=== PATIENT | male | born 1935 | race Two or more races ===

== ENCOUNTER → 2017-04-24 | Outpatient (REF) | payer MEDICARE, OTHER ==
[~2017-04-24] MED LIST: ASPI81TA85 PO; AZIT500T2 PO; CEFU500T2 PO; DELT1TAB PO; FLUC10TA PO; FURO80TA2 PO; LISI-542 PO; METF850T4 PO; MINI5CAP PO; ZOCO10TA PO
== END ==
LOC: M LAB REF 16:32
PROVIDERS: ATTEND Nurse Practitioner Family
DX: L03.115 Cellulitis of right lower limb (principal)

== ENCOUNTER → 2017-06-30 | Outpatient (CLI) | payer MEDICARE, OTHER ==
--- NOTE | 2017-06-30 15:53 | REP ---
DUPLEX DOPPLER ULTRASOUND RIGHT LOWER EXTREMITY ARTERIAL SYSTEM: Real-time ultrasound evaluation and duplex Doppler interrogation of right lower extremity arterial system is performed. Mild plaquing and narrowing is seen in the right common femoral, superficial femoral and popliteal arteries with relatively normal flow velocities, peak systolic velocity right common femoral artery 75 cm/s, superficial femoral artery 73 cm/s, and popliteal artery 29 cm/s, all with triphasic flow. Moderate calcified plaque is seen in the distal anterior and posterior tibial arteries with moderate diffuse plaquing throughout those vessels. No flow is seen in the distal posterior tibial artery. Proximally velocities 41 cm/s with triphasic flow. Peak systolic velocity of the proximal anterior tibial artery is 28 cm/s with triphasic flow and distal 21 cm/s with monophasic flow. SALLY could not be performed due to the heavily calcified vessels in the lower leg. Signed by Brandon Cardenas MD 06/30/2017 05:23 P
== END ==
LOC: M RAD 13:29
PROVIDERS: ATTEND Surgery
DX: I70.233 Atherosclerosis of native arteries of right leg with ulceration of ankle (principal)

== ENCOUNTER → 2017-07-18 | Outpatient (REF) | payer MEDICARE, OTHER ==
[2017-07-18 15:07] LABS: FOLATE 9.5 NG/ML
[2017-07-18 15:13] LABS: PERCENT SATURATION 16.8 % (19.7-50.0)
== END ==
LOC: M LAB REF 13:21
PROVIDERS: ATTEND Family Medicine
DX: D64.9 Anemia, unspecified (principal)

== ENCOUNTER → 2017-09-09 | Outpatient (CLI) | payer MEDICARE, OTHER ==
[2017-09-09 13:29] LABS: ALBUMIN 3.5 GM/DL (3.2-5.2); ALBUMIN/GLOBULIN RATIO 1.03 (1.00-1.93); BILIRUBIN,TOTAL 0.5 MG/DL (0.2-1.0); CALCIUM LEVEL 8.8 MG/DL (8.8-10.2); CREATININE FOR GFR 1.37 MG/DL (0.70-1.30); POTASSIUM SERUM 4.8 MEQ/L (3.5-5.1); TOTAL PROTEIN 6.9 GM/DL (6.4-8.2)
== END ==
LOC: M LAB 11:48
PROVIDERS: ATTEND Surgery Vascular Surgery
DX: I70.233 Atherosclerosis of native arteries of right leg with ulceration of ankle (principal)

== ENCOUNTER 2017-09-14 08:29 | Outpatient (CLI) | payer MEDICARE, OTHER ==
[~2017-09-14] VITALS: Ht 172.7 cm; Wt 102.3 kg
[2017-09-14] MEDS ORDERED: fentaNYL 100 MCG/2 ML INJECTION (J3010) As Ordered ONE (09:22)
[2017-09-14] MEDS ORDERED: PROTAMINE SULF INJ 50 MG/5 ML VIAL (J2720) As Ordered ONE (09:22)
[2017-09-14] MEDS ORDERED: MIDAZOLAM INJ 2 MG/2 ML VIAL (J2250) As Ordered ONE (09:23)
[2017-09-14] MEDS ORDERED: HEPARIN 1,000 UNITS/ML 10ML VIAL (FOR RADIOLOGY& DIALYSIS ONLY) As Ordered ONE (09:23)
[2017-09-14] MEDS ORDERED: ISOVUE-300 61% 50ML VIAL (Q9967) As Ordered ONE (09:23)
[2017-09-14 17:00] VITALS: BP 145/67
[2017-09-14 17:30] VITALS: BP 119/73
[2017-09-14 18:00] VITALS: BP 110/57
[2017-09-14 19:00] VITALS: BP 108/52
[2017-09-14 20:00] VITALS: BP 140/66
[2017-09-15 02:00] VITALS: BP 127/67
[2017-09-15 06:00] VITALS: BP 126/59
[2017-09-15 06:10] LABS: BASO % 0.3 % (0.0-1.0); EOS # 0.2 10^3/uL (0.0-0.50); EOS % 1.6 % (0.0-3.0); IMMATURE GRANULOCYTE % 0.5 % (0-0); LYMPH # 1.6 10^3/uL (1.5-4.5); LYMPH % 16.6 % (24.0-44.0); MEAN CORPUSCULAR HEMOGLOBIN 29.1 pg (27.0-33.0); MEAN CORPUSCULAR HGB CONC 32.1 g/dl (32.0-36.5); MEAN CORPUSCULAR VOLUME 90.8 fl (80.0-96.0); MONO # 1.4 10^3/uL (0.0-0.8); MONO % 14.5 % (0.0-5.0); NEUTROPHILS # 6.2 10^3/uL (1.8-7.7); NEUTROPHILS % 66.5 % (36.0-66.0); PLATELET COUNT, AUTOMATED 154 10^3/uL (150-450); RED CELL DISTRIBUTION WIDTH 13.4 % (11.5-14.5); WHITE BLOOD COUNT 9.3 10^3/uL (4.0-10.0)
[2017-09-15 06:39] LABS: ANION GAP 7 MEQ/L (8-16); BLOOD UREA NITROGEN 25 MG/DL (7-18); CALCIUM LEVEL 8.1 MG/DL (8.8-10.2); CARBON DIOXIDE LEVEL 27 MEQ/L (21-32); CHLORIDE LEVEL 113 MEQ/L (98-107); CREATININE FOR GFR 1.02 MG/DL (0.70-1.30); GLOMERULAR FILTRATION RATE > 60.0 (>35); GLUCOSE, FASTING 112 MG/DL (83-110); POTASSIUM SERUM 4.5 MEQ/L (3.5-5.1); SODIUM LEVEL 147 MEQ/L (136-145)
--- NOTE | 2017-09-21 06:37 | REPIR ---
DATE OF PROCEDURE: 09/14/2017 PREPROCEDURE DIAGNOSES: Chronic renal insufficiency, diabetes mellitus, hypertension, right lower extremity non-healing ulcer, right foot pain. POSTPROCEDURE DIAGNOSES: Chronic renal insufficiency, diabetes mellitus, hypertension, right lower extremity non-healing ulcer, right foot pain. PROCEDURE: Aortogram, iliofemoral angiogram, selective right common femoral artery catheter placement with right lower extremity angiogram, selective right superficial femoral artery catheter placement with right lower extremity angiogram, selective right popliteal artery catheter placement with right lower extremity angiogram, selective right anterior tibial artery catheter placement with right lower extremity angiogram, right anterior tibial artery arthrectomy with 1.85 mm Jetstream arthrectomy catheter, right popliteal artery arthrectomy with 1.85 mm Jetstream arthrectomy catheter, right anterior tibial artery angioplasty with 4 x 200 mm balloon and 4 x 100 mm balloon, right popliteal artery angioplasty with 4 x 200 and 4 x 100 mm balloon, Mynx closure device to close the left femoral arteriotomy. SURGEON: Dr. Cisco Luis. INDUSTRIAL CONVEYOR BELT REPAIRER: Cate Váqsuez and David Tobar. ANESTHESIA: Local with sedation with 1.5 mg of Versed, 50 mcg of Fentanyl and 10 mL of 2% lidocaine. ESTIMATED BLOOD LOSS: SEDATION TIME: From 11 a.m. to 12:53 a.m. for a total of 113 minutes. Sedation and cardiopulmonary monitoring were performed by the nurse in the room under my direct supervision. I was present for and directed the entire case. HEPARIN: 7000 units followed by 2000 unit bolus. FLUORO TIME: 24.7 minutes. CONTRAST: 21 mL. INDICATION: Patient is an 82-year-old male with a nonhealing right foot ulcer who has previously undergone anterior tibial artery angioplasty and now has delayed healing of his right foot wound and pain and will undergo a repeat right lower extremity angiogram with possible angioplasty, stent and/o arthrectomy. Risks, benefits and alternative treatment options were discussed with the patient. PROCEDURE: The patient was taken to the angiography suite and placed supine on the angiography room table and then prepped and draped in a standard surgical fashion. The left common femoral artery was then cannulated with a micropuncture needle after anesthetizing the overlying skin with 2% lidocaine. The micropuncture wire was advanced through the micropuncture needle which was upsized to a micropuncture sheath. A Bentson wire was advanced through the micropuncture sheath which was upsized to a #5-English sheath. A catheter was placed in the aorta and aortogram was performed. Catheter was pulled down to the level of the bifurcation of the iliac arteries and an iliofemoral angiogram was performed. Catheter was directed over the bifurcation of the iliac arteries and placed in the right common femoral artery and a right lower extremity angiogram was performed. Catheter was advanced as far distal into the right superficial femoral artery and a right lower extremity angiogram was performed. This showed stenosis at the popliteal/anterior tibial artery junction as well as in the mid portion and distal portion of the anterior tibial artery with stenoses on the order of 70-80%. The catheter was advanced into the popliteal artery and an angiogram performed and then this was used to cross lesions in the popliteal and anterior tibial arteries and a catheter was placed in the anterior tibial artery distally and an angiogram performed confirming intraluminal positioning. Arthrectomy of the entire length of the anterior tibial artery and popliteal artery were performed with a Jetstream 1.85 mm catheter. Completion angiogram showed some residual stenosis in the popliteal artery and anterior tibial artery as well as an area of the anterior tibial artery distal near the dorsalis pedis that was unable to be arthrectomized due to length of catheter. The distal and entire length of the anterior tibial artery was then angioplastied with a 4 x 200 balloon and the popliteal artery was angioplastied with a 4 x 200 balloon. Completion angiogram showed good angiographic result with no residual stenosis. The catheters and wires were removed and a Mynx closure device was used to close the arteriotomy in the left common femoral artery with an additional 10 minutes of adjunctive pressure applied for hemostasis. Dressings were then applied. Patient tolerated the procedure well. All instrument, sponge and needle counts were correct at the end of the case. There were no complications. Dr. Luis was present for and directed the entire case. Patient was transferred to the holding area and subsequently discharged in stable condition. RADIOLOGIC SUPERVISION INTERPRETATION: Arthrectomy was performed of the popliteal and anterior tibial arteries as well as angioplasty with 4 x 100 and 4 x 200 balloons. Mynx closure device was used to close the arteriotomy in the left common femoral artery.
[2017-09-26] MEDS ORDERED: SPIR1CAP INH (14:10)
[2017-09-26] MEDS ORDERED: FURO40TA2 PO (14:10)
[2017-09-26] MEDS ORDERED: ARNU1INH3 INH (14:10)
[2017-09-26] MEDS ORDERED: LISI-542 PO (14:10)
[2017-09-26] MEDS ORDERED: ACET50TAOT PO (14:10)
[2017-09-26] MEDS ORDERED: PANT40TA2 PO (14:10)
== END 2017-09-15 11:10 | disposition home or self-care (01) ==
LOC: M IRPRO 08:29 → M MSPAV 17:24 → M IRPRO 09-15 11:10
PROVIDERS: ATTEND Surgery Vascular Surgery
DX: I70.25 Atherosclerosis of native arteries of other extremities with ulceration (principal); L97.519 Non-pressure chronic ulcer of other part of right foot with unspecified severity; M79.671 Pain in right foot; N18.9 Chronic kidney disease, unspecified; I12.9 Hypertensive chronic kidney disease with stage 1 through stage 4 chronic kidney disease, or unspecified chronic kidney disease; E11.22 Type 2 diabetes mellitus with diabetic chronic kidney disease
CPT/HCPCS: 36415; 37225; 37229; 75710; 75774; 80048; 85025; 99152; 99153; C1724; C1725; C1760; C1769; C1887; C1894; J2250; J3010; Q9967

== ENCOUNTER 2017-09-26 12:02 | Inpatient (IN) | payer MEDICARE, OTHER ==
[2017-09-26 13:20] LABS: BASO % 0.2 % (0.0-1.0); EOS # 0.1 10^3/uL (0.0-0.50); EOS % 0.8 % (0.0-3.0); HEMATOCRIT 30.5 % (42.0-52.0); HEMOGLOBIN 9.6 g/dl (14.0-18.0); IMMATURE GRANULOCYTE # 0.1 10^3/uL (0-0); IMMATURE GRANULOCYTE % 1.1 % (0-0); LYMPH # 1.6 10^3/uL (1.5-4.5); LYMPH % 13.1 % (24.0-44.0); MEAN CORPUSCULAR HEMOGLOBIN 28.6 pg (27.0-33.0); MEAN CORPUSCULAR HGB CONC 31.5 g/dl (32.0-36.5); MEAN CORPUSCULAR VOLUME 90.8 fl (80.0-96.0); MONO # 1.3 10^3/uL (0.0-0.8); MONO % 10.9 % (0.0-5.0); NEUTROPHILS # 8.9 10^3/uL (1.8-7.7); NEUTROPHILS % 73.9 % (36.0-66.0); PLATELET COUNT, AUTOMATED 252 10^3/uL (150-450); RED BLOOD COUNT 3.36 10^6/uL (4.30-6.10); RED CELL DISTRIBUTION WIDTH 14.2 % (11.5-14.5); VENOUS BASE EXCESS 1.9 (-2.0-2.0); VENOUS HCO3 27.7 MEQ/L (23.0-27.0); VENOUS O2 SATURATION 59.4 % (60.0-80.0); VENOUS PARTIAL PRESSURE O2 34.1 mmHg (30.0-50.0); VENOUS STANDARD HCO3 25.4 MEQ/L; VENOUS TOTAL CO2 29.2 MEQ/L (24.0-28.0); WHITE BLOOD COUNT 12.1 10^3/uL (4.0-10.0)
[2017-09-26] MEDS: NS 1,000 ML IV (13:30)
[2017-09-26 13:33] LABS: INR 1.13; PROTHROMBIN TIME 14.7 SECONDS (12.4-14.5)
[2017-09-26] MEDS: IPRATROPIUM 0.5MG/ALBUTEROL 2.5MG INH SOL UD 3ML (DUONEB)(J7620) NEB ×2 (13:42→14:16)
[2017-09-26 13:45] LABS: ALBUMIN 2.9 GM/DL (3.2-5.2); ALBUMIN/GLOBULIN RATIO 0.94 (1.00-1.93); ALKALINE PHOSPHATASE 86 U/L (45-117); ALT/SGPT 18 U/L (12-78); AST/SGOT 24 U/L (7-37); BILIRUBIN,DIRECT 0.1 MG/DL (0.0-0.2); BILIRUBIN,TOTAL 0.3 MG/DL (0.2-1.0)
[2017-09-26 13:46] LABS: ANION GAP 8 MEQ/L (8-16); BLOOD UREA NITROGEN 43 MG/DL (7-18); CARBON DIOXIDE LEVEL 29 MEQ/L (21-32); CHLORIDE LEVEL 106 MEQ/L (98-107); CK-MB VALUE MASS 3.8 NG/ML (0.0-3.6); CPK CREATINE PHOSPHOKINASE 92 U/L (39-308); GLOMERULAR FILTRATION RATE 51.7 (>35); GLUCOSE, FASTING 108 MG/DL (83-110); MB/CK RELATIVE INDEX 4.13 (< OR =4); POTASSIUM SERUM 4.3 MEQ/L (3.5-5.1); SODIUM LEVEL 143 MEQ/L (136-145); TROPONIN I 0.15 NG/ML (< 0.10)
[2017-09-26 13:47] LABS: LACTIC ACID SEPSIS PROTOCOL 1.6 MMOL/L (0.4-2.0)
[2017-09-26] MEDS: AZITHROMYCIN INJ 500 MG, VIAL MATE ADAPTER 1 EACH in D5W 250 ML IV (14:00)
[2017-09-26] MEDS: CEFTRIAXONE SOD 1 GM in APPROPRIATE DILUENT 1 EA IV (15:13)
[2017-09-26] MEDS ORDERED: ISOVUE-370 76% 100ML VIAL (Q9967) As Ordered (15:33)
[2017-09-26 15:38] LABS: C REACTIVE PROTEIN QUANTITATIV 4.67 MG/DL (0.00-0.30); NT-PRO BNP 4690 PG/ML (<450)
[2017-09-26 17:09] LABS: CPK CREATINE PHOSPHOKINASE 93 U/L (39-308); TROPONIN I 0.17 NG/ML (< 0.10)
[2017-09-26] MEDS ORDERED: ONDANSETRON 4MG/2ML VIAL (J2405) IV (20:00)
[2017-09-26] MEDS ORDERED: ACETAMINOPHEN TAB 650MG DOSE (2X325MG) PO (20:00)
[2017-09-26] MEDS ORDERED: DEXTROSE 50% 50 ML SYRINGE IV (20:00)
[2017-09-26] MEDS ORDERED: GLUCOSE 4 GM CHEW TABLET PO (20:00)
[2017-09-26] MEDS ORDERED: GLUCAGON FOR INJ 1 MG VIAL (J1610) SC (20:00)
[2017-09-26] MEDS: FUROSEMIDE 40 MG/4 ML VIAL (J1940) IV (20:52)
[2017-09-26] MEDS: HumaLOG INSULIN (NovoLOG) PER UNIT SC (21:15)
[2017-09-26 21:20] LABS: BEDSIDE GLUCOSE 129 MG/DL (83-110)
[2017-09-26] MEDS: SENOKOT S TAB PO (21:20)
[2017-09-26 22:51] LABS: CPK CREATINE PHOSPHOKINASE 111 U/L (39-308); TROPONIN I 0.22 NG/ML (< 0.10)
[2017-09-26] MEDS: HEPARIN SOD (PORCINE) 5000 UNITS/ML VIAL SC (23:38)
[2017-09-26] MEDS: SIMVASTATIN 10 MG TAB PO (23:38)
[2017-09-27 01:35] LABS: MAGNESIUM LEVEL 2.1 MG/DL (1.8-2.4)
[2017-09-27] MEDS: IPRATROPIUM 0.5MG/ALBUTEROL 2.5MG INH SOL UD 3ML (DUONEB)(J7620) NEB ×4 (04:13→20:11)
[2017-09-27 05:13] LABS: HEMATOCRIT 31.3 % (42.0-52.0); HEMOGLOBIN 9.8 g/dl (14.0-18.0); MEAN CORPUSCULAR HEMOGLOBIN 27.9 pg (27.0-33.0); MEAN CORPUSCULAR HGB CONC 31.3 g/dl (32.0-36.5); MEAN CORPUSCULAR VOLUME 89.2 fl (80.0-96.0); PLATELET COUNT, AUTOMATED 248 10^3/uL (150-450); RED BLOOD COUNT 3.51 10^6/uL (4.30-6.10); RED CELL DISTRIBUTION WIDTH 14.4 % (11.5-14.5); WHITE BLOOD COUNT 16.4 10^3/uL (4.0-10.0)
[2017-09-27 05:27] LABS: ANION GAP 7 MEQ/L (8-16); BLOOD UREA NITROGEN 36 MG/DL (7-18); C REACTIVE PROTEIN QUANTITATIV 5.97 MG/DL (0.00-0.30); CALCIUM LEVEL 8.3 MG/DL (8.8-10.2); CARBON DIOXIDE LEVEL 27 MEQ/L (21-32); CHLORIDE LEVEL 107 MEQ/L (98-107); CPK CREATINE PHOSPHOKINASE 101 U/L (39-308); CREATININE FOR GFR 1.27 MG/DL (0.70-1.30); GLOMERULAR FILTRATION RATE 57.8 (>35); GLUCOSE, FASTING 130 MG/DL (83-110); MAGNESIUM LEVEL 2.2 MG/DL (1.8-2.4); POTASSIUM SERUM 4.1 MEQ/L (3.5-5.1); SODIUM LEVEL 141 MEQ/L (136-145); TROPONIN I 0.21 NG/ML (< 0.10)
[2017-09-27 05:28] LABS: CK-MB VALUE MASS 4.1 NG/ML (0.0-3.6); MB/CK RELATIVE INDEX 4.05 (< OR =4)
[2017-09-27] MEDS: HEPARIN SOD (PORCINE) 5000 UNITS/ML VIAL SC ×3 (05:54→21:05)
[2017-09-27] MEDS: HumaLOG INSULIN (NovoLOG) PER UNIT SC ×4 (07:42→21:00)
[2017-09-27] MEDS: SENOKOT S TAB PO ×2 (08:44→21:05)
[2017-09-27] MEDS: ASPIRIN 81 MG ENTERIC TAB PO (08:44)
[2017-09-27] MEDS: PANTOPRAZOLE 40MG TAB (PROTONIX) PO (08:44)
[2017-09-27] MEDS: FUROSEMIDE 40 MG/4 ML VIAL (J1940) IV ×2 (08:44→16:59)
[2017-09-27] MEDS ORDERED: ARNUITY ELLIPTA INH (09:00)
[2017-09-27 11:27] LABS: BEDSIDE GLUCOSE 150 MG/DL (83-110)
[2017-09-27 11:29] LABS: REASON FOR REVIEW COMPREHENSIVE REVIEW; SLIDE REVIEW Report; SOURCE PERIPHERAL SMEAR
[2017-09-27 11:30] LABS: RETIC HEMOGLOBIN EQUIVALENT 26.4 pg (24-36); RETICULOCYTE # 118.7 10^9/L (17-77); RETICULOCYTE % 3.5 % (0.5-1.5)
[2017-09-27 11:58] LABS: TROPONIN I 0.15 NG/ML (< 0.10)
[2017-09-27 11:58] LABS: FERRITIN 77 NG/ML (26-388); IRON (FE) 16 UG/DL (65-175); PERCENT SATURATION 4.7 % (19.7-50.0); TOTAL IRON BINDING CAPACITY 341 UG/DL (250-450)
[2017-09-27] MEDS: methylPREDNISolone INJ 125 MG/2 ML VIAL (J2930) IV ×2 (12:01→18:09)
[2017-09-27] MEDS: TIOTROPIUM INHALER/CAPSULE (SPIRIVA) INH (13:15)
[2017-09-27] MEDS: CEFTRIAXONE SOD 2 GM in APPROPRIATE DILUENT 1 EA IV (14:48)
[2017-09-27 16:51] LABS: BEDSIDE GLUCOSE 317 MG/DL (83-110)
[2017-09-27] MEDS: AZITHROMYCIN INJ 500 MG, VIAL MATE ADAPTER 1 EACH in D5W 250 ML IV (16:58)
[2017-09-27 20:46] LABS: BEDSIDE GLUCOSE 198 MG/DL (83-110)
[2017-09-27] MEDS: SIMVASTATIN 10 MG TAB PO (21:04)
[2017-09-28] MEDS: IPRATROPIUM 0.5MG/ALBUTEROL 2.5MG INH SOL UD 3ML (DUONEB)(J7620) NEB ×4 (02:34→19:20)
[2017-09-28] MEDS: methylPREDNISolone INJ 125 MG/2 ML VIAL (J2930) IV ×3 (03:59→19:39)
[2017-09-28] MEDS: HEPARIN SOD (PORCINE) 5000 UNITS/ML VIAL SC ×3 (05:19→21:39)
[2017-09-28 05:59] LABS: HEMATOCRIT 29.9 % (42.0-52.0); HEMOGLOBIN 9.4 g/dl (14.0-18.0); MEAN CORPUSCULAR HEMOGLOBIN 28.1 pg (27.0-33.0); MEAN CORPUSCULAR HGB CONC 31.4 g/dl (32.0-36.5); MEAN CORPUSCULAR VOLUME 89.3 fl (80.0-96.0); PLATELET COUNT, AUTOMATED 224 10^3/uL (150-450); RED BLOOD COUNT 3.35 10^6/uL (4.30-6.10); RED CELL DISTRIBUTION WIDTH 14.3 % (11.5-14.5); WHITE BLOOD COUNT 13.9 10^3/uL (4.0-10.0)
[2017-09-28 06:14] LABS: ANION GAP 9 MEQ/L (8-16); BLOOD UREA NITROGEN 33 MG/DL (7-18); C REACTIVE PROTEIN QUANTITATIV 9.93 MG/DL (0.00-0.30); CALCIUM LEVEL 8.1 MG/DL (8.8-10.2); CARBON DIOXIDE LEVEL 26 MEQ/L (21-32); CHLORIDE LEVEL 106 MEQ/L (98-107); CREATININE FOR GFR 1.34 MG/DL (0.70-1.30); GLOMERULAR FILTRATION RATE 54.3 (>35); GLUCOSE, FASTING 170 MG/DL (83-110); MAGNESIUM LEVEL 2.4 MG/DL (1.8-2.4); POTASSIUM SERUM 4.2 MEQ/L (3.5-5.1); SODIUM LEVEL 141 MEQ/L (136-145)
[2017-09-28] MEDS: TIOTROPIUM INHALER/CAPSULE (SPIRIVA) INH (08:02)
[2017-09-28] MEDS ORDERED: ARNUITY ELLIPTA 200 MCG INH (09:00)
[2017-09-28] MEDS: HumaLOG INSULIN (NovoLOG) PER UNIT SC ×4 (09:22→20:14)
[2017-09-28] MEDS: PANTOPRAZOLE 40MG TAB (PROTONIX) PO (09:23)
[2017-09-28] MEDS: ASPIRIN 81 MG ENTERIC TAB PO (09:23)
[2017-09-28] MEDS: SENOKOT S TAB PO ×2 (09:23→20:14)
[2017-09-28] MEDS: FUROSEMIDE 40 MG/4 ML VIAL (J1940) IV ×2 (09:23→17:08)
[2017-09-28] MEDS: FERROUS SULFATE 325MG TAB PO ×2 (11:24→20:13)
[2017-09-28 12:43] LABS: BEDSIDE GLUCOSE 200 MG/DL (83-110)
[2017-09-28] MEDS: CEFTRIAXONE SOD 2 GM in APPROPRIATE DILUENT 1 EA IV (14:54)
[2017-09-28 17:03] LABS: BEDSIDE GLUCOSE 186 MG/DL (83-110)
[2017-09-28] MEDS: AZITHROMYCIN INJ 500 MG, VIAL MATE ADAPTER 1 EACH in D5W 250 ML IV (17:08)
[2017-09-28] MEDS: SIMVASTATIN 10 MG TAB PO (20:13)
[2017-09-28 20:18] LABS: BEDSIDE GLUCOSE 190 MG/DL (83-110)
[2017-09-29] MEDS: methylPREDNISolone INJ 125 MG/2 ML VIAL (J2930) IV ×3 (02:07→19:32)
[2017-09-29] MEDS: IPRATROPIUM 0.5MG/ALBUTEROL 2.5MG INH SOL UD 3ML (DUONEB)(J7620) NEB ×4 (02:42→19:58)
[2017-09-29] MEDS ORDERED: SLF 3 ML SYR IV (02:45)
[2017-09-29 04:57] LABS: HEMATOCRIT 28.6 % (42.0-52.0); HEMOGLOBIN 9.1 g/dl (14.0-18.0); MEAN CORPUSCULAR HEMOGLOBIN 28.1 pg (27.0-33.0); MEAN CORPUSCULAR HGB CONC 31.8 g/dl (32.0-36.5); MEAN CORPUSCULAR VOLUME 88.3 fl (80.0-96.0); PLATELET COUNT, AUTOMATED 241 10^3/uL (150-450); RED BLOOD COUNT 3.24 10^6/uL (4.30-6.10); RED CELL DISTRIBUTION WIDTH 14.4 % (11.5-14.5); WHITE BLOOD COUNT 14.9 10^3/uL (4.0-10.0)
[2017-09-29 05:19] LABS: ANION GAP 9 MEQ/L (8-16); BLOOD UREA NITROGEN 40 MG/DL (7-18); C REACTIVE PROTEIN QUANTITATIV 5.75 MG/DL (0.00-0.30); CALCIUM LEVEL 7.9 MG/DL (8.8-10.2); CARBON DIOXIDE LEVEL 28 MEQ/L (21-32); CHLORIDE LEVEL 105 MEQ/L (98-107); CREATININE FOR GFR 1.36 MG/DL (0.70-1.30); GLOMERULAR FILTRATION RATE 53.4 (>35); GLUCOSE, FASTING 196 MG/DL (83-110); MAGNESIUM LEVEL 2.6 MG/DL (1.8-2.4); POTASSIUM SERUM 3.9 MEQ/L (3.5-5.1); SODIUM LEVEL 142 MEQ/L (136-145)
[2017-09-29] MEDS: SLF 3 ML SYR IV ×3 (05:29→21:01)
[2017-09-29] MEDS: HEPARIN SOD (PORCINE) 5000 UNITS/ML VIAL SC ×3 (05:29→21:00)
[2017-09-29] MEDS: TIOTROPIUM INHALER/CAPSULE (SPIRIVA) INH (08:03)
[2017-09-29] MEDS: ARNUITY ELLIPTA 200 MCG INH (08:03)
[2017-09-29] MEDS: HumaLOG INSULIN (NovoLOG) PER UNIT SC ×4 (08:37→21:00)
[2017-09-29] MEDS: FERROUS SULFATE 325MG TAB PO ×2 (08:38→21:00)
[2017-09-29] MEDS: SENOKOT S TAB PO ×2 (08:38→21:00)
[2017-09-29] MEDS: PANTOPRAZOLE 40MG TAB (PROTONIX) PO (08:38)
[2017-09-29] MEDS: ASPIRIN 81 MG ENTERIC TAB PO (08:38)
[2017-09-29] MEDS: FUROSEMIDE 40 MG/4 ML VIAL (J1940) IV ×2 (08:38→17:20)
[2017-09-29 12:09] LABS: BEDSIDE GLUCOSE 112 MG/DL (83-110)
[2017-09-29] MEDS: AZITHROMYCIN 250 MG TAB PO (15:15)
[2017-09-29] MEDS: CEFTRIAXONE SOD 2 GM in APPROPRIATE DILUENT 1 EA IV (15:16)
[2017-09-29 16:56] LABS: BEDSIDE GLUCOSE 213 MG/DL (83-110)
[2017-09-29] MEDS: SIMVASTATIN 10 MG TAB PO (21:00)
[2017-09-29 21:04] LABS: BEDSIDE GLUCOSE 208 MG/DL (83-110)
[2017-09-30] MEDS: IPRATROPIUM 0.5MG/ALBUTEROL 2.5MG INH SOL UD 3ML (DUONEB)(J7620) NEB ×4 (01:31→20:54)
[2017-09-30] MEDS: methylPREDNISolone INJ 125 MG/2 ML VIAL (J2930) IV ×3 (03:39→18:58)
[2017-09-30 05:11] LABS: HEMOGLOBIN 9.1 g/dl (14.0-18.0); MEAN CORPUSCULAR HGB CONC 31.4 g/dl (32.0-36.5); MEAN CORPUSCULAR VOLUME 89.2 fl (80.0-96.0); PLATELET COUNT, AUTOMATED 245 10^3/uL (150-450); RED BLOOD COUNT 3.25 10^6/uL (4.30-6.10); RED CELL DISTRIBUTION WIDTH 14.3 % (11.5-14.5); WHITE BLOOD COUNT 13.4 10^3/uL (4.0-10.0)
[2017-09-30] MEDS: HEPARIN SOD (PORCINE) 5000 UNITS/ML VIAL SC ×3 (05:21→21:08)
[2017-09-30] MEDS: SLF 3 ML SYR IV ×3 (05:21→21:08)
[2017-09-30 05:27] LABS: ANION GAP 7 MEQ/L (8-16); BLOOD UREA NITROGEN 46 MG/DL (7-18); CALCIUM LEVEL 8.2 MG/DL (8.8-10.2); CARBON DIOXIDE LEVEL 30 MEQ/L (21-32); CHLORIDE LEVEL 106 MEQ/L (98-107); CREATININE FOR GFR 1.43 MG/DL (0.70-1.30); GLOMERULAR FILTRATION RATE 50.4 (>35); GLUCOSE, FASTING 190 MG/DL (83-110); MAGNESIUM LEVEL 2.7 MG/DL (1.8-2.4); POTASSIUM SERUM 3.9 MEQ/L (3.5-5.1); SODIUM LEVEL 143 MEQ/L (136-145)
[2017-09-30] MEDS: ARNUITY ELLIPTA 200 MCG INH (07:30)
[2017-09-30] MEDS: TIOTROPIUM INHALER/CAPSULE (SPIRIVA) INH (07:30)
[2017-09-30] MEDS: HumaLOG INSULIN (NovoLOG) PER UNIT SC ×4 (08:13→20:35)
[2017-09-30] MEDS: FUROSEMIDE 40 MG/4 ML VIAL (J1940) IV (08:13)
[2017-09-30] MEDS: SENOKOT S TAB PO ×2 (08:13→21:08)
[2017-09-30] MEDS: FERROUS SULFATE 325MG TAB PO ×2 (08:14→21:08)
[2017-09-30] MEDS: AZITHROMYCIN 250 MG TAB PO (08:14)
[2017-09-30] MEDS: PANTOPRAZOLE 40MG TAB (PROTONIX) PO (08:14)
[2017-09-30] MEDS: ASPIRIN 81 MG ENTERIC TAB PO (08:14)
[2017-09-30 11:56] LABS: BEDSIDE GLUCOSE 299 MG/DL (83-110)
[2017-09-30] MEDS: CEFTRIAXONE SOD 2 GM in APPROPRIATE DILUENT 1 EA IV (14:57)
[2017-09-30 16:49] LABS: BEDSIDE GLUCOSE 190 MG/DL (83-110)
[2017-09-30] MEDS: FUROSEMIDE 20 MG TAB PO (18:09)
[2017-09-30 20:33] LABS: BEDSIDE GLUCOSE 240 MG/DL (83-110)
[2017-09-30] MEDS: SIMVASTATIN 10 MG TAB PO (21:08)
[2017-10-01] MEDS: IPRATROPIUM 0.5MG/ALBUTEROL 2.5MG INH SOL UD 3ML (DUONEB)(J7620) NEB ×4 (02:00→19:53)
[2017-10-01] MEDS: methylPREDNISolone INJ 125 MG/2 ML VIAL (J2930) IV ×3 (04:21→18:18)
[2017-10-01] MEDS: HEPARIN SOD (PORCINE) 5000 UNITS/ML VIAL SC ×3 (05:48→20:54)
[2017-10-01] MEDS: SLF 3 ML SYR IV ×3 (05:49→20:57)
[2017-10-01 06:31] LABS: HEMATOCRIT 29.8 % (42.0-52.0); HEMOGLOBIN 9.2 g/dl (14.0-18.0); MEAN CORPUSCULAR HGB CONC 30.9 g/dl (32.0-36.5); MEAN CORPUSCULAR VOLUME 90.9 fl (80.0-96.0); PLATELET COUNT, AUTOMATED 232 10^3/uL (150-450); RED BLOOD COUNT 3.28 10^6/uL (4.30-6.10); RED CELL DISTRIBUTION WIDTH 14.1 % (11.5-14.5)
[2017-10-01 06:49] LABS: ANION GAP 6 MEQ/L (8-16); BLOOD UREA NITROGEN 47 MG/DL (7-18); C REACTIVE PROTEIN QUANTITATIV 1.81 MG/DL (0.00-0.30); CARBON DIOXIDE LEVEL 32 MEQ/L (21-32); CHLORIDE LEVEL 107 MEQ/L (98-107); CREATININE FOR GFR 1.35 MG/DL (0.70-1.30); GLOMERULAR FILTRATION RATE 53.9 (>35); GLUCOSE, FASTING 159 MG/DL (83-110); MAGNESIUM LEVEL 2.9 MG/DL (1.8-2.4); SODIUM LEVEL 145 MEQ/L (136-145)
[2017-10-01 06:59] LABS: POTASSIUM SERUM 4.9 MEQ/L (3.5-5.1)
[2017-10-01] MEDS: ARNUITY ELLIPTA 200 MCG INH (07:52)
[2017-10-01] MEDS: TIOTROPIUM INHALER/CAPSULE (SPIRIVA) INH (07:52)
[2017-10-01] MEDS: ASPIRIN 81 MG ENTERIC TAB PO (08:29)
[2017-10-01] MEDS: FERROUS SULFATE 325MG TAB PO ×2 (08:29→20:53)
[2017-10-01] MEDS: AZITHROMYCIN 250 MG TAB PO (08:29)
[2017-10-01] MEDS: HumaLOG INSULIN (NovoLOG) PER UNIT SC ×4 (08:29→20:57)
[2017-10-01] MEDS: FUROSEMIDE 20 MG TAB PO ×2 (08:29→17:13)
[2017-10-01] MEDS: PANTOPRAZOLE 40MG TAB (PROTONIX) PO (08:30)
[2017-10-01] MEDS: SENOKOT S TAB PO ×2 (08:30→20:53)
[2017-10-01] MEDS: NYSTATIN 100,000 UNITS/GM TOPICAL PWD 15 GM TOP ×2 (11:02→20:56)
[2017-10-01 11:45] LABS: BEDSIDE GLUCOSE 214 MG/DL (83-110)
[2017-10-01] MEDS: CEFTRIAXONE SOD 2 GM in APPROPRIATE DILUENT 1 EA IV (14:31)
[2017-10-01 17:21] LABS: BEDSIDE GLUCOSE 182 MG/DL (83-110)
[2017-10-01 20:51] LABS: BEDSIDE GLUCOSE 232 MG/DL (83-110)
[2017-10-01] MEDS: SIMVASTATIN 10 MG TAB PO (20:53)
[2017-10-02] MEDS: IPRATROPIUM 0.5MG/ALBUTEROL 2.5MG INH SOL UD 3ML (DUONEB)(J7620) NEB ×4 (02:00→21:59)
[2017-10-02] MEDS: methylPREDNISolone INJ 125 MG/2 ML VIAL (J2930) IV (02:49)
[2017-10-02] MEDS: SLF 3 ML SYR IV ×3 (02:49→22:26)
[2017-10-02] MEDS: LevoFLOXacin 500 MG TABLET PO (06:49)
[2017-10-02] MEDS: HEPARIN SOD (PORCINE) 5000 UNITS/ML VIAL SC ×3 (06:49→22:26)
[2017-10-02 07:27] LABS: HEMATOCRIT 29.7 % (42.0-52.0); HEMOGLOBIN 9.4 g/dl (14.0-18.0); MEAN CORPUSCULAR HEMOGLOBIN 28.1 pg (27.0-33.0); MEAN CORPUSCULAR HGB CONC 31.6 g/dl (32.0-36.5); MEAN CORPUSCULAR VOLUME 88.9 fl (80.0-96.0); PLATELET COUNT, AUTOMATED 221 10^3/uL (150-450); RED BLOOD COUNT 3.34 10^6/uL (4.30-6.10); WHITE BLOOD COUNT 11.1 10^3/uL (4.0-10.0)
[2017-10-02 07:45] LABS: ANION GAP 3 MEQ/L (8-16); BLOOD UREA NITROGEN 48 MG/DL (7-18); C REACTIVE PROTEIN QUANTITATIV 1.18 MG/DL (0.00-0.30); CALCIUM LEVEL 8.3 MG/DL (8.8-10.2); CARBON DIOXIDE LEVEL 34 MEQ/L (21-32); CHLORIDE LEVEL 102 MEQ/L (98-107); CREATININE FOR GFR 1.42 MG/DL (0.70-1.30); GLOMERULAR FILTRATION RATE 50.8 (>35); GLUCOSE, FASTING 181 MG/DL (83-110); MAGNESIUM LEVEL 2.6 MG/DL (1.8-2.4); POTASSIUM SERUM 4.7 MEQ/L (3.5-5.1); SODIUM LEVEL 139 MEQ/L (136-145)
[2017-10-02] MEDS: TIOTROPIUM INHALER/CAPSULE (SPIRIVA) INH (08:11)
[2017-10-02] MEDS: ARNUITY ELLIPTA 200 MCG INH (08:11)
[2017-10-02] MEDS: ASPIRIN 81 MG ENTERIC TAB PO (08:22)
[2017-10-02] MEDS: FERROUS SULFATE 325MG TAB PO ×2 (08:22→22:25)
[2017-10-02] MEDS: PANTOPRAZOLE 40MG TAB (PROTONIX) PO (08:22)
[2017-10-02] MEDS: SENOKOT S TAB PO ×2 (08:22→22:25)
[2017-10-02] MEDS: FUROSEMIDE 20 MG TAB PO ×2 (08:22→16:52)
[2017-10-02] MEDS: HumaLOG INSULIN (NovoLOG) PER UNIT SC ×4 (08:23→21:00)
[2017-10-02] MEDS: predniSONE 20 MG TAB PO (08:23)
[2017-10-02] MEDS: NYSTATIN 100,000 UNITS/GM TOPICAL PWD 15 GM TOP ×2 (08:34→22:26)
[2017-10-02 11:48] LABS: BEDSIDE GLUCOSE 252 MG/DL (83-110)
[2017-10-02 16:43] LABS: BEDSIDE GLUCOSE 240 MG/DL (83-110)
[2017-10-02 21:11] LABS: BEDSIDE GLUCOSE 245 MG/DL (83-110)
[2017-10-02] MEDS: SIMVASTATIN 10 MG TAB PO (22:25)
[2017-10-03] MEDS: IPRATROPIUM 0.5MG/ALBUTEROL 2.5MG INH SOL UD 3ML (DUONEB)(J7620) NEB ×4 (02:00→20:40)
[2017-10-03] MEDS: HEPARIN SOD (PORCINE) 5000 UNITS/ML VIAL SC ×3 (06:06→21:11)
[2017-10-03] MEDS: SLF 3 ML SYR IV ×3 (06:07→21:11)
[2017-10-03 07:16] LABS: HEMATOCRIT 31.9 % (42.0-52.0); HEMOGLOBIN 9.9 g/dl (14.0-18.0); MEAN CORPUSCULAR HEMOGLOBIN 27.3 pg (27.0-33.0); MEAN CORPUSCULAR VOLUME 87.9 fl (80.0-96.0); PLATELET COUNT, AUTOMATED 239 10^3/uL (150-450); RED BLOOD COUNT 3.63 10^6/uL (4.30-6.10); RED CELL DISTRIBUTION WIDTH 13.9 % (11.5-14.5); WHITE BLOOD COUNT 13.2 10^3/uL (4.0-10.0)
[2017-10-03 07:34] LABS: ANION GAP 6 MEQ/L (8-16); BLOOD UREA NITROGEN 42 MG/DL (7-18); CALCIUM LEVEL 8.1 MG/DL (8.8-10.2); CARBON DIOXIDE LEVEL 34 MEQ/L (21-32); CHLORIDE LEVEL 102 MEQ/L (98-107); CREATININE FOR GFR 1.22 MG/DL (0.70-1.30); GLOMERULAR FILTRATION RATE > 60.0 (>35); GLUCOSE, FASTING 132 MG/DL (83-110); MAGNESIUM LEVEL 2.6 MG/DL (1.8-2.4); POTASSIUM SERUM 4.1 MEQ/L (3.5-5.1); SODIUM LEVEL 142 MEQ/L (136-145)
[2017-10-03] MEDS: HumaLOG INSULIN (NovoLOG) PER UNIT SC ×4 (07:49→21:00)
[2017-10-03] MEDS: predniSONE 20 MG TAB PO (07:49)
[2017-10-03] MEDS: SENOKOT S TAB PO ×2 (07:49→21:11)
[2017-10-03] MEDS: FUROSEMIDE 20 MG TAB PO ×2 (07:50→17:19)
[2017-10-03] MEDS: FERROUS SULFATE 325MG TAB PO ×2 (07:50→21:11)
[2017-10-03] MEDS: NYSTATIN 100,000 UNITS/GM TOPICAL PWD 15 GM TOP ×2 (07:50→21:12)
[2017-10-03] MEDS: PANTOPRAZOLE 40MG TAB (PROTONIX) PO (07:50)
[2017-10-03] MEDS: ASPIRIN 81 MG ENTERIC TAB PO (07:50)
[2017-10-03] MEDS: TIOTROPIUM INHALER/CAPSULE (SPIRIVA) INH (08:00)
[2017-10-03 11:40] LABS: BEDSIDE GLUCOSE 150 MG/DL (83-110)
[2017-10-03] MEDS: ARNUITY ELLIPTA 200 MCG INH (11:45)
[2017-10-03 17:17] LABS: BEDSIDE GLUCOSE 250 MG/DL (83-110)
[2017-10-03 21:00] LABS: BEDSIDE GLUCOSE 153 MG/DL (83-110)
[2017-10-03] MEDS: SIMVASTATIN 10 MG TAB PO (21:11)
[2017-10-04] MEDS: IPRATROPIUM 0.5MG/ALBUTEROL 2.5MG INH SOL UD 3ML (DUONEB)(J7620) NEB ×4 (02:00→20:00)
[2017-10-04] MEDS: LevoFLOXacin 500 MG TABLET PO (06:23)
[2017-10-04] MEDS: SLF 3 ML SYR IV ×2 (06:24→14:10)
[2017-10-04] MEDS: HEPARIN SOD (PORCINE) 5000 UNITS/ML VIAL SC ×3 (06:24→20:59)
[2017-10-04] MEDS: TIOTROPIUM INHALER/CAPSULE (SPIRIVA) INH (07:16)
[2017-10-04] MEDS: ARNUITY ELLIPTA 200 MCG INH (07:17)
[2017-10-04 07:43] LABS: BEDSIDE GLUCOSE 111 MG/DL (83-110)
[2017-10-04] MEDS: FUROSEMIDE 20 MG TAB PO ×2 (08:10→17:15)
[2017-10-04] MEDS: HumaLOG INSULIN (NovoLOG) PER UNIT SC ×4 (08:10→20:56)
[2017-10-04] MEDS: SENOKOT S TAB PO ×2 (08:10→20:56)
[2017-10-04] MEDS: ASPIRIN 81 MG ENTERIC TAB PO (08:10)
[2017-10-04] MEDS: predniSONE 20 MG TAB PO (08:10)
[2017-10-04] MEDS: FERROUS SULFATE 325MG TAB PO ×2 (08:10→20:56)
[2017-10-04] MEDS: PANTOPRAZOLE 40MG TAB (PROTONIX) PO (08:10)
[2017-10-04] MEDS: NYSTATIN 100,000 UNITS/GM TOPICAL PWD 15 GM TOP ×2 (08:11→20:57)
[2017-10-04 12:16] LABS: BEDSIDE GLUCOSE 182 MG/DL (83-110)
[2017-10-04 16:53] LABS: BEDSIDE GLUCOSE 216 MG/DL (83-110)
[2017-10-04 20:19] LABS: BEDSIDE GLUCOSE 227 MG/DL (83-110)
[2017-10-04] MEDS: SIMVASTATIN 10 MG TAB PO (20:56)
[2017-10-05] MEDS: IPRATROPIUM 0.5MG/ALBUTEROL 2.5MG INH SOL UD 3ML (DUONEB)(J7620) NEB ×3 (00:44→13:31)
[2017-10-05] MEDS: HEPARIN SOD (PORCINE) 5000 UNITS/ML VIAL SC (05:55)
[2017-10-05 06:02] LABS: BEDSIDE GLUCOSE 104 MG/DL (83-110)
[2017-10-05] MEDS: FERROUS SULFATE 325MG TAB PO (08:07)
[2017-10-05] MEDS: ASPIRIN 81 MG ENTERIC TAB PO (08:07)
[2017-10-05] MEDS: SENOKOT S TAB PO (08:07)
[2017-10-05] MEDS: predniSONE 20 MG TAB PO (08:07)
[2017-10-05] MEDS: FUROSEMIDE 20 MG TAB PO (08:07)
[2017-10-05] MEDS: HumaLOG INSULIN (NovoLOG) PER UNIT SC ×2 (08:07→12:23)
[2017-10-05] MEDS: PANTOPRAZOLE 40MG TAB (PROTONIX) PO (08:07)
[2017-10-05] MEDS: NYSTATIN 100,000 UNITS/GM TOPICAL PWD 15 GM TOP (08:08)
[2017-10-05] MEDS: TIOTROPIUM INHALER/CAPSULE (SPIRIVA) INH (08:29)
[2017-10-05] MEDS: ARNUITY ELLIPTA 200 MCG INH (08:29)
[2017-10-05 12:14] LABS: BEDSIDE GLUCOSE 155 MG/DL (83-110)
== END 2017-10-05 14:00 | disposition home health service (06) | DRG 291 ==
LOC: M MS4PR 09-30 15:07 → M ED 12:02 → M PCU 22:47
DX: I13.0 Hypertensive heart and chronic kidney disease with heart failure and stage 1 through stage 4 chronic kidney disease, or unspecified chronic kidney disease (principal); I50.33 Acute on chronic diastolic (congestive) heart failure; J96.11 Chronic respiratory failure with hypoxia; J44.1 Chronic obstructive pulmonary disease with (acute) exacerbation; I24.8 Other forms of acute ischemic heart disease; E11.621 Type 2 diabetes mellitus with foot ulcer; L97.519 Non-pressure chronic ulcer of other part of right foot with unspecified severity; D50.9 Iron deficiency anemia, unspecified; E78.5 Hyperlipidemia, unspecified; N18.9 Chronic kidney disease, unspecified; I27.23 Pulmonary hypertension due to lung diseases and hypoxia; Z99.81 Dependence on supplemental oxygen; Z96.652 Presence of left artificial knee joint; Z79.82 Long term (current) use of aspirin; Z79.84 Long term (current) use of oral hypoglycemic drugs; Z79.899 Other long term (current) drug therapy

== ENCOUNTER → 2017-11-10 | Outpatient (CLI) | payer MEDICARE, OTHER | LOC: M WUC 15:30 | DX: I50.9 Heart failure, unspecified (principal); I51.7 Cardiomegaly; J98.4 Other disorders of lung | CPT/HCPCS: 71046 ==

== ENCOUNTER → 2018-05-18 | Outpatient (CLI) | payer MEDICARE, OTHER | LOC: M WUC 09:48 | DX: I51.7 Cardiomegaly (principal); J98.4 Other disorders of lung; I50.33 Acute on chronic diastolic (congestive) heart failure | CPT/HCPCS: 71046 ==

== ENCOUNTER → 2018-08-01 | Outpatient (REF) | payer MEDICARE, OTHER | LOC: M LAB REF 08-02 12:06 | DX: S91.001A Unspecified open wound, right ankle, initial encounter (principal); W18.30XA Fall on same level, unspecified, initial encounter; Y92.009 Unspecified place in unspecified non-institutional (private) residence as the place of occurrence of the external cause | CPT/HCPCS: 87186 ==

== ENCOUNTER → 2019-07-01 | Outpatient (CLI) | payer MEDICARE, OTHER ==
[~2019-07-01] MED LIST changes: +ACET500T15 PO; +ARNU1INH3 INH; +FURO20TA2 PO; +FURO40TA2 PO; +LEVA1TAB2 PO; +PANT40TA3 PO; +PRED10TA2 PO; +SPIR1CAP INH
--- NOTE | 2019-07-01 11:57 | REP ---
Renal sonography: History: Chronic kidney disease stage III. Chronic CHF. Findings: Renal cortical echogenicity pattern is increased bilaterally consistent with chronic medical renal disease. There is no evidence of hydronephrosis on either side. There is a cyst at the upper pole left kidney measuring 3.1 x 2.4 x 2.7 cm. No renal mass lesion is observed on either side. Left renal dimensions are 10.7 x 5.9 x 5.5 cm. The right kidney measures 11.7 x 5.8 x 6.7 cm. Impression: Upper pole cyst left kidney. Increased renal cortical echogenicity consistent with chronic medical renal disease. No hydronephrosis seen. Electronically Signed by Sreekanth Suresh MD 07/01/2019 11:48 A
--- NOTE | 2019-07-01 13:15 | REP ---
Limited pelvic bladder sonography: History: Chronic kidney disease stage 3, chronic CHF. Findings: Transabdominal scanning demonstrates mild diffuse bladder wall thickening. No filling defect or mass is seen in the urinary bladder. Pre-void bladder volume is calculated to 283 mL. Postvoid volume is calculated at 241 mL, 85% postvoid residual. Impression: Incomplete bladder emptying with large postvoid residual. Thickened bladder correa. Electronically Signed by Sreekanth Suresh MD 07/01/2019 02:22 P
== END ==
LOC: M RAD 07:59
PROVIDERS: ATTEND Internal Medicine Nephrology
DX: N18.3 Chronic kidney disease, stage 3 (moderate) (principal); I50.32 Chronic diastolic (congestive) heart failure; I12.9 Hypertensive chronic kidney disease with stage 1 through stage 4 chronic kidney disease, or unspecified chronic kidney disease

== ENCOUNTER 2019-08-19 13:25 | Inpatient (IN) | payer MEDICARE, OTHER ==
[~2019-08-19] VITALS: Ht 172.7 cm; Wt 93.8 kg
[~2019-08-19 13:25] MED LIST changes: -AZIT500T2 PO; +AZIT500T5 PO
[2019-08-19] MEDS ORDERED: ALBUTEROL SULFATE 2.5 MG/0.5 ML INH NEB SOLN INH ONE (14:00)
[2019-08-19] MEDS ORDERED: IPRATROPIUM 0.5MG/ALBUTEROL 2.5MG INH SOL UD 3ML (DUONEB)(J7620) NEB ONE (14:00)
[2019-08-19] MEDS ORDERED: TORS20TA2 PO (14:16)
[2019-08-19 14:17] LABS: ABG BASE EXCESS 4.5 (-2.0-2.0); ABG HCO3 28.2 MEQ/L (22.0-26.0); ABG PARTIAL PRESSURE CO2 38.5 mmHg (35.0-45.0); ABG PARTIAL PRESSURE O2 71.9 mmHg (75.0-100.0); ABG STANDARD HCO3 28.5 MEQ/L (22.0-26.0); ABG TOTAL CO2 29.3 MEQ/L (23.0-31.0); ABG pH (ARTERIAL) 7.482 UNITS (7.350-7.450)
[2019-08-19 14:17] LABS: BASO % 0.2 % (0.0-1.0); HEMATOCRIT 39.4 % (42.0-52.0); HEMOGLOBIN 12.5 g/dl (13.5-17.5); LYMPH % 7.8 % (24.0-44.0); MEAN CORPUSCULAR HEMOGLOBIN 30.5 pg (27.0-33.0); MEAN CORPUSCULAR HGB CONC 31.7 g/dl (32.0-36.5); MEAN CORPUSCULAR VOLUME 96.1 fl (80.0-96.0); MONO # 0.9 10^3/uL (0.0-0.8); MONO % 6.8 % (0.0-5.0); NEUTROPHILS # 10.7 10^3/uL (1.5-8.5); PLATELET COUNT, AUTOMATED 167 10^3/uL (150-450); WHITE BLOOD COUNT 12.8 10^3/uL (4.0-10.0)
[2019-08-19 14:42] LABS: INFLUENZA A AMPLIFICATION NEGATIVE (NEGATIVE); INFLUENZA B AMPLIFICATION NEGATIVE (NEGATIVE)
--- NOTE | 2019-08-19 14:45 | REP ---
PORTABLE CHEST X-RAY: Sitting AP view. HISTORY: Dyspnea. Cough. COMPARISON CHEST X-RAY: May 18, 2018. FINDINGS: Monitoring electrodes are seen. Right hemidiaphragm is somewhat elevated unchanged. Moderate cardiac enlargement is observed. The thoracic aorta is tortuous. Vascular and interstitial markings are diffusely prominent and there is some mild perihilar fibrosis. No acute infiltrate is seen. IMPRESSION: Cardiomegaly. Vascular congestion. No bee pulmonary edema or pleural effusion. Right hemidiaphragm slightly elevated. Relatively low level of inspiration. Electronically Signed by Sreekanth Suresh MD 08/19/2019 05:02 P
[2019-08-19 14:51] LABS: ALBUMIN 3.2 GM/DL (3.2-5.2); ALT/SGPT 24 U/L (12-78); BILIRUBIN,DIRECT 0.1 MG/DL (0.0-0.2); BILIRUBIN,TOTAL 0.4 MG/DL (0.2-1.0); BLOOD UREA NITROGEN 38 MG/DL (7-18); CALCIUM LEVEL 9.3 MG/DL (8.8-10.2); CARBON DIOXIDE LEVEL 31 MEQ/L (21-32); CHLORIDE LEVEL 94 MEQ/L (98-107); CK-MB VALUE MASS 2.1 NG/ML (<3.6); CPK CREATINE PHOSPHOKINASE 160 U/L (39-308); CREATININE FOR GFR 1.52 MG/DL (0.70-1.30); GLOMERULAR FILTRATION RATE 46.7 (>35); GLUCOSE, FASTING 230 MG/DL (70-100); MB/CK RELATIVE INDEX 1.31 (< OR =4); NT-PRO BNP 1193 PG/ML (<450); POTASSIUM SERUM 4.3 MEQ/L (3.5-5.1); SODIUM LEVEL 133 MEQ/L (136-145); THYROID STIMULATING HORMONE 0.405 uIU/ML (0.358-3.740); THYROXINE (T4) 8.5 UG/DL (4.5-12.0); TOTAL PROTEIN 6.9 GM/DL (6.4-8.2); TROPONIN I < 0.02 NG/ML (< 0.10)
[2019-08-19] MEDS ORDERED: methylPREDNISolone INJ 125 MG/2 ML VIAL (J2930) IV ONE (15:15)
[2019-08-19] MEDS ORDERED: ISOVUE-370 76% 100ML VIAL (Q9967) As Ordered ONE (15:19)
[2019-08-19] MEDS ORDERED: CLOB0.0548 TOP (15:31)
[2019-08-19] MEDS ORDERED: FLOM0.4C39 PO (15:31)
[2019-08-19] MEDS ORDERED: FINA5TAB2 PO (15:31)
[2019-08-19] MEDS ORDERED: SPIR-10 PO (15:31)
[2019-08-19] MEDS ORDERED: PRED20TA PO (15:31)
[2019-08-19] MEDS ORDERED: VITMTA PO (15:31)
[2019-08-19] MEDS ORDERED: GLUCAGON FOR INJ 1 MG VIAL (J1610) SC PRN (15:45)
[2019-08-19] MEDS ORDERED: DEXTROSE 50% 50 ML SYRINGE IV PRN (15:45)
[2019-08-19] MEDS ORDERED: GLUCOSE 4 GM CHEW TABLET PO PRN (15:45)
[2019-08-19] MEDS ORDERED: ACETAMINOPHEN 500 MG TAB PO PRN (15:45)
[2019-08-19] MEDS: LEVALBUTEROL 1.25 MG/0.5 ML CONCENTRATE NEB NEB SCH ×2 (16:31→21:58)
--- NOTE | 2019-08-19 17:19 | REP ---
CT pulmonary angiogram: With IV contrast. History: Shortness of breath. Elevated lactate. Rule out pulmonary embolus or pneumonia. Comparison is made with today's chest x-ray. Comparison chest CT study September 26, 2017. Contrast dose: 75 ML of Isovue [address] technique: Helical scanning is acquired and overlapping 1.5 mm and contiguous 3 mm axial images are reformatted. In addition, maximum intensity projection and multiplanar re-formation images are generated in sagittal and coronal imaging projections. CT pulmonary angiographic findings: There is good opacification in the pulmonary arterial tree. Central pulmonary arteries are quite dilated consistent with pulmonary arterial hypertension. This is unchanged. The thoracic aorta shows no evidence of aneurysm or dissection. There is some vascular calcification. No pleural or pericardial effusion is seen. Coronary artery vascular calcification is observed. Four-chamber cardiomegaly is observed. Interstitial fibrosis and emphysematous changes are seen in the lung thorpe. No bee alveolar edema is appreciated. No pulmonary mass or significant pulmonary nodule is appreciated. No bony destructive lesion is seen. Impression: No CT evidence of pulmonary embolus. Four-chamber cardiomegaly. Dilated central pulmonary arteries with peripheral pruning consistent with pulmonary arterial hypertension. Pulmonary fibrosis and chronic changes bilaterally. No evidence of pleural effusion or bee pulmonary edema. Electronically Signed by Sreekanth Suresh MD 08/20/2019 08:20 A
[2019-08-19] MEDS: HumaLOG INSULIN (NovoLOG) PER UNIT SC SCH ×2 (17:44→21:15)
--- NOTE | 2019-08-19 18:45 | ECGEPIP ---
[facility] - ED Test Date: 2019-08-19 Pat Name: BLADIMIR ARAUJO Department: Room: - Gender: Male Money Counter: PMO : [id number] Requested By: Mery Parsons Order Number: [id number] Reading MD: Crhistel Muñoz Measurements Intervals [place] Rate: 80 P: 51 MO: 237 QRS: 24 QRSD: 91 T: 24 QT: 358 QTc: 414 Interpretive Statements SINUS RHYTHM WITH FIRST DEGREE AV BLOCK WITH OCCASIONAL SUPRAVENTRICULAR PREMATURE COMPLEXES LOW QRS VOLTAGE IN PRECORDIAL LEADS POSSIBLE ANTERIOR MYOCARDIAL INFARCTION, OF INDETERMINATE AGE baseline artifact may affect interpretation SIMILAR 09/26/17 Electronically Signed on 08-19-2019 18:45:06 EST by Christel Muñoz
--- NOTE | 2019-08-19 18:46 | HPE ---
DATE OF ADMISSION: 08/19/2019 The patient's structural steel engineer is Dr. Cisco Gilman and assistant sales center manager is Dr. Rojas. CHIEF COMPLAINT: Shortness of breath and cough. HISTORY OF PRESENT ILLNESS: This is an 84-year-old male with history of diastolic congestive heart failure, ejection fraction (EF) of 60% to 65% with preserved ejection fraction, severe tricuspid regurgitation, follows with Dr. Gilman as outpatient, had seen him this past summer with no changes in medications. The patient was given a heart monitor but had no significant change from prior according to the family at the bedside. The patient also follows with Dr. Rojas and was seen last summer. He was changed to Arnuity Ellipta. He complained of cough about a week ago and given a prednisone taper with no improvement. The patient initially noticed cough, white sputum without fever or chills, nausea, vomiting, abdominal pain, epigastric pain. Denies any chest pain, pressure, tightness, lightheadedness, or dizziness. He has noticed increased lower extremity edema, dyspnea on exertion, unable to work more than 20 feet, usually walks more than 50-100 feet normally. He has had a couple of days last week where he had loose bowel movements, twice in one day. No weight gain as he does not measure his weight at home but was previously 206 pounds. The patient has had no changes in appetite. Denies any sick contact. He usually sleeps with one pillow and lies down on his side. Denies any hemoptysis, diarrhea, bright red blood per rectum, melena or black tarry stools. The patient had been wheezing despite prednisone taper prompting him to come to the emergency room (ER) due to worsening distress. In the ER, he was found to be hypoxic at 86% on room air. He is normally chronically dependent on oxygen three liters at home, currently stable at 96% to 98% on his chronic three liters. The patient has slight white count of 12,000. Arterial blood gas was stable at 7.4, CO2 of 38, O2 of 71. The patient did have a chest x-ray showing increase in pulmonary vasculature but no bee edema, right hemidiaphragm slightly elevated. CT of the chest has no infiltrate, consolidation, pulmonary edema, pleural effusion. The patient has pulmonary arterial hypertension, four-chamber cardiomegaly with no CT evidence of pulmonary embolism. Hospitalist was called to admit for chronic obstructive pulmonary disease (COPD) exacerbation as the patient had wheezing, increased cough production with white sputum at home, and increasing hypoxia with probable early congestive heart failure, diastolic dysfunction. PAST MEDICAL HISTORY: 1. Dyslipidemia. 2. Hypertension. 3. Diabetes. 4. Chronic obstructive pulmonary disease (COPD). 5. Diastolic heart failure, ejection fraction (EF) of 60% to 65%, severe tricuspid regurgitation, mild aortic regurgitation, mild mitral regurgitation, trace pericardial effusion, severe pulmonary hypertension, possible cor pulmonale. 6. Obesity, body mass index (BMI) of 30.5. 7. Benign prostatic hypertrophy (BPH). 8. Stage III chronic kidney disease, baseline creatine of 1.3 to 1.4. PAST SURGICAL HISTORY: 1. Left hip surgery. 2. Left knee replacement. 3. Right ankle fracture with open reduction and internal fixation. 4. Angiogram by Dr. Luis. FAMILY HISTORY: Mother with heart disease. Father with coronary artery disease (CAD), myocardial infarction (OR). SOCIAL HISTORY: Lives at home. Denies smoking. Alcoholic beverages only during special occasions. No drug use. REVIEW OF SYSTEMS: Per history of present illness (HPI), 12-point system otherwise negative. HOSPITAL MEDICATIONS: - metformin 850 twice a day - prednisone 20 twice a day - fluticasone furoate one puff inhaled daily, Arnuity Ellipta - acetaminophen 1 gram by mouth every eight hours as needed for pain - aspirin 81 daily - clobetasol topically twice a day - finasteride 5 mg daily HOME MEDICATIONS: - multivitamin one tablet daily - Zocor 10 mg at bedtime - spironolactone 12.5 mg at bedtime - Flomax 0.4 daily - torsemide 40 mg daily PHYSICAL EXAMINATION: Temperature 98.7, pulse 95, respiratory rate 18, blood pressure 147/86, 96% on three liters nasal cannula. He was 86% on room air. GENERAL: The patient is awake, alert and oriented to person, place and time. Anicteric sclerae. No jaundice. Positive jugular venous distention. No thyromegaly or cervical lymphadenopathy. Moist mucous membranes. LUNGS: Diminished, bilateral wheezing and coarse rhonchi. Fine crackles at the basis. HEART: S1, S2, sinus rhythm. Systolic ejection murmur heard at the left lower sternal border with sustained heave on the right sternal border. ABDOMEN: Obese, soft, nontender, nondistended. EXTREMITIES: Positive 1+ pitting edema bilaterally, dorsalis pedis and posterior tibialis have been noted. LABORATORY DATA: White count 12.8, hemoglobin 12.5, hematocrit 39, platelet count 167. Sodium 133, potassium 4.3, chloride 94, bicarbonate 31, BUN 38, creatinine 1.52, glucose of 230, lactic acid of 2.1, BNP of 1193, troponin less than 0.02, total CK 150, MB fraction 2.1, albumin 3.2, total bilirubin 0.4, direct bilirubin 0.1, AST 25, ALT 24, alkaline phosphatase of 106. Blood: Two sets of blood cultures are pending. IMAGING STUDIES: CT chest showed no evidence of pulmonary embolism, four-chamber cardiomegaly, dilated central pulmonary artery with peripheral pruning consistent with pulmonary arterial hypertension, pulmonary fibrosis, and chronic changes bilateral. No evidence of pleural effusion or bee pulmonary edema. ASSESSMENT AND PLAN: This is an 84-year-old male with history of diastolic heart failure, chronic obstructive pulmonary disease (COPD), severe tricuspid regurgitation, cor pulmonale, severe pulmonary hypertension, obesity, hypertension, diabetes, dyslipidemia, presented to the emergency room with one-week history of cough productive of white sputum, increasing lower extremity edema, dyspnea on exertion of 20 feet, was found to have active wheezing bilaterally, admitted for two midnights as an inpatient for the following issues: 1. COPD exacerbation, currently on IV Solu-Medrol 60 mg IV every eight hours, Xopenex 1.25 mg every four hours, and supplemental oxygen to keep saturations at 88% to 92%. 2. Decompensated congestive heart failure, diastolic exacerbation, usually uses torsemide and spironolactone. The patient has increasing lower extremity edema, possible cor pulmonale due to severe pulmonary hypertension from severe tricuspid regurgitation and COPD. The patient will be changed to torsemide by mouth twice a day and given Zaroxolyn 10 mg prior to torsemide this evening. Strict intake and output, daily weights, two-liter fluid restriction and two-ray sodium diet. 3. Severe pulmonary hypertension, complicating his care, secondary to severe tricuspid regurgitation from known history of end-stage COPD. 4. Chronic hypoxic respiratory failure, on three liters oxygen nasal cannula. 5. Hypertension, currently controlled, chronically on torsemide and spironolactone. 6. Type 2 diabetes. Due to active congestive heart failure, hold oral hypoglycemics, place on sliding scale, monitor the patient on Solu-Medrol as this will increase his glucose, place on Levemir insulin with holding parameters and NovoLog insulin sliding scale with coverage with fingersticks before meals and at bedtime. Check A1c in the morning. 7. Lactic acidosis due to severe hypoxia from COPD exacerbation and early congestive heart failure. 8. Deep vein thrombosis (DVT) prophylaxis with Lovenox renal dosing. MTDD
[2019-08-19] MEDS ORDERED: TORSEMIDE 20 MG TAB PO SCH (19:00)
[2019-08-19] MEDS ORDERED: metOLazone 5 MG TAB PO ONE (19:00)
[2019-08-19] MEDS ORDERED: ENOXAPARIN 30 MG/0.3 ML SYR (J1650) SC ONE (19:00)
[2019-08-19 20:00] VITALS: BP 126/59
[2019-08-19] MEDS ORDERED: LEVEMIR (INSULIN DETEMIR) 1 UNITS/0.01ML SC SCH (21:00)
[2019-08-19] MEDS ORDERED: SPIRONOLACTONE 12.5MG PER 1/2 TABLET PO SCH (21:00)
[2019-08-19] MEDS: methylPREDNISolone INJ 40 MG/1 ML VIAL (J2920) IV SCH (21:14)
[2019-08-19] MEDS: SIMVASTATIN 10 MG TAB PO SCH (21:14)
[2019-08-19] MEDS: CLOBETASOL PROPIONATE EMOLLIENT 0.05% CR 60 GM TOP SCH (21:19)
[2019-08-20] VITALS: BP_SYST 120; BP_DIAS 74; BP_DIAS 87
[2019-08-20] MEDS: LEVALBUTEROL 1.25 MG/0.5 ML CONCENTRATE NEB NEB SCH ×2 (00:20→04:07)
[2019-08-20] MEDS: IPRATROPIUM 0.5MG/ALBUTEROL 2.5MG INH SOL UD 3ML (DUONEB)(J7620) NEB SCH ×4 (02:00→20:32)
[2019-08-20 04:00] VITALS: BP 135/76
[2019-08-20] MEDS: methylPREDNISolone INJ 40 MG/1 ML VIAL (J2920) IV SCH ×3 (04:37→20:43)
[2019-08-20 05:25] LABS: HEMATOCRIT 36.3 % (42.0-52.0); HEMOGLOBIN 11.6 g/dl (13.5-17.5); MEAN CORPUSCULAR HEMOGLOBIN 30.3 pg (27.0-33.0); MEAN CORPUSCULAR VOLUME 94.8 fl (80.0-96.0); PLATELET COUNT, AUTOMATED 171 10^3/uL (150-450); RED BLOOD COUNT 3.83 10^6/uL (4.30-6.10); WHITE BLOOD COUNT 13.1 10^3/uL (4.0-10.0)
[2019-08-20 05:48] LABS: CALCIUM LEVEL 9.2 MG/DL (8.8-10.2); CREATININE FOR GFR 1.88 MG/DL (0.70-1.30); GLOMERULAR FILTRATION RATE 36.6 (>35); POTASSIUM SERUM 3.8 MEQ/L (3.5-5.1)
[2019-08-20] MEDS ORDERED: LEVALBUTEROL 1.25 MG/0.5 ML CONCENTRATE NEB INH PRN (06:30)
[2019-08-20] MEDS: HumaLOG INSULIN (NovoLOG) PER UNIT SC SCH ×4 (07:30→20:43)
[2019-08-20 08:00] VITALS: BP 100/56
[2019-08-20] MEDS: BUDESONIDE 0.5 MG/2 ML INHALATION SUSPENSION INH SCH ×2 (08:28→20:32)
[2019-08-20] MEDS ORDERED: NS 500 ML IV ONE (09:00)
[2019-08-20] MEDS ORDERED: TORSEMIDE 20 MG TAB PO SCH (09:00)
[2019-08-20] MEDS: CLOBETASOL PROPIONATE EMOLLIENT 0.05% CR 60 GM TOP SCH ×2 (09:06→20:44)
[2019-08-20] MEDS: ASPIRIN 81 MG ENTERIC TAB PO SCH (09:06)
[2019-08-20] MEDS: ENOXAPARIN 30 MG/0.3 ML SYR (J1650) SC SCH (09:06)
[2019-08-20] MEDS: TAMSULOSIN 0.4 MG CAP PO SCH (09:07)
[2019-08-20] MEDS: MULTIVITAMINS/MINERALS THERAP 1 TAB PO SCH (09:07)
[2019-08-20] MEDS: LEVEMIR (INSULIN DETEMIR) 1 UNITS/0.01ML SC SCH ×2 (09:07→20:43)
[2019-08-20] MEDS: FINASTERIDE 5 MG TAB PO SCH (09:07)
[2019-08-20 12:00] VITALS: BP 161/68
--- NOTE | 2019-08-20 14:01 | IPNPDOC ---
Text Note Date of Service The patient was seen on 08/20/19. NOTE SUBJECTIVE: Patient feels a little better today. SOB improving though still continues to have wheezing. PHYSICAL EXAMINATION: VITALS: As below. GENERAL: The patient is awake, alert and oriented to person, place and time, HEENT: Anicteric sclerae. No jaundice. Moist mucous membranes. NECK: No jugular venous distention. No thyromegaly or cervical lymphadenopathy. LUNGS: Diminished, bilateral wheezing and coarse rhonchi. Bilateral velcro crackles at the bases HEART: S1, S2, sinus rhythm. Systolic ejection murmur heard at the left lower sternal border with sustained heave on the right sternal border. ABDOMEN: Obese, soft, nontender, nondistended. EXTREMITIES: No edema bilaterally, dorsalis pedis and posterior tibialis have been noted Labs and Radiology : reviewed Assessment and Plan: 84 year old male with PMH of Dyslipidemia, Hypertension, Diabetes, Chronic obstructive pulmonary disease (COPD) with Chronic respiratory failure with hypoxia on 3 L, Pulmonary fibrosis, Diastolic heart failure, ejection fraction (EF) of 60% to 65%, severe tricuspid regurgitation, mild aortic regurgitation, mild mitral regurgitation, severe pulmonary hypertension, corpulmonale, Obesity, body mass index (BMI) of 30.5, Benign prostatic hypertrophy (BPH), Stage III chronic kidney disease, baseline creatine of 1.3 to 1.4 presented to the [facility] ED with 1 week history of SOB and wheezing did not respond to outpatient steroid treatment. CT angio of chest negative ofr PE, pleural e fussion, pneumonia or pulmonary edema He was admitted for COPD exacerbation. URI due to Respiratory syncytial virus symptomatic treatment END stage COPD with pulmonary fibrosis exacerbation hypoxia with his home oxygen. due to URI Nebs, IV steroids Lactic acidosis resolved due to hypoxia and excessive work of breathing. Severe pulmonary hypertension with corpulmonale will resume diuretics as needed. ALLISON on CKD stage 3 this is probably due to contrast nephropathy vs overdiuresis will hold diuretics today, give gentle hydration. Diastolic CHF not in exacerbation will hold diuretics today will resume as needed. Diabetes uncontrolled due to steroids will increase levemir and continue lispro sliding scale FS AC and HS hypoglycemic protocol. BPH continue home meds Hypertension controlled, contiue home meds except diuretics. Dyslipidemia continue home meds. DVT prophylaxis ordered. VS,Fishbone, I+O VS, Fishbone, I+O Laboratory Tests 08/19/19 13:48 08/20/19 05:08 Vital Signs Date Time Temp Pulse Resp B/P (MAP) Pulse Ox O2 Delivery O2 Flow Rate FiO2 08/20/19 05:30 4.0 94 08/20/19 04:00 97.6 65 20 135/76 (95) 96 Nasal Cannula I&O- Last 24 Hours up to 6 AM 08/20/19 06:00 Intake Total 360 ml Output Total 1175 ml Balance -815 ml DANY WEST MD Aug 20, 2019 06:40
[2019-08-20 16:00] VITALS: BP 138/63
[2019-08-20 20:00] VITALS: BP 131/71
[2019-08-20] MEDS: SIMVASTATIN 10 MG TAB PO SCH (20:43)
[2019-08-21] VITALS: BP 142/68
[2019-08-21] MEDS: IPRATROPIUM 0.5MG/ALBUTEROL 2.5MG INH SOL UD 3ML (DUONEB)(J7620) NEB SCH ×2 (02:00→06:18)
[2019-08-21 04:00] VITALS: BP 139/87
[2019-08-21 05:20] LABS: HEMATOCRIT 35.4 % (42.0-52.0); HEMOGLOBIN 11.5 g/dl (13.5-17.5); MEAN CORPUSCULAR HEMOGLOBIN 30.3 pg (27.0-33.0); MEAN CORPUSCULAR HGB CONC 32.5 g/dl (32.0-36.5); MEAN CORPUSCULAR VOLUME 93.2 fl (80.0-96.0); PLATELET COUNT, AUTOMATED 174 10^3/uL (150-450)
[2019-08-21 05:36] LABS: CALCIUM LEVEL 8.4 MG/DL (8.8-10.2); CREATININE FOR GFR 1.58 MG/DL (0.70-1.30); GLOMERULAR FILTRATION RATE 44.7 (>35); POTASSIUM SERUM 3.7 MEQ/L (3.5-5.1)
[2019-08-21] MEDS: methylPREDNISolone INJ 40 MG/1 ML VIAL (J2920) IV SCH ×3 (05:52→22:02)
[2019-08-21] MEDS: BUDESONIDE 0.5 MG/2 ML INHALATION SUSPENSION INH SCH ×2 (06:18→20:27)
[2019-08-21 07:30] VITALS: BP 124/71
[2019-08-21] MEDS: HumaLOG INSULIN (NovoLOG) PER UNIT SC SCH ×4 (07:57→22:03)
[2019-08-21] MEDS: ENOXAPARIN 30 MG/0.3 ML SYR (J1650) SC SCH (08:40)
[2019-08-21] MEDS: LEVEMIR (INSULIN DETEMIR) 1 UNITS/0.01ML SC SCH ×2 (08:41→22:02)
[2019-08-21] MEDS: FINASTERIDE 5 MG TAB PO SCH (08:41)
[2019-08-21] MEDS: TAMSULOSIN 0.4 MG CAP PO SCH (08:41)
[2019-08-21] MEDS: MULTIVITAMINS/MINERALS THERAP 1 TAB PO SCH (08:41)
[2019-08-21] MEDS: ASPIRIN 81 MG ENTERIC TAB PO SCH (08:41)
[2019-08-21] MEDS: CLOBETASOL PROPIONATE EMOLLIENT 0.05% CR 60 GM TOP SCH ×2 (08:42→22:03)
[2019-08-21] MEDS: ALBUTEROL SULFATE 2.5 MG/0.5 ML INH NEB SOLN NEB SCH ×3 (08:45→20:27)
--- NOTE | 2019-08-21 10:53 | IPNPDOC ---
Text Note Date of Service The patient was seen on 08/21/19. NOTE SUBJECTIVE: Patient feels a little better today. As per nurses last evening he had sun downing with some acute delirium. This am he is at baseline mental status. Had good cough and large amounts of phlegm production. SOB improving. But says he still hears the wheezing and rattling in his chest. No fever or chills. Down to 3 liters of oxygen which is his baseline. PHYSICAL EXAMINATION: VITALS: As below. GENERAL: The patient is awake, alert and oriented to person, place and time, Sitting up in chair in no acute distress. HEENT: Anicteric sclerae. No jaundice. Moist mucous membranes. NECK: No jugular venous distention. No thyromegaly or cervical lymphadenopathy. LUNGS: Diminished, bilateral wheezing and coarse rhonchi. Bilateral coarse crackles at the bases right > left. HEART: S1, S2, sinus rhythm. Systolic ejection murmur heard at the left lower sternal border with sustained heave on the right sternal border. ABDOMEN: Obese, soft, nontender, nondistended. EXTREMITIES: No edema bilaterally, dorsalis pedis and posterior tibialis have been noted Labs and Radiology : reviewed Assessment and Plan: 84 year old male with PMH of Dyslipidemia, Hypertension, Diabetes, Chronic obstructive pulmonary disease (COPD) with Chronic respiratory failure with hypoxia on 3 L, Pulmonary fibrosis, Diastolic heart failure, ejection fraction (EF) of 60% to 65%, severe tricuspid regurgitation, mild aortic regurgitation, mild mitral regurgitation, severe pulmonary hypertension, corpulmonale, Obesity, body mass index (BMI) of 30.5, Benign prostatic hypertrophy (BPH), Stage III chronic kidney disease, baseline creatine of 1.3 to 1.4 presented to [facility] ED with 1 week history of SOB and wheezing did not respond to outpatient steroid treatment. CT angio of chest negative ofr PE, pleural efussion, pneumonia or pulmonary edema He was admitted for COPD exacerbation. URI with hypoxia worse than baseline. due to Respiratory syncytial virus infection. symptomatic treatment continue nebs, chest PT, acapella END stage COPD with pulmonary fibrosis exacerbation hypoxia with his home oxygen. due to URI Nebs, IV steroids, budesonide, Lactic acidosis resolved due to hypoxia and excessive work of breathing. Severe pulmonary hypertension with corpulmonale will resume diuretics as needed. ALLISON on CKD stage 3 this is probably due to contrast nephropathy vs overdiuresis improving. continue to hold torsemide today. Diastolic CHF not in exacerbation will hold diuretics today will resume as needed. Diabetes uncontrolled due to steroids will increase levemir and continue lispro sliding scale FS AC and HS hypoglycemic protocol. BPH continue home meds Hypertension controlled, continue home meds except diuretics. Dyslipidemia continue home meds. DVT prophylaxis ordered. VS,Fishbone, I+O VS, Fishbone, I+O Laboratory Tests 08/21/19 05:04 Vital Signs Date Time Temp Pulse Resp B/P (MAP) Pulse Ox O2 Delivery O2 Flow Rate FiO2 08/21/19 04:00 98.8 80 22 139/87 (104) 85 Nasal Cannula 4.0 08/20/19 05:30 94 I&O- Last 24 Hours up to 6 AM 08/21/19 05:59 Intake Total 1660 ml Output Total 1225 ml Balance 435 ml DANY WEST MD Aug 21, 2019 10:53
[2019-08-21 12:00] VITALS: BP 142/65
[2019-08-21 15:00] VITALS: BP 145/69
[2019-08-21 22:00] VITALS: BP 148/70
[2019-08-21] MEDS: SIMVASTATIN 10 MG TAB PO SCH (22:02)
[2019-08-22] MEDS: ALBUTEROL SULFATE 2.5 MG/0.5 ML INH NEB SOLN NEB SCH ×4 (01:42→20:20)
[2019-08-22] MEDS: methylPREDNISolone INJ 40 MG/1 ML VIAL (J2920) IV SCH ×3 (04:22→21:08)
[2019-08-22 06:00] VITALS: BP 151/72
[2019-08-22 06:47] LABS: HEMATOCRIT 36.3 % (42.0-52.0); HEMOGLOBIN 11.3 g/dl (13.5-17.5); MEAN CORPUSCULAR HGB CONC 31.1 g/dl (32.0-36.5); MEAN CORPUSCULAR VOLUME 96.3 fl (80.0-96.0); PLATELET COUNT, AUTOMATED 177 10^3/uL (150-450); RED BLOOD COUNT 3.77 10^6/uL (4.30-6.10)
[2019-08-22 07:05] LABS: CALCIUM LEVEL 8.6 MG/DL (8.8-10.2); CREATININE FOR GFR 1.45 MG/DL (0.70-1.30); GLOMERULAR FILTRATION RATE 49.4 (>35); POTASSIUM SERUM 4.2 MEQ/L (3.5-5.1)
[2019-08-22] MEDS: LEVEMIR (INSULIN DETEMIR) 1 UNITS/0.01ML SC SCH ×2 (07:49→21:07)
[2019-08-22] MEDS: HumaLOG INSULIN (NovoLOG) PER UNIT SC SCH ×4 (07:49→21:08)
[2019-08-22] MEDS: BUDESONIDE 0.5 MG/2 ML INHALATION SUSPENSION INH SCH ×2 (08:25→20:20)
[2019-08-22 09:59] VITALS: BP 146/72
[2019-08-22] MEDS: FINASTERIDE 5 MG TAB PO SCH (10:29)
[2019-08-22] MEDS: MULTIVITAMINS/MINERALS THERAP 1 TAB PO SCH (10:31)
[2019-08-22] MEDS: TAMSULOSIN 0.4 MG CAP PO SCH (10:32)
[2019-08-22] MEDS: TORSEMIDE 20 MG TAB PO SCH (10:35)
[2019-08-22] MEDS: ASPIRIN 81 MG ENTERIC TAB PO SCH (10:42)
[2019-08-22] MEDS: CLOBETASOL PROPIONATE EMOLLIENT 0.05% CR 60 GM TOP SCH ×2 (11:45→21:10)
[2019-08-22] MEDS: ENOXAPARIN 30 MG/0.3 ML SYR (J1650) SC SCH (11:52)
--- NOTE | 2019-08-22 13:32 | IPNPDOC ---
Text Note Date of Service The patient was seen on 08/22/19. NOTE SUBJECTIVE: Patient feels a little better today. Had good cough and large a marcos of phlegm production. SOB improving. But says he still hears the wheezing and rattling in his chest. No fever or chills. Down to 3 liters of oxygen which is his baseline. PHYSICAL EXAMINATION: VITALS: As below. GENERAL: The patient is awake, alert and oriented to person, place and time, Si tting up in chair in no acute distress. HEENT: Anicteric sclerae. No jaundice. Moist mucous membranes. NECK: No jugular venous distention. No thyromegaly or cervical lymphadenopathy. LUNGS: Diminished, bilateral wheezing and coarse rhonchi. Bilateral coarse crackles at the bases right > left. HEART: S1, S2, sinus rhythm. Systolic ejection murmur heard at the left lower sternal border with sustained heave on the right sternal border. ABDOMEN: Obese, soft, nontender, nondistended. EXTREMITIES: No edema bilaterally, dorsalis pedis and posterior tibialis have been noted Labs and Radiology : reviewed Assessment and Plan: 84 year old male with PMH of Dyslipidemia, Hypertension, Diabetes, Chronic obstructive pulmonary disease (COPD) with Chronic respiratory failure with hypoxia on 3 L, Pulmonary fibrosis, Diastolic heart failure, ejection fraction (EF) of 60% to 65%, severe tricuspid regurgitation, mild aortic regurgitation, mild mitral regurgitation, severe pulmonary hypertension, corpulmonale, Obesity, body mass index (BMI) of 30.5, Benign prostatic hypertrophy (BPH), Stage III chronic kidney disease, baseline creatine of 1.3 to 1.4 presented to [facility] ED with 1 week history of SOB and wheezing did not respond to outpatient steroid treatment. CT angio of chest negative ofr PE, pleural efussion, pneumonia or pulmonary edema He was admitted for COPD exacerbation. URI with hypoxia worse than baseline. due to Respiratory syncytial virus infection. symptomatic treatment continue nebs, chest PT, acapella END stage COPD with pulmonary fibrosis exacerbation hypoxia with his home oxygen. due to URI Nebs, IV steroids, budesonide, Lactic acidosis resolved due to hypoxia and excessive work of breathing. Severe pulmonary hypertension with corpulmonale will resume diuretics as needed. ALLISON on CKD stage 3 this is probably due to contrast nephropathy vs overdiuresis improving. continue to hold torsemide today. Diastolic CHF not in exacerbation will hold diuretics today will resume as needed. Diabetes uncontrolled due to steroids will increase levemir and continue lispro sliding scale FS AC and HS hypoglycemic protocol. BPH continue home meds Hypertension controlled, continue home meds except diuretics. Dyslipidemia continue home meds. DVT prophylaxis ordered. Dispo: home in 24 to 48 hours after PT clearance VS,Fishbone, I+O VS, Fishbone, I+O Laboratory Tests 08/22/19 06:06 Vital Signs Date Time Temp Pulse Resp B/P (MAP) Pulse Ox O2 Delivery O2 Flow Rate FiO2 08/22/19 09:59 146/72 (96) 08/22/19 09:15 97.7 77 20 90 Nasal Cannula 3.0 08/20/19 05:30 94 I&O- Last 24 Hours up to 6 AM 08/22/19 06:00 Intake Total 1650 ml Output Total 1475 ml Balance 175 ml DANY WEST MD Aug 22, 2019 13:32
[2019-08-22] MEDS ORDERED: MIRALAX *UNIT DOSE* 17GM PACKET PO ONE (13:45)
[2019-08-22] MEDS ORDERED: MIRALAX *UNIT DOSE* 17GM PACKET PO PRN (13:45)
[2019-08-22] MEDS ORDERED: BISACODYL 5 MG TAB PO ONE (14:00)
[2019-08-22 14:17] VITALS: BP 137/73
[2019-08-22] MEDS: SENOKOT S TAB PO SCH ×2 (14:20→21:09)
[2019-08-22] MEDS: SIMVASTATIN 10 MG TAB PO SCH (21:09)
[2019-08-22 22:00] VITALS: BP 151/73
[2019-08-23] MEDS: ALBUTEROL SULFATE 2.5 MG/0.5 ML INH NEB SOLN NEB SCH ×2 (02:00→07:22)
[2019-08-23] MEDS: methylPREDNISolone INJ 40 MG/1 ML VIAL (J2920) IV SCH (04:40)
[2019-08-23 06:00] VITALS: BP 152/81
[2019-08-23 06:04] LABS: HEMATOCRIT 37.6 % (42.0-52.0); HEMOGLOBIN 12.1 g/dl (13.5-17.5); MEAN CORPUSCULAR HEMOGLOBIN 30.4 pg (27.0-33.0); MEAN CORPUSCULAR HGB CONC 32.2 g/dl (32.0-36.5); MEAN CORPUSCULAR VOLUME 94.5 fl (80.0-96.0); PLATELET COUNT, AUTOMATED 183 10^3/uL (150-450); RED BLOOD COUNT 3.98 10^6/uL (4.30-6.10); WHITE BLOOD COUNT 12.6 10^3/uL (4.0-10.0)
[2019-08-23 06:33] LABS: CALCIUM LEVEL 8.9 MG/DL (8.8-10.2); CREATININE FOR GFR 1.52 MG/DL (0.70-1.30); GLOMERULAR FILTRATION RATE 46.7 (>35); POTASSIUM SERUM 4.1 MEQ/L (3.5-5.1)
[2019-08-23] MEDS: BUDESONIDE 0.5 MG/2 ML INHALATION SUSPENSION INH SCH (07:22)
[2019-08-23] MEDS: LEVEMIR (INSULIN DETEMIR) 1 UNITS/0.01ML SC SCH (08:20)
[2019-08-23] MEDS: TORSEMIDE 20 MG TAB PO SCH (08:21)
[2019-08-23] MEDS: MULTIVITAMINS/MINERALS THERAP 1 TAB PO SCH (08:21)
[2019-08-23] MEDS: HumaLOG INSULIN (NovoLOG) PER UNIT SC SCH ×2 (08:21→12:13)
[2019-08-23] MEDS: TAMSULOSIN 0.4 MG CAP PO SCH (08:21)
[2019-08-23] MEDS: FINASTERIDE 5 MG TAB PO SCH (08:21)
[2019-08-23] MEDS: ASPIRIN 81 MG ENTERIC TAB PO SCH (08:21)
[2019-08-23] MEDS: SENOKOT S TAB PO SCH (08:21)
[2019-08-23] MEDS: ENOXAPARIN 30 MG/0.3 ML SYR (J1650) SC SCH (08:22)
[2019-08-23] MEDS: CLOBETASOL PROPIONATE EMOLLIENT 0.05% CR 60 GM TOP SCH (08:23)
[2019-08-23] MEDS ORDERED: predniSONE 20 MG TAB PO SCH (09:00)
[2019-08-23] MEDS ORDERED: ALB2.5NEB NEB ×2 (09:05→09:07)
[2019-08-23] MEDS ORDERED: PRED10TA2 PO ×2 (09:05→09:07)
--- NOTE | 2019-09-05 15:28 | DS.PDOC ---
Discharge Summary General Date of Admission Aug 19, 2019 at 15:22 Date of Discharge 08/23/19 Discharge Summary PROCEDURES PERFORMED DURING STAY: [None]. DISCHARGE DIAGNOSES: URI due to Respiratory Syncytial virus infection Hypoxia worse than baseline END stage COPD Pulmonary fibrosis Chronic respiratory failure with hypoxia Severe pulmonary hypertension with Corpulmonale Lacticacidosis ALLISON on CKD 3 SECONDARY DIAGNOSIS: Dyslipidemia, Hypertension, Diabetes, Chronic obstructive pulmonary disease (COPD) with Chronic respiratory failure with hypoxia on 3 L, Pulmonary fibrosis, Diastolic heart failure, ejection fraction (EF) of 60% to 65%, severe tricuspid regurgitation, mild aortic regurgitation, mild mitral regurgitation, severe pulmonary hypertension, corpulmonale, Obesity, body mass index (BMI) of 30.5, Benign prostatic hypertrophy (BPH), Stage III chronic kidney disease, baseline creatine of 1.3 to 1.4 COMPLICATIONS/CHIEF COMPLAINT: Hypoxia. HISTORY OF PRESENT ILLNESS: See history and physical HOSPITAL COURSE: 84 year old male with PMH of Dyslipidemia, Hypertension, Diabetes, Chronic obstructive pulmonary disease (COPD) with Chronic respiratory failure with hypoxia on 3 L, Pulmonary fibrosis, Diastolic heart failure, ejection fraction (EF) of 60% to 65%, severe tricuspid regurgitation, mild aortic regurgitation, mild mitral regurgitation, severe pulmonary hypertension, corpulmonale, Obesity, body mass index (BMI) of 30.5, Benign prostatic hypertrophy (BPH), Stage III chronic kidney disease, baseline creatine of 1.3 to 1.4 presented to the ED with 1 week history of SOB and wheezing did not respond to outpatient steroid treatment. CT angio of chest negative for PE, pleural effusion, pneumonia or pulmonary edema He was admitted for COPD exacerbation. URI with hypoxia due to Respiratory syncytial virus infection. symptomatic treatment continue nebs, chest PT, acapella END stage COPD with pulmonary fibrosis exacerbation hypoxia with his home oxygen. due to URI Nebs, prednisone taper, budesonide, Lactic acidosis resolved due to hypoxia and excessive work of breathing. Severe pulmonary hypertension with corpulmonale ALLISON on CKD stage 3 this is probably due to contrast nephropathy vs overdiuresis improving. resume home diuretics. Diastolic CHF not in exacerbation resume home duretics. Diabetes uncontrolled due to steroids continue home meds. BPH continue home meds Hypertension controlled, continue home meds Dyslipidemia continue home meds. DISCHARGE MEDICATIONS: Please see below. ALLERGIES: Please see below. PHYSICAL EXAMINATION ON DISCHARGE: VITAL SIGNS: Please see below. GENERAL: The patient is awake, alert and oriented to person, place and time, Sitting up in chair in no acute distress. HEENT: Anicteric sclerae. No jaundice. Moist mucous membranes. NECK: No jugular venous distention. No thyromegaly or cervical lymphadenopathy. LUNGS: Diminished, bilateral wheezing and coarse rhonchi. Bilateral coarse crackles at the bases right > left. HEART: S1, S2, sinus rhythm. Systolic ejection murmur heard at the left lower s ternal border with sustained heave on the right sternal border. ABDOMEN: Obese, soft, nontender, nondistended. EXTREMITIES: No edema bilaterally, dorsalis pedis and posterior tibialis have been noted LABORATORY DATA: Please see below. ACTIVITY: [As tolerated]. DIET: As tolerated DISPOSITION: 01 Home, Self-Care. DISCHARGE INSTRUCTIONS: Follow up PMD in 1 week DISCHARGE CONDITION: [Stable]. TIME SPENT ON DISCHARGE: 35 minutes. Vital Signs/I&Os Vital Signs Date Time Temp Pulse Resp B/P (MAP) Pulse Ox O2 Delivery O2 Flow Rate FiO2 08/23/19 08:29 3.0 08/23/19 06:00 98.9 67 22 152/81 (104) 95 Nasal Cannula 08/20/19 05:30 94 I&O- Last 24 Hours up to 6 AM 08/24/19 06:00 Intake Total 1010 ml Output Total 475 ml Balance 535 ml Laboratory Data CBC/BMP Item Value Date Time White Blood Count 12.6 10^3/uL H 08/23/19 0540 Red Blood Count 3.98 10^6/uL L 08/23/19 0540 Hemoglobin 12.1 g/dl L 08/23/19 0540 Hematocrit 37.6 % L 08/23/19 0540 Mean Corpuscular Volume 94.5 fl 08/23/19 0540 Mean Corpuscular Hemoglobin 30.4 pg 08/23/19 0540 Mean Corpuscular Hemoglobin Concent 32.2 g/dl 08/23/19 0540 Red Cell Distribution Width 13.0 % 08/23/19 0540 Platelet Count 183 10^3/uL 08/23/19 0540 Nucleated Red Blood Cells % (auto) 0.0 % 08/23/19 0540 Sodium Level 141 MEQ/L 08/23/19 0540 Potassium Level 4.1 MEQ/L 08/23/19 0540 Carbon Dioxide Level 35 MEQ/L H 08/23/19 0540 Anion Gap 5 MEQ/L L 08/23/19 0540 Chloride Level 101 MEQ/L 08/23/19 0540 Blood Urea Nitrogen 60 MG/DL H 08/23/19 0540 Creatinine 1.52 MG/DL H 08/23/19 0540 Fasting Glucose 188 MG/DL H 08/23/19 0540 Glomerular Filtration Rate 46.7 08/23/19 0540 Calcium Level 8.9 MG/DL 08/23/19 0540 Microbiology Microbiology 08/19/19 Blood Culture - Final, Complete NO GROWTH AFTER 5 DAYS 08/19/19 Blood Culture - Final, Complete NO GROWTH AFTER 5 DAYS 08/19/19 Respiratory Virus Panel (PCR) (MICHELA) - Final, Complete Respiratory Syncytial Virus Discharge Medications Scheduled Albuterol Sulfate (Albuterol Sulfate) 2.5 Mg/0.5 Ml Vial.neb, 2.5 MG NEB TID Aspirin (Aspir 81) 81 Mg Tab, 81 MG PO DAILY, (Reported) TAKES AT NOON Clobetasol Propionate/Emoll (Clobetasol Emollient 0.05% Crm) 0.05% 15GM Cream..g., 1 DOSE TOP BID, (Reported) APPLY TO GROIN Finasteride (Finasteride) 5 Mg Tablet, 5 MG PO DAILY, (Reported) Fluticasone Furoate (Arnuity Ellipta) 200 Mcg/Act Inh, 1 PUFF INH DAILY, (Reported) Metformin HCl (Metformin HCl) 850 Mg Tab, 850 MG PO BID, (Reported) Multivitamins (Thera M Plus Tablet) 1 Each Tablet, 1 TAB PO DAILY, (Reported) Prednisone (Prednisone) 10 Mg Tablet, 10 MG PO TAPER 6 tabs daily x 3days,then 5tabs daily x 3days, then 4tabs x 3 days, then 3tabs x 3days, 2tabs x 3days, then 1tab x 3days. Simvastatin (Zocor) 10 Mg Tab, 10 MG PO QHS, (Reported) Spironolactone (Spironolactone) 25 Mg Tablet, 12.5 MG PO QHS, (Reported) Tamsulosin HCl (Flomax) 0.4 Mg Capsule, 0.4 MG PO DAILY, (Reported) Torsemide (Torsemide) 20 Mg Tablet, 40 MG PO DAILY, (Reported) Scheduled PRN Acetaminophen (Acetaminophen) 500 Mg Tab, 1,000 MG PO Q8H PRN for PAIN, (Reported) Allergies Coded Allergies: No Known Allergies (Verified , 08/10/04) DANY WEST MD Aug 24, 2019 16:27
== END 2019-08-23 12:54 | disposition home health service (06) | DRG 153 ==
LOC: M ED 13:25 → M ED INP 15:22 → M ICU 20:51 → M MSPAV 08-21 14:56
PROVIDERS: ADMIT General Practice; ATTEND Internal Medicine Nephrology
DX: J06.9 Acute upper respiratory infection, unspecified (principal); I50.32 Chronic diastolic (congestive) heart failure; I13.0 Hypertensive heart and chronic kidney disease with heart failure and stage 1 through stage 4 chronic kidney disease, or unspecified chronic kidney disease; J96.11 Chronic respiratory failure with hypoxia; E87.2 Acidosis; N17.9 Acute kidney failure, unspecified; J44.1 Chronic obstructive pulmonary disease with (acute) exacerbation; J84.10 Pulmonary fibrosis, unspecified; B97.4 Respiratory syncytial virus as the cause of diseases classified elsewhere; I08.3 Combined rheumatic disorders of mitral, aortic and tricuspid valves; I27.29 Other secondary pulmonary hypertension; E66.9 Obesity, unspecified; E11.65 Type 2 diabetes mellitus with hyperglycemia; N40.0 Benign prostatic hyperplasia without lower urinary tract symptoms; N18.3 Chronic kidney disease, stage 3 (moderate); E11.22 Type 2 diabetes mellitus with diabetic chronic kidney disease; Z99.81 Dependence on supplemental oxygen; Z68.30 Body mass index [BMI] 30.0-30.9, adult; Z96.652 Presence of left artificial knee joint; Z87.81 Personal history of (healed) traumatic fracture; Z79.82 Long term (current) use of aspirin; Z79.52 Long term (current) use of systemic steroids; Z79.899 Other long term (current) drug therapy; Z79.84 Long term (current) use of oral hypoglycemic drugs

== ENCOUNTER → 2019-09-16 | Outpatient (REF) | payer MEDICARE, OTHER ==
[~2019-09-16] MED LIST changes: +ALB2.5NEB NEB; +CLOB0.0548 TOP; +FINA5TAB2 PO; +FLOM0.4C39 PO; +PRED20TA PO; +SPIR-10 PO; +TORS20TA2 PO; +VITMTA PO
== END ==
LOC: M LAB REF 17:41
PROVIDERS: ATTEND Physician Assistant
DX: R30.0 Dysuria (principal)

== ENCOUNTER 2019-09-21 14:12 | Inpatient (IN) | payer MEDICARE, OTHER ==
[~2019-09-21] VITALS: Ht 172.7 cm; Wt 90.7 kg
[2019-09-21 15:26] LABS: ABG BASE EXCESS 7.3 (-2.0-2.0); ABG HCO3 31.6 MEQ/L (22.0-26.0); ABG O2 SATURATION 93.3 % (95.0-99.0); ABG PARTIAL PRESSURE CO2 43.5 mmHg (35.0-45.0); ABG PARTIAL PRESSURE O2 66.2 mmHg (75.0-100.0); ABG TOTAL CO2 32.9 MEQ/L (23.0-31.0); ABG pH (ARTERIAL) 7.479 UNITS (7.350-7.450)
[2019-09-21] MEDS ORDERED: CEPH500T PO (15:26)
[2019-09-21 16:06] LABS: BASO % 0.4 % (0.0-1.0); EOS % 0.3 % (0.0-3.0); HEMATOCRIT 34.8 % (42.0-52.0); LYMPH # 0.8 10^3/uL (1.5-5.0); LYMPH % 7.4 % (24.0-44.0); MEAN CORPUSCULAR HEMOGLOBIN 30.1 pg (27.0-33.0); MEAN CORPUSCULAR HGB CONC 31.6 g/dl (32.0-36.5); MEAN CORPUSCULAR VOLUME 95.3 fl (80.0-96.0); MONO # 0.8 10^3/uL (0.0-0.8); MONO % 7.9 % (0.0-5.0); NEUTROPHILS # 8.5 10^3/uL (1.5-8.5); NEUTROPHILS % 80.4 % (36.0-66.0); PLATELET COUNT, AUTOMATED 164 10^3/uL (150-450); RED BLOOD COUNT 3.65 10^6/uL (4.30-6.10); WHITE BLOOD COUNT 10.6 10^3/uL (4.0-10.0)
[2019-09-21 16:40] LABS: ALBUMIN 2.5 GM/DL (3.2-5.2); ALT/SGPT 21 U/L (12-78); BILIRUBIN,DIRECT 0.2 MG/DL (0.0-0.2); BILIRUBIN,TOTAL 0.5 MG/DL (0.2-1.0); BLOOD UREA NITROGEN 26 MG/DL (7-18); CALCIUM LEVEL 8.6 MG/DL (8.8-10.2); CARBON DIOXIDE LEVEL 33 MEQ/L (21-32); CHLORIDE LEVEL 95 MEQ/L (98-107); CK-MB VALUE MASS 2.5 NG/ML (<3.6); CPK CREATINE PHOSPHOKINASE 97 U/L (39-308); CREATININE FOR GFR 1.54 MG/DL (0.70-1.30); GLUCOSE, FASTING 159 MG/DL (70-100); MB/CK RELATIVE INDEX 2.58 (< OR =4); POTASSIUM SERUM 4.2 MEQ/L (3.5-5.1); SODIUM LEVEL 139 MEQ/L (136-145); TROPONIN I < 0.02 NG/ML (< 0.10)
--- NOTE | 2019-09-21 17:18 | REPVR ---
PROCEDURE INFORMATION: Exam: CT Chest Without Contrast Exam date and time: 09/21/2019 4:47 PM Age: 84 years old Clinical indication: Abnormal findings; Abnormal radiologic exam of lung or chest; Additional info: New rll opacity on cxr TECHNIQUE: Imaging protocol: Computed tomography of the chest without contrast. 3D rendering: MIP and/or 3D reconstructed images were created by the technologist. Radiation optimization: All CT scans at this facility use at least one of these dose optimization techniques: automated exposure control; mA and/or kV adjustment per patient size (includes targeted exams where dose is matched to clinical indication); or iterative reconstruction. COMPARISON: CT ANGIO CHEST 08/19/2019 3:22 PM FINDINGS: Lungs: Bilateral primarily peripheral interstitial lung changes demonstrated with multiple foci of subpleural bleb and microcyst formation most pronounced at the lung bases, findings consistent with chronic interstitial lung disease. Findings are grossly stable in comparison to prior examination of 08/19/2019. No interval development of a right lower lobe parenchymal opacity demonstrated. Pleural space: Unremarkable. No pneumothorax. No pleural effusion. Heart: There is severe atherosclerotic calcification of the coronary arteries. Pulmonary arteries: There is enlargement of the central pulmonary arteries, findings which can be associated with pulmonary arterial hypertension which should be correlated clinically. Aorta: There is fusiform dilatation of the ascending thoracic aorta which measures 4.3 cm. maximally. There is no saccular component. Findings stable in comparison to 08/19/2019. Lymph nodes: Unremarkable. No enlarged lymph nodes. Bones/joints: Arthropathic changes both glenohumeral joints with subchondral cyst formation. Degenerative changes both sternoclavicular joints. The spine demonstrates moderate degenerative changes. Left posterior intervertebral osteophyte at T10-11 encroaches on the left side of the spinal canal with likely cord impingement and narrowing of the proximal ipsilateral neural foramen. Soft tissues: Unremarkable. IMPRESSION: 1. Parenchymal findings consistent with chronic interstitial lung disease. Findings are grossly stable in comparison to prior examination of 08/19/2019. 2. No interval development of a right lower lobe parenchymal opacity demonstrated. Finding may be related to an enlarged inter lobar pulmonary artery on the right. 3. Left posterior intervertebral osteophyte at T10-11 encroaches on the left side of the spinal canal with likely cord impingement and narrowing of the proximal ipsilateral neural foramen. 4. There is fusiform dilatation of the ascending thoracic aorta which measures 4.3 cm. maximally. There is no saccular component. Findings stable in comparison to 08/19/2019. 5. There is enlargement of the central pulmonary arteries, findings which can be associated with pulmonary arterial hypertension which should be correlated clinically. Electronically signed by: Nba Arzola On 09/21/2019 17:17:52 PM
[2019-09-21 17:20] LABS: NT-PRO BNP 1247 PG/ML (<450)
[2019-09-21] MEDS ORDERED: FUROSEMIDE 40 MG/4 ML VIAL (J1940) IV ONE (17:30)
--- NOTE | 2019-09-21 19:05 | ECGEPIP ---
[facility] - ED Test Date: 2019-09-21 Pat Name: BLADIMIR ARAUJO Department: Room: - Gender: Male Manager Transplant: TC : [id number] Requested By: Reno Warren Order Number: [id number] Reading MD: Wesley Villarreal Measurements Intervals [place] Rate: 90 P: 28 MT: 258 QRS: -6 QRSD: 88 T: 11 QT: 344 QTc: 422 Interpretive Statements SINUS RHYTHM WITH FIRST DEGREE AV BLOCK WITH OCCASIONAL SUPRAVENTRICULAR PREMATURE COMPLEXES LOW QRS VOLTAGE IN PRECORDIAL LEADS Delayed anterior R wave progression Inferior Q waves of uncertain significance Nonspecific ST-T wave abnormalities Similar to tracing done 08-19-19 Electronically Signed on 09-21-2019 19:05:27 EST by Wesley Villarreal
[2019-09-21] MEDS ORDERED: KETO2CR TOP (19:56)
[2019-09-21] MEDS ORDERED: ALBU83IN NEB (19:56)
[2019-09-21] MEDS ORDERED: GLUCAGON FOR INJ 1 MG VIAL (J1610) SC PRN (20:15)
[2019-09-21] MEDS ORDERED: DEXTROSE 50% 50 ML SYRINGE IV PRN (20:15)
[2019-09-21] MEDS ORDERED: GLUCOSE 4 GM CHEW TABLET PO PRN (20:15)
[2019-09-21] MEDS ORDERED: IPRATROPIUM 0.5MG/ALBUTEROL 2.5MG INH SOL UD 3ML (DUONEB)(J7620) NEB PRN (20:15)
[2019-09-21] MEDS: HumaLOG INSULIN (NovoLOG) PER UNIT SC SCH (21:00)
[2019-09-21 21:15] VITALS: BP 119/67
--- NOTE | 2019-09-21 21:24 | HPEPDOC ---
[facility] Medical History & Physical Date of Admission Sep 21, 2019 Date of Service: Sep 21, 2019 Primary Care Physician: DAGOBERTO SHEA M.D. Attending Physician: ATILIO ANNE DO History and Physical CHIEF COMPLAINT: Generalized Weakness/Shortness of breath HISTORY OF PRESENT ILLNESS: Patient is an 84 year old male with a past medical history significant for diastolic congestive heart failure and COPD who presented to the [facility] ER with complaint of generalized weakness and shortness of breath. The patient was accompanied by his son who was present during the exam. The patient states that about one week ago he started to feel more weak. He also noticed a slight increase in his shortness of breath. He stated that his weakness had progressed. The patients son stated that today when the patient was walking he appears weak and started to go down. The son was able to help the patient down to the ground. The patient denies any chest pain or palpitations. He states that he has been compliant with his medications. He denies any changes to his medications. He was prescribed Keflex for an uncomplicated UTI a week ago which he has finished. He states that he gets swelling in his legs every so often however denies any increased swelling. Regarding his shortness of breath he states that he only has a slight shortness of breath and he is close to his baseline. He admits to a cough with clear sputum. He denies congestion, fevers, or chills. He states that he is never able to sleep flat and always sleeps propped up with 1-2 pillows. The patients family became concerned with his increasing level of weakness and brought the patient to the ER for further evaluation Once at the ER the patient was found to be vitally stable. He required 4L NC however has a baseline of 3L. His labs demonstrated a slight lactic acidosis. He has an elevated BNP of 1247 and an elevated creatinine which was essentially at his baseline. The patient received a chest x-ray which possibly demonstrated a right lobe infiltrate however on CT imaging this appears to be vascular congestion and not a new infiltrate. Hospital service was consulted and the patient was admitted for further evaluation and management PAST MEDICAL HISTORY: 1. Chronic diastolic congestive heart failure with Ejection fraction of 60-65% 2. Severe Tricuspid Regurgitation, Mild Aortic regurgitations, Mild mitral regu rgitation 3. Pulmonary Hypertension 4. Obesity with BMI of 31.4 5. Hypertension 6. Chronic Obstructive Pulmonary Disease 7. Dyslipidemia 8. Diabetes Mellitus Type 2 9. Benign Prostatic Hyperplasia 10. Chronic Kidney Disease Stage III PAST SURGICAL HISTORY: 1. Left Hip surgery 2. Left Knee Replacement 3. Right Ankle Fracture with open reduction and internal fixation 4. Angiogram SOCIAL HISTORY: Patient lives at home. He is a former smoker but quit over 30 years ago. He drinks alcohol on occasion and denies any IV or illicit drug use FAMILY HISTORY: Patient has a mother with heart disease. His father had CAD and a myocardial Infarction ALLERGIES: Please see below. REVIEW OF SYSTEMS: CONSTITUTIONAL: Denies fevers, chills, nightsweats, unintentional weightloss or weight gain. HEENT: Denies dysphagia or pain on swallowing. Admits to cough. Denies lymphadenopathy CARDIOVASCULAR: Denies chest pain. Denies palpitations. Admits to difficulty laying flat. Denies increased leg swelling RESPIRATORY: Admits to shortness of breath. Admits to cough with white sputum production GASTROINTESTINAL: Denies abdominal pain, nausea, vomiting, diarrhea, or constipation GENITOURINARY: Admits to recent UTI. Denies any dysuria or increased frequency. Admits to urinary hesitancy and BPH SKIN: Admits to dry skin on legs. Denies any rashes or lesions MUSCULOSKELETAL: Admits to generalized weakness NEUROLOGICAL: Denies any changes in speech. Denies changes in gait but admits to feeling weak on his feet PSYCHIATRIC: Denies depression or anxiety ENDOCRINE: Denies heat intolerance or cold intolerance. Admits to history of diabetes mellitus type 2 HEMATOLOGIC/LYMPHATIC: Denies easy bruising or bleeding HOME MEDICATIONS: Please see below. PHYSICAL EXAMINATION: VITAL SIGNS: Temperature 97.6, pulse 76, respiratory rate 18, blood pressure 108/56, pulse oximetry 92% on 3L GENERAL APPEARANCE: Patient is awake, alert, and oriented. He does not appear to be in any acute distress. He is sitting comfortably on edge of bed accompanied by his son HEENT: Atraumatic normocephalic. Eyes are nonicteric. Trachea is midline. Dentition is fair. No palpable cervical, axillary, or supraclavicular lymphadenopathy CARDIOVASCULAR: Normal S1, S2. Normal Rate. Regular rhythm with ectopic beats. No clicks or rubs. No audible murmurs. No JVD LUNGS: Fine crackles in the bases bilaterally. No wheezes. No rhonchi. Good respiratory effort with symmetric chest expansion. ABDOMEN: Soft, nondistended. Nontender. No rebound tenderness or guarding. Normoactive bowel sounds MUSCULOSKELETAL: 5/5 muscle strength testing in bilateral upper and lower extremities EXTREMITIES: Trace edema. Dry skin on bilateral lower extremities. Full and equal pulses in bilateral upper and lower extremities NEUROLOGICAL: No focal neurological deficits PSYCHIATRIC: Mood and affect appear appropriate for situation LABORATORY DATA: See below. IMAGING: PROCEDURE INFORMATION: Exam: CT Chest Without Contrast Exam date and time: 09/21/2019 4:47 PM Age: 84 years old Clinical indication: Abnormal findings; Abnormal radiologic exam of lung or chest; Additional info: New rll opacity on cxr TECHNIQUE: Imaging protocol: Computed tomography of the chest without contrast. 3D rendering: MIP and/or 3D reconstructed images were created by the technologist. Radiation optimization: All CT scans at this facility use at least one of these dose optimization techniques: automated exposure control; mA and/or kV adjustment per patient size (includes targeted exams where dose is matched to clinical indication); or iterative reconstruction. COMPARISON: CT ANGIO CHEST 08/19/2019 3:22 PM FINDINGS: Lungs: Bilateral primarily peripheral interstitial lung changes demonstrated with multiple foci of subpleural bleb and microcyst formation most pronounced at the lung bases, findings consistent with chronic interstitial lung disease. Findings are grossly stable in comparison to prior examination of 08/19/2019. No interval development of a right lower lobe parenchymal opacity demonstrated. Pleural space: Unremarkable. No pneumothorax. No pleural effusion. Heart: There is severe atherosclerotic calcification of the coronary arteries. Pulmonary arteries: There is enlargement of the central pulmonary arteries, findings which can be associated with pulmonary arterial hypertension which should be correlated clinically. Aorta: There is fusiform dilatation of the ascending thoracic aorta which measures 4.3 cm. maximally. There is no saccular component. Findings stable in comparison to 08/19/2019. Lymph nodes: Unremarkable. No enlarged lymph nodes. Bones/joints: Arthropathic changes both glenohumeral joints with subchondral cyst formation. Degenerative changes both sternoclavicular joints. The spine demonstrates moderate degenerative changes. Left posterior intervertebral osteophyte at T10-11 encroaches on the left side of the spinal canal with likely cord impingement and narrowing of the proximal ipsilateral neural foramen. Soft tissues: Unremarkable. IMPRESSION: 1. Parenchymal findings consistent with chronic interstitial lung disease. Findings are grossly stable in comparison to prior examination of 08/19/2019. 2. No interval development of a right lower lobe parenchymal opacity demonstrated. Finding may be related to an enlarged inter lobar pulmonary artery on the right. 3. Left posterior intervertebral osteophyte at T10-11 encroaches on the left side of the spinal canal with likely cord impingement and narrowing of the proximal ipsilateral neural foramen. 4. There is fusiform dilatation of the ascending thoracic aorta which measures 4.3 cm. maximally. There is no saccular component. Findings stable in comparison to 08/19/2019. 5. There is enlargement of the central pulmonary arteries, findings which can be associated with pulmonary arterial hypertension which should be correlated clinically. Electronically signed by: Nba Arzola On 09/21/2019 17:17:52 PM MICROBIOLOGY: Please see below. ASSESSMENT: Patient is an 84 year old male who presented to the [facility] ER with a complaint of generalized weakness and shortness of breath progressing for 1 weeks duration who was found to have a CHF exacerbation . PLAN: 1. Acute on chronic diastolic congestive heart failure exacerbation -Patient appears volume overloaded on X-ray and CT imaging. Elevation in BNP. -Patient takes 40mg torsemide and 25 of spironolactone at home. Will hold -Patient received 40mg IV lasix in ED. Will continue IV lasix 40mg BID -1800cc fluid restriction and 2g sodium diet -Last echocardiogram was in 2016 demonstrating an EF of 60-65% 2. Generalized Weakness -Likely secondary to his acute on chronic CHF exacerbation. Will correct CHF exacerbation -PT/OT has been ordered 3. History of COPD -Patient has a history of COPD. He normally uses 3L of O2 at home. He is close to his baseline. His shortness of breath is likely related to his CHF. He denies any fevers, chills, or sputum production -Duonebs -Will continue home inhalers 4. Mild Lactic Acidosis -Likely secondary to current CHF exacerbation and overlying chronic COPD 5. Diabetes Mellitus Type 2 -Holding Metformin -Sliding scale coverage 6. History of CAD -Continue Aspirin 81 mg and Simvastatin 10mg 7. Chronic Kidney Disease Stage III -Patient has CKD stage III. Cr is currently at his baseline. Will continue to monitor 8. DVT prophylaxis -Heparin SQ I, Atilio Anne, have independently examined this patient and performed my own physical exam, as well as reviewed the documentation and edited where necessary. I have discussed in detail with the resident / student the findings and plan of treatment as documented by the resident / student and edited their note. I agree with their findings and treatment plan and have edited their documentation. I will continue to follow the patient during this hospital stay. Vital Signs Vital Signs Date Time Temp Pulse Resp B/P (MAP) Pulse Ox O2 Delivery O2 Flow Rate FiO2 09/21/19 18:30 97.6 76 18 108/56 (73) 92 Nasal Cannula 3.0 Laboratory Data Labs 24H Laboratory Tests 2 09/21/19 15:15: Blood Gas Bicarbonate Standard 31.0H, Arterial Blood pH 7.479H, Arterial Blood Partial Pressure CO2 43.5, Arterial Blood Partial Pressure O2 66.2L, Arterial Blood Total CO2 32.9H, Arterial Blood HCO3 31.6H, Arterial Blood Base Excess 7.3H, Arterial Blood Oxygen Saturation 93.3L 09/21/19 15:52: Lactic Acid Level 2.2*H 09/21/19 15:53: Immature Granulocyte % (Auto) 3.6H, Neutrophils (%) (Auto) 80.4H, Lymphocytes (%) (Auto) 7.4L, Monocytes (%) (Auto) 7.9H, Eosinophils (%) (Auto) 0.3, Basophils (%) (Auto) 0.4, Neutrophils # (Auto) 8.5, Lymphocytes # (Auto) 0.8L, Monocytes # (Auto) 0.8, Eosinophils # (Auto) 0.0, Basophils # (Auto) 0.0, Nucl eated Red Blood Cells % (auto) 0.0, Urine Color YELLOW, Urine Appearance CLEAR, Urine pH 6.0, Urine Specific [place] 1.006, Urine Protein NEGATIVE, Urine Glucose (UA) NEGATIVE, Urine Ketones NEGATIVE, Urine Blood NEGATIVE, Urine Nitrite NEGATIVE, Urine Bilirubin NEGATIVE, Urine Urobilinogen 0.2, Urine Leukocyte Esterase NEGATIVE, Urine WBC (Auto) 1, Urine RBC (Auto) 2, Urine Hyaline Casts (Auto) 0, Urine Bacteria (Auto) NEGATIVE, Urine Squamous Epithelial Cells 0, Urine Sperm (Auto) , Anion Gap 11, Glomerular Filtration Rate 46.0, Calcium Level 8.6L, Total Bilirubin 0.5, Direct Bilirubin 0.2, Aspartate Amino Transf (AST/SGOT) 23, Alanine Aminotransferase (ALT/SGPT) 21, Alkaline Phosphatase 80, Total Creatine Kinase 97, Creatine Kinase MB 2.5, Creatine Kinase MB Relative Index 2.58, Troponin I < 0.02, DK-Skq-[id number]-Type Natriuretic Peptide 1247H, Total Protein 6.0L, Albumin 2.5L, Albumin/Globulin Ratio 0.71L 09/21/19 20:11: CBC/BMP Laboratory Tests 09/21/19 15:53 Microbiology Microbiology 09/21/19 Blood Culture, Received Pending 09/21/19 Respiratory Virus Panel (PCR) ([facility]) - Final, Complete 09/21/19 Blood Culture, Received Pending Home Medications Scheduled Aspirin (Aspir 81) 81 Mg Tab, 81 MG PO DAILY TAKES AT NOON Fluticasone Furoate (Arnuity Ellipta) 200 Mcg/Act Inh, 1 PUFF INH DAILY Ketoconazole (Ketoconazole) 15 Gm Cream..g., 1 APLCT TOP BID APPLY TO GROIN AREA Metformin HCl (Metformin HCl) 850 Mg Tab, 850 MG PO BID Multivitamins (Thera M Plus Tablet) 1 Each Tablet, 1 TAB PO DAILY Simvastatin (Zocor) 10 Mg Tab, 10 MG PO QHS Spironolactone (Spironolactone) 25 Mg Tablet, 12.5 MG PO QHS Torsemide (Torsemide) 20 Mg Tablet, 40 MG PO DAILY Scheduled PRN Acetaminophen (Acetaminophen) 500 Mg Tab, 1,000 MG PO Q8H PRN for PAIN Albuterol Sulf (Albuterol Sulfate) 2.5 Mg/3 Ml Vial.neb, 1 VIAL NEB TID PRN for wheezing Allergies Coded Allergies: No Known Allergies (Verified , 08/10/04) A-FIB/CHADSVASC A-FIB History Current/History of A-Fib/PAF?: No BLADIMIR MASON DO Sep 21, 2019 21:24 ATILIO ANNE DO Sep 23, 2019 23:33
[2019-09-21] MEDS: SIMVASTATIN 10 MG TAB PO SCH (22:37)
[2019-09-21] MEDS: HEPARIN SOD (PORCINE) 5000 UNITS/ML VIAL SQ SCH (22:38)
[2019-09-21] MEDS: ASPIRIN 81 MG ENTERIC TAB PO SCH (22:55)
[2019-09-22 06:20] VITALS: BP 112/52
[2019-09-22 06:24] LABS: HEMATOCRIT 31.5 % (42.0-52.0); HEMOGLOBIN 10.3 g/dl (13.5-17.5); MEAN CORPUSCULAR HEMOGLOBIN 30.8 pg (27.0-33.0); MEAN CORPUSCULAR HGB CONC 32.7 g/dl (32.0-36.5); MEAN CORPUSCULAR VOLUME 94.3 fl (80.0-96.0); PLATELET COUNT, AUTOMATED 169 10^3/uL (150-450); RED BLOOD COUNT 3.34 10^6/uL (4.30-6.10); WHITE BLOOD COUNT 9.2 10^3/uL (4.0-10.0)
[2019-09-22 06:45] LABS: CALCIUM LEVEL 8.7 MG/DL (8.8-10.2); CREATININE FOR GFR 1.52 MG/DL (0.70-1.30); GLOMERULAR FILTRATION RATE 46.7 (>35); POTASSIUM SERUM 3.7 MEQ/L (3.5-5.1)
[2019-09-22] MEDS: ALBUTEROL SULFATE 2.5 MG/0.5 ML INH NEB SOLN NEB SCH ×3 (08:14→21:06)
[2019-09-22] MEDS: BUDESONIDE 0.5 MG/2 ML INHALATION SUSPENSION INH SCH ×2 (08:14→21:06)
[2019-09-22] MEDS: MULTIVITAMINS/MINERALS THERAP 1 TAB PO SCH (08:31)
[2019-09-22] MEDS: HEPARIN SOD (PORCINE) 5000 UNITS/ML VIAL SQ SCH ×2 (08:32→21:03)
[2019-09-22] MEDS: TORSEMIDE 20 MG TAB PO SCH (08:32)
[2019-09-22] MEDS: HumaLOG INSULIN (NovoLOG) PER UNIT SC SCH ×4 (08:32→21:00)
[2019-09-22] MEDS ORDERED: FUROSEMIDE 40 MG/4 ML VIAL (J1940) IV SCH (09:00)
--- NOTE | 2019-09-22 11:02 | REP ---
REASON: Dyspnea. COMPARISON: Multiple, the latest 08/19/2019 The technique utilized in obtaining the radiograph has magnified the cardiac silhouette and accentuated the interstitial markings. There is global cardiomegaly accentuated by technique. There are chronic vascular congestion status quo. There is a new opacity in the right lower lobe difficult to evaluate on this limited portable exam. The pleural angles remain sharp. The are chronic changes seen involving the imaged osseous structures status quo. IMPRESSION: New right lower lobe opacity. Subsegmental atelectatic change or early pneumonia can not be ruled out. Electronically Signed by Sunday Patel DO 09/22/2019 11:46 A
--- NOTE | 2019-09-22 11:39 | IPNPDOC ---
Subjective Date Seen The patient was seen on 09/22/19. Subjective Chief Complaint/HPI Does not offer any complaints this morning. feels his breathing is as usual. No cough or phlegm, no fever or chills, wants to go home. however PT has not cleared him yet. They feel he is below his functioning level. Objective Physical Examination General Exam: Positive: Alert, Cooperative, No Acute Distress Eye Exam: Positive: PERRLA, Conjunctiva & lids normal, EOMI; Negative: Sclera icteric ENT Exam: Positive: Atraumatic, Mucous membr. moist/pink, Pharynx Normal Neck Exam: Positive: Supple; Negative: JVD, thyromegaly Chest Exam: Positive: Diminished, Other (bibasal velcro crackes) Heart Exam: Positive: Rate Normal, Regular Rhythm, Normal S1, Normal S2, Murmurs (systlic); Negative: Rubs Abdomen Exam: Positive: Normal bowel sounds, Soft; Negative: Tenderness, Hepatospenomegaly Extremity Exam: Positive: Normal pulses; Negative: Clubbing, Cyanosis, Edema Skin Exam: Positive: Nl turgor and temperature; Negative: Rash, Breakdown Neuro Exam: Positive: Normal Speech, Strength at 5/5 X4 ext, Normal Tone Psych Exam: Positive: Mental status NL, Mood NL, Memory Intact, Oriented x 3 Assessment /Plan Assessment 84 year old male with PMH of Dyslipidemia, Hypertension, Diabetes, Chronic obstructive pulmonary disease (COPD) with Chronic respiratory failure with hypoxia on 3 L, Pulmonary fibrosis, Diastolic heart failure, ejection fraction (EF) of 60% to 65%, severe tricuspid regurgitation, mild aortic regurgitation, mild mitral regurgitation, severe pulmonary hypertension, corpulmonale, Obesity, body mass index (BMI) of 30.5, Benign prostatic hypertrophy (BPH), Stage III chronic kidney disease, baseline creatinine of 1.3 to 1.4 presented to the ED for generalized weakness and SOB. The patient's son stated that today when the patient was walking he appears weak and started to go down. The son was able to help the patient down to the ground. He was prescribed Keflex for an uncomplicated UTI a week ago which he has finished. The patients family became concerned with his increasing level of weakness and brought the patient to the ER for further evaluation. It was felt that he may have CHF exacerbation. Generalized weakness due to general physical deconditioning. May be increased by recent infection a week ago with use of antibiotics with mild CHF exacerbation. PT evaluation Acute on chronic diastolic congestive heart failure exacerbation Now resolved. will restart home diuretics. 1800cc fluid restriction and 2g sodium diet Last echocardiogram was in 2017 demonstrating an EF of 60-65% END stage COPD with pulmonary fibrosis with chronic respiratory failure with hypoxia. continue nebs, budesonide and albuterol. Diabetes Mellitus Type 2 Holding Metformin Sliding scale coverage FS ac and HS hypoglycemic protocol History of CAD Continue Aspirin 81 mg and Simvastatin 10mg Severe pulmonary hypertension with corpulmonale will resume diuretics at home dosage CKD stage 3 creatinine at baseline Diabetes FS AC and HS hypoglycemic protocol. BPH continue home meds Hypertension controlled, continue home meds Dyslipidemia continue home meds. Plan/VTE VTE Prophylaxis Ordered?: Yes VS, I&O, 24H, Fishbone Vital Signs/I&O Vital Signs Date Time Temp Pulse Resp B/P (MAP) Pulse Ox O2 Delivery O2 Flow Rate FiO2 09/22/19 09:00 3.0 09/22/19 08:19 Nasal Cannula 09/22/19 06:20 98.2 70 18 112/52 (72) 88 I&O- Last 24 Hours up to 6 AM 09/22/19 05:59 Intake Total 775 ml Output Total 1000 ml Balance -225 ml Laboratory Data 24H LABS Laboratory Tests 2 09/21/19 15:15: Blood Gas Bicarbonate Standard 31.0H, Arterial Blood pH 7.479H, Arterial Blood Partial Pressure CO2 43.5, Arterial Blood Partial Pressure O2 66.2L, Arterial Blood Total CO2 32.9H, Arterial Blood HCO3 31.6H, Arterial Blood Base Excess 7.3H, Arterial Blood Oxygen Saturation 93.3L 09/21/19 15:52: Lactic Acid Level 2.2*H 09/21/19 15:53: Immature Granulocyte % (Auto) 3.6H, Neutrophils (%) (Auto) 80.4H, Lymphocytes (%) (Auto) 7.4L, Monocytes (%) (Auto) 7.9H, Eosinophils (%) (Auto) 0.3, Basophils (%) (Auto) 0.4, Neutrophils # (Auto) 8.5, Lymphocytes # (Auto) 0.8L, Monocytes # (Auto) 0.8, Eosinophils # (Auto) 0.0, Basophils # (Auto) 0.0, Nucleated Red Blood Cells % (auto) 0.0, Urine Color YELLOW, Urine Appearance CLEAR, Urine pH 6.0, Urine Specific [place] 1.006, Urine Protein NEGATIVE, Urine Glucose (UA) NEGATIVE, Urine Ketones NEGATIVE, Urine Blood NEGATIVE, Urine Nitrite NEGATIVE, Urine Bilirubin NEGATIVE, Urine Urobilinogen 0.2, Urine Leukocyte Esterase NEGATIVE, Urine WBC (Auto) 1, Urine RBC (Auto) 2, Urine Hyaline Casts (Auto) 0, Urine Bacteria (Auto) NEGATIVE, Urine Squamous Epithelial Cells 0, Urine Sperm (Auto) , Anion Gap 11, Glomerular Filtration Rate 46.0, Calcium Level 8.6L, Total Bilirubin 0.5, Direct Bilirubin 0.2, Aspartate Amino Transf (AST/SGOT) 23, Alanine Aminotransferase (ALT/SGPT) 21, Alkaline Phosphatase 80, Total Creatine Kinase 97, Creatine Kinase MB 2.5, Creatine Kinase MB Relative Index 2.58, Troponin I < 0.02, EA-[id number]-[id number]-Type Natriuretic Peptide 1247H, Total Protein 6.0L, Albumin 2.5L, Albumin/Globulin Ratio 0.71L 09/21/19 20:11: Lactic Acid Followup at 4 Hours 1.6 09/21/19 21:32: Bedside Glucose (Misc Panel) 117H 09/22/19 05:31: Nucleated Red Blood Cells % (auto) 0.0, Anion Gap 9, Glomerular Filtration Rate 46.7, Calcium Level 8.7L 09/22/19 06:24: Bedside Glucose (Misc Panel) 128H CBC/BMP Laboratory Tests 09/21/19 15:53 09/22/19 05:31 Microbiology Microbiology 09/21/19 Blood Culture, Received Pending 09/21/19 Respiratory Virus Panel (PCR) ([facility]) - Final, Complete 09/21/19 Blood Culture, Received Pending DANY WEST MD Sep 22, 2019 11:39
[2019-09-22] MEDS: ASPIRIN 81 MG ENTERIC TAB PO SCH (12:43)
[2019-09-22 14:00] VITALS: BP 146/81
[2019-09-22] MEDS: SIMVASTATIN 10 MG TAB PO SCH (21:03)
[2019-09-22] MEDS: SPIRONOLACTONE 12.5MG PER 1/2 TABLET PO SCH (21:04)
[2019-09-22 21:06] VITALS: O2SAT 97
[2019-09-23 06:54] LABS: HEMATOCRIT 32.3 % (42.0-52.0); HEMOGLOBIN 10.1 g/dl (13.5-17.5); MEAN CORPUSCULAR HGB CONC 31.3 g/dl (32.0-36.5); MEAN CORPUSCULAR VOLUME 95.8 fl (80.0-96.0); PLATELET COUNT, AUTOMATED 176 10^3/uL (150-450); RED BLOOD COUNT 3.37 10^6/uL (4.30-6.10); WHITE BLOOD COUNT 8.4 10^3/uL (4.0-10.0)
[2019-09-23 07:21] LABS: CALCIUM LEVEL 8.7 MG/DL (8.8-10.2); CREATININE FOR GFR 1.46 MG/DL (0.70-1.30); POTASSIUM SERUM 3.3 MEQ/L (3.5-5.1)
[2019-09-23 08:13] VITALS: BP 129/73
[2019-09-23] MEDS: TORSEMIDE 20 MG TAB PO SCH (08:15)
[2019-09-23] MEDS: MULTIVITAMINS/MINERALS THERAP 1 TAB PO SCH (08:15)
[2019-09-23] MEDS: HEPARIN SOD (PORCINE) 5000 UNITS/ML VIAL SQ SCH ×2 (08:15→22:26)
[2019-09-23] MEDS: BUDESONIDE 0.5 MG/2 ML INHALATION SUSPENSION INH SCH ×2 (08:28→21:51)
[2019-09-23] MEDS: ALBUTEROL SULFATE 2.5 MG/0.5 ML INH NEB SOLN NEB SCH ×2 (08:28→14:00)
--- NOTE | 2019-09-23 08:34 | IPNPDOC ---
Subjective Date Seen The patient was seen on 09/23/19. Subjective Chief Complaint/HPI Patient was having confusion at night. he was also more hypoxic and at one point his oxygen saturation was down to 70s needing higher oxygen. Better when he was up in the chair. However minimal exertion makes him hypoxic to 70s and needs time to recover. Family is also concerned that he has been coughing a lot during eating and drinking. I did note that he was clearing his throat and coughing a little after drinking water. Will get a swallow eval. Objective Physical Examination General Exam: Positive: Alert, Cooperative, No Acute Distress Eye Exam: Positive: PERRLA, Conjunctiva & lids normal, EOMI; Negative: Sclera icteric ENT Exam: Positive: Atraumatic, Mucous membr. moist/pink, Pharynx Normal Neck Exam: Positive: Supple; Negative: JVD, thyromegaly Chest Exam: Positive: Diminished, Other (bibasal velcro crackes extending up to the mid back. ) Heart Exam: Positive: Rate Normal, Regular Rhythm, Normal S1, Normal S2, Murmurs (systlic); Negative: Rubs Abdomen Exam: Positive: Normal bowel sounds, Soft; Negative: Tenderness, Hepatospenomegaly Extremity Exam: Positive: Edema (bilateral trace edema. ), Normal pulses; Negative: Clubbing, Cyanosis Skin Exam: Positive: Nl turgor and temperature, Other skin issue (chronic stasis changes inteh skin of both legs); Negative: Rash, Breakdown Neuro Exam: Positive: Normal Speech, Strength at 5/5 X4 ext, Normal Tone Psych Exam: Positive: Mental status NL, Mood NL, Memory Intact, Oriented x 3 Assessment /Plan Assessment 84 year old male with PMH of Dyslipidemia, Hypertension, Diabetes, Chronic obstructive pulmonary disease (COPD) with Chronic respiratory failure with h ypoxia on 3 L, Pulmonary fibrosis, Diastolic heart failure, ejection fraction (EF) of 60% to 65%, severe tricuspid regurgitation, mild aortic regurgitation, mild mitral regurgitation, severe pulmonary hypertension, corpulmonale, Obesity, body mass index (BMI) of 30.5, Benign prostatic hypertrophy (BPH), Stage III chronic kidney disease, baseline creatinine of 1.3 to 1.4 presented to the ED for generalized weakness and SOB. The patient's son stated that today when the patient was walking he appears weak and started to go down. The son was able to help the patient down to the ground. He was prescribed Keflex for an uncomplicated UTI a week ago which he has finished. The patients family became concerned with his increasing level of weakness and brought the patient to the ER for further evaluation. It was felt that he may have CHF exacerbation. Generalized weakness due to general physical deconditioning. May be increased by recent infection a week ago with use of antibiotics with mild CHF exacerbation. PT evaluation Acute delirium/ acute encephalopathy confusion at night. could be sun downing and acute delirium from [facility] hospitalization Vs it could be due to hypoxia. he was more hypoxic at night. Acute on chronic diastolic congestive heart failure exacerbation Now resolved. will restart home diuretics. 1800cc fluid restriction and 2g sodium diet Last echocardiogram was in 2017 demonstrating an EF of 60-65% END stage COPD with pulmonary fibrosis with chronic respiratory failure with hypoxia. continue nebs, budesonide and albuterol. Pateint desaturates with minimal exertion to 70s and takes 10 to 15 minutes to recover. Diabetes Mellitus Type 2 Holding Metformin Sliding scale coverage FS ac and HS hypoglycemic protocol History of CAD Continue Aspirin 81 mg and Simvastatin 10mg Severe pulmonary hypertension with corpulmonale will resume diuretics at home dosage CKD stage 3 creatinine at baseline Diabetes FS AC and HS hypoglycemic protocol. BPH continue home meds Hypertension controlled, continue home meds Dyslipidemia continue home meds. ? dysphagia will get a swallow eval. Plan/VTE VTE Prophylaxis Ordered?: Yes VS, I&O, 24H, Fishbone Vital Signs/I&O Vital Signs Date Time Temp Pulse Resp B/P (MAP) Pulse Ox O2 Delivery O2 Flow Rate FiO2 09/23/19 08:13 76 129/73 (91) 09/23/19 05:33 4.0 09/22/19 21:18 20 09/22/19 21:06 97 Nasal Cannula 32 09/22/19 14:00 98.3 I&O- Last 24 Hours up to 6 AM 09/23/19 05:59 Intake Total 1620 ml Output Total 800 ml Balance 820 ml Laboratory Data 24H LABS Laboratory Tests 2 09/22/19 11:29: Bedside Glucose (Misc Panel) 292H 09/22/19 16:29: Bedside Glucose (Misc Panel) 100 09/22/19 20:54: Bedside Glucose (Misc Panel) 223H 09/23/19 06:00: Bedside Glucose (Misc Panel) 164H 09/23/19 06:31: Nucleated Red Blood Cells % (auto) 0.0, Anion Gap 8, Glomerular Filtration Rate 49.0, Calcium Level 8.7L CBC/BMP Laboratory Tests 09/23/19 06:31 Microbiology Microbiology 09/21/19 Blood Culture - Preliminary, Resulted No growth after 24 hours . All specim... 09/21/19 Respiratory Virus Panel (PCR) ([facility]) - Final, Complete 09/21/19 Blood Culture - Preliminary, Resulted No growth after 24 hours . All specim... DANY WEST MD Sep 23, 2019 08:34
[2019-09-23] MEDS: HumaLOG INSULIN (NovoLOG) PER UNIT SC SCH ×4 (09:08→21:00)
[2019-09-23] MEDS: ASPIRIN 81 MG ENTERIC TAB PO SCH (12:35)
[2019-09-23 14:00] VITALS: BP 132/73
[2019-09-23] MEDS: SPIRONOLACTONE 12.5MG PER 1/2 TABLET PO SCH (21:00)
[2019-09-23 22:00] VITALS: BP 123/65
[2019-09-23] MEDS: SIMVASTATIN 10 MG TAB PO SCH (22:26)
[2019-09-23 23:35] VITALS: O2SAT 95
[2019-09-24] VITALS (9 sets, daily range): BP systolic 108–156; BP diastolic 54–72; O2SAT 88–97
[2019-09-24] MEDS: ALBUTEROL SULFATE 2.5 MG/0.5 ML INH NEB SOLN NEB SCH ×5 (00:03→20:35)
[2019-09-24] MEDS ORDERED: FUROSEMIDE 20 MG/2 ML VIAL (J1940) IV ONE ×3 (00:30→18:00)
[2019-09-24 06:57] LABS: HEMATOCRIT 30.6 % (42.0-52.0); HEMOGLOBIN 9.8 g/dl (13.5-17.5); MEAN CORPUSCULAR HEMOGLOBIN 30.2 pg (27.0-33.0); MEAN CORPUSCULAR VOLUME 94.4 fl (80.0-96.0); PLATELET COUNT, AUTOMATED 192 10^3/uL (150-450); RED BLOOD COUNT 3.24 10^6/uL (4.30-6.10); WHITE BLOOD COUNT 8.6 10^3/uL (4.0-10.0)
[2019-09-24 07:27] LABS: CALCIUM LEVEL 8.1 MG/DL (8.8-10.2); CREATININE FOR GFR 1.36 MG/DL (0.70-1.30); GLOMERULAR FILTRATION RATE 53.1 (>35); POTASSIUM SERUM 3.3 MEQ/L (3.5-5.1)
[2019-09-24] MEDS: HumaLOG INSULIN (NovoLOG) PER UNIT SC SCH ×4 (07:45→21:00)
[2019-09-24] MEDS: TIOTROPIUM INHALER/CAPSULE (SPIRIVA) INH SCH (08:00)
[2019-09-24] MEDS ORDERED: POTASSIUM CHLORIDE 10 MEQ SR TABLET PO ONE (08:00)
[2019-09-24] MEDS: BUDESONIDE 0.5 MG/2 ML INHALATION SUSPENSION INH SCH ×2 (08:00→20:35)
[2019-09-24] MEDS ORDERED: IPRATROPIUM 0.5MG/ALBUTEROL 2.5MG INH SOL UD 3ML (DUONEB)(J7620) NEB PRN (08:00)
--- NOTE | 2019-09-24 08:05 | REP ---
Clinical: Shortness of breath. Comparison: 09/21/2019. Findings: Cardiomegaly along with chronic interstitial changes are again noted. Superimposed interstitial and alveolar opacities as well as possible layering pleural effusions are suspected. No pneumothorax. Skeletal structures intact. Impression: Findings most compatible with CHF/pulmonary edema. Differential diagnosis includes multifocal pneumonia. Electronically Signed by Iván Henao MD 09/24/2019 07:56 A
[2019-09-24] MEDS: TORSEMIDE 20 MG TAB PO SCH (09:10)
[2019-09-24] MEDS: MULTIVITAMINS/MINERALS THERAP 1 TAB PO SCH (09:10)
[2019-09-24] MEDS: HEPARIN SOD (PORCINE) 5000 UNITS/ML VIAL SQ SCH ×2 (09:10→21:36)
--- NOTE | 2019-09-24 12:36 | IPNPDOC ---
Subjective Date Seen The patient was seen on 09/24/19. Subjective Chief Complaint/HPI Again had confusion and severe desaturations at night requiring 15 liters of oxygen . CXR suggestive of CHF. To me it all looks chronic. Did receive 2 doses of lasix with improvement with oxygenation so he probably has some fluid overload component. He may be having episodes of aspirations also at night. Objective Physical Examination General Exam: Positive: Alert, Cooperative, No Acute Distress Eye Exam: Positive: PERRLA, Conjunctiva & lids normal, EOMI; Negative: Sclera icteric ENT Exam: Positive: Atraumatic, Mucous membr. moist/pink, Pharynx Normal Neck Exam: Positive: Supple; Negative: JVD, thyromegaly Chest Exam: Positive: Diminished, Other (bibasal velcro crackes extending up to the mid back. ) Heart Exam: Positive: Rate Normal, Regular Rhythm, Normal S1, Normal S2, M urmurs (systlic); Negative: Rubs Abdomen Exam: Positive: Normal bowel sounds, Soft; Negative: Tenderness, Hepatospenomegaly Extremity Exam: Positive: Edema (bilateral trace edema. ), Normal pulses; Negative: Clubbing, Cyanosis Skin Exam: Positive: Nl turgor and temperature, Other skin issue (chronic stasis changes inteh skin of both legs); Negative: Rash, Breakdown Neuro Exam: Positive: Normal Speech, Strength at 5/5 X4 ext, Normal Tone Psych Exam: Positive: Mental status NL, Mood NL, Memory Intact, Oriented x 3 Assessment /Plan Assessment 84 year old male with PMH of Dyslipidemia, Hypertension, Diabetes, Chronic obstructive pulmonary disease (COPD) with Chronic respiratory failure with hypoxia on 3 L, Pulmonary fibrosis, Diastolic heart failure, ejection fraction (EF) of 60% to 65%, severe tricuspid regurgitation, mild aortic regurgitation, mild mitral regurgitation, severe pulmonary hypertension, corpulmonale, Obesity, body mass index (BMI) of 30.5, Benign prostatic hypertrophy (BPH), Stage III chronic kidney disease, baseline creatinine of 1.3 to 1.4 presented to the ED for generalized weakness and SOB. The patient's son stated that today when the patient was walking he appears weak and started to go down. The son was able to help the patient down to the ground. He was prescribed Keflex for an uncomplicated UTI a week ago which he has finished. The patients family became concerned with his increasing level of weakness and brought the patient to the ER for further evaluation. It was felt that he may have CHF exacerbation. Episodes of Hypoxia ? CHF exacerbations vs aspirations. patient does not appear to be fluid overloaded will ask Nursing to make sure he sleeps with head end raised. Acute on chronic diastolic congestive heart failure exacerbation mostly at night having severe desaturations. On home diuretics. 1800cc fluid restriction and 2g sodium diet Last echocardiogram was in 2017 demonstrating an EF of 60-65% Did recieve lasix agin last night has poor intake and not in positive balance at this time. clinically he does not look fluid overloaded. Has trace edema probably from corpulmonale. Generalized weakness due to general physical deconditioning. May be increased by recent infection a week ago with use of antibiotics with mild CHF exacerbation. PT evaluation Acute delirium/ acute encephalopathy confusion at night. could be sun downing and acute delirium from [facility] hospitalization Vs it could be due to hypoxia. he was more hypoxic at night. END stage COPD with pulmonary fibrosis with chronic respiratory failure with hypoxia. continue nebs, budesonide and albuterol. Pateint desaturates with minimal exertion to 70s and takes 10 to 15 minutes to recover. Diabetes Mellitus Type 2 Holding Metformin Sliding scale coverage FS ac and HS hypoglycemic protocol History of CAD Continue Aspirin 81 mg and Simvastatin 10mg Severe pulmonary hypertension with corpulmonale will resume diuretics at home dosage CKD stage 3 creatinine at baseline Diabetes FS AC and HS hypoglycemic protocol. BPH continue home meds Hypertension with episodes of hypotension to low normal BP On diuretics only will continue. Dyslipidemia continue home meds. Dysphagia Had swallow eval ST is following. Code: discussed with SON and went over the [employer] form he is going to talk over with his sister and patient and fill out the form this afternoon. He did say the patient mentioned in the ED that he wanted to be DNR but he is going to confirm with the patient again. Plan/VTE VTE Prophylaxis Ordered?: Yes VS, I&O, 24H, Fishbone Vital Signs/I&O Vital Signs Date Time Temp Pulse Resp B/P (MAP) Pulse Ox O2 Delivery O2 Flow Rate FiO2 09/24/19 09:08 70 140/66 (90) 09/24/19 06:00 97.9 22 99 09/24/19 02:00 Nasal Cannula 15.0 09/22/19 21:06 32 I&O- Last 24 Hours up to 6 AM 09/24/19 06:00 Intake Total 1080 ml Output Total 800 ml Balance 280 ml Laboratory Data 24H LABS Laboratory Tests 2 09/23/19 16:24: Bedside Glucose (Misc Panel) 116H 09/23/19 20:53: Bedside Glucose (Misc Panel) 159H 09/24/19 06:01: Nucleated Red Blood Cells % (auto) 0.0, Anion Gap 9, Glomerular Filtration Rate 53.1, Calcium Level 8.1L CBC/BMP Laboratory Tests 09/24/19 06:01 Microbiology Microbiology 09/21/19 Blood Culture - Preliminary, Resulted No Growth after 48 hours. All Specime... 09/21/19 Respiratory Virus Panel (PCR) (MICHELA) - Final, Complete 09/21/19 Blood Culture - Preliminary, Resulted No Growth after 48 hours. All Specime... DANY WEST MD Sep 24, 2019 12:36
[2019-09-24] MEDS: ASPIRIN 81 MG ENTERIC TAB PO SCH (12:50)
[2019-09-24] MEDS: SPIRONOLACTONE 12.5MG PER 1/2 TABLET PO SCH (21:37)
[2019-09-24] MEDS: SIMVASTATIN 10 MG TAB PO SCH (21:38)
[2019-09-25] MEDS: ALBUTEROL SULFATE 2.5 MG/0.5 ML INH NEB SOLN NEB SCH ×6 (00:43→20:55)
[2019-09-25 06:00] VITALS: BP 127/59
[2019-09-25 06:09] LABS: HEMATOCRIT 32.5 % (42.0-52.0); HEMOGLOBIN 9.9 g/dl (13.5-17.5); MEAN CORPUSCULAR HEMOGLOBIN 29.5 pg (27.0-33.0); MEAN CORPUSCULAR HGB CONC 30.5 g/dl (32.0-36.5); MEAN CORPUSCULAR VOLUME 96.7 fl (80.0-96.0); PLATELET COUNT, AUTOMATED 213 10^3/uL (150-450); RED BLOOD COUNT 3.36 10^6/uL (4.30-6.10); WHITE BLOOD COUNT 8.5 10^3/uL (4.0-10.0)
[2019-09-25 06:23] LABS: CALCIUM LEVEL 8.7 MG/DL (8.8-10.2); CREATININE FOR GFR 1.39 MG/DL (0.70-1.30); GLOMERULAR FILTRATION RATE 51.8 (>35); POTASSIUM SERUM 3.5 MEQ/L (3.5-5.1)
[2019-09-25] MEDS: BUDESONIDE 0.5 MG/2 ML INHALATION SUSPENSION INH SCH ×2 (08:31→20:55)
[2019-09-25] MEDS ORDERED: FUROSEMIDE 40 MG/4 ML VIAL (J1940) IV SCH (09:00)
[2019-09-25] MEDS: MULTIVITAMINS/MINERALS THERAP 1 TAB PO SCH (09:34)
[2019-09-25] MEDS: HEPARIN SOD (PORCINE) 5000 UNITS/ML VIAL SQ SCH ×2 (09:37→21:43)
[2019-09-25] MEDS: FUROSEMIDE 40 MG/4 ML VIAL (J1940) IV SCH ×2 (09:37→17:29)
[2019-09-25] MEDS: HumaLOG INSULIN (NovoLOG) PER UNIT SC SCH ×4 (09:38→21:44)
--- NOTE | 2019-09-25 10:06 | IPNPDOC ---
Subjective Date Seen The patient was seen on 09/25/19. Subjective Chief Complaint/HPI Looks almost at baseline this morning sitting up in chair in no distress though still on 8 L high flow oxygen. Denies any complaints, alert and oriented. Greeted me by name. Said last night was good though he was confused as per the nurses. Pateint says he always gets confused at night even at home. Haivng good urine output. Objective Physical Examination General Exam: Positive: Alert, Cooperative, No Acute Distress Eye Exam: Positive: PERRLA, Conjunctiva & lids normal, EOMI; Negative: Sclera icteric ENT Exam: Positive: Atraumatic, Mucous membr. moist/pink, Pharynx Normal Neck Exam: Positive: Supple; Negative: JVD, thyromegaly Chest Exam: Positive: Diminished, Other (bilateral velcro crackles extending up to the mid back unchanged due to fibrosis. ) Heart Exam: Positive: Rate Normal, Regular Rhythm, Normal S1, Normal S2, Murmurs (systlic); Negative: Rubs Abdomen Exam: Positive: Normal bowel sounds, Soft; Negative: Tenderness, Hepatospenomegaly Extremity Exam: Negative: Clubbing, Cyanosis, Edema Skin Exam: Positive: Nl turgor and temperature, Other skin issue (chronic stasis changes inteh skin of both legs); Negative: Rash, Breakdown Neuro Exam: Positive: Normal Speech, Strength at 5/5 X4 ext, Normal Tone Psych Exam: Positive: Mental status NL, Mood NL, Memory Intact, Oriented x 3 Assessment /Plan Assessment 84 year old male with PMH of Dyslipidemia, Hypertension, Diabetes, Chronic obstructive pulmonary disease (COPD) with Chronic respiratory failure with hypoxia on 3 L, Pulmonary fibrosis, Diastolic heart failure, ejection fraction (EF) of 60% to 65%, severe tricuspid regurgitation, mild aortic regurgitation, mild mitral regurgitation, severe pulmonary hypertension, corpulmonale, Obesity, body mass index (BMI) of 30.5, Benign prostatic hypertrophy (BPH), Stage III chronic kidney disease, baseline creatinine of 1.3 to 1.4 , h/o Afib presented to the ED for generalized weakness and SOB. The patient's son stated that today when the patient was walking he appears weak and started to go down. The son was able to help the patient down to the ground. He was prescribed Keflex for an uncomplicated UTI a week ago which he has finished. The patients family became concerned with his increasing level of weakness and brought the patient to the ER for further evaluation. It was felt that he may have CHF exacerbation. Acute on chronic hypoxic respiratory failure often requiring 10 to 15 liters of oxygen to maintain oxygen saturations. ? CHF exacerbations vs aspirations. patient does not appear to be fluid overloaded will ask Nursing to make sure he sleeps with head end raised. Acute on chronic diastolic congestive heart failure exacerbation and acute on chronic right heart failure. mostly at night having severe desaturations often requiring 10 to 15 liters of oxygen. better during the day. Last echocardiogram was in 2017 demonstrating an EF of 60-65% Severe pulmonary hypertension 65 to 75 . severe TR. A fib so could not determime diastolic function. Will get a new echo 1500cc fluid restriction and 2g sodium diet was ot following fluid restriction at hospital. Continue lasix bid. clinically he does not look fluid overloaded. Has trace edema probably from corpulmonale. Acute delirium/ acute encephalopathy confusion at night. Ben says this am that he gets confused at night in home too. could be sun downing and acute delirium from the hospitalization Vs it could be due to hypoxia. he was more hypoxic at night. END stage COPD with pulmonary fibrosis with chronic respiratory failure with hypoxia. continue nebs, budesonide and albuterol. Patient desaturates with minimal exertion to 70s and takes 10 to 15 minutes to recover. Severe pulmonary hypertension with corpulmonale on diuretics Diabetes Mellitus Type 2 Holding Metformin Sliding scale coverage FS ac and HS hypoglycemic protocol History of CAD Continue Aspirin 81 mg and Simvastatin 10mg CKD stage 3 creatinine at baseline monitor to avaoid overdiuresis. BPH continue home meds Hypertension with episodes of hypotension to low normal BP On diuretics only will continue. H/o Afib seen in echo of 2017 now in sinus rhythm this admission not on any anticoagulation. Dyslipidemia continue home meds. Dysphagia Had swallow eval ST is following. Generalized weakness due to general physical deconditioning. May be increased by recent infection a week ago with use of antibiotics with mild CHF exacerbation. PT evaluation Code: Discussed with patient this morning says he wants to be DNR. When asked about ventilator and intubation he said no to Tube down the throat and no breathing machine. Plan/VTE VTE Prophylaxis Ordered?: Yes VS, I&O, 24H, Fishbone Vital Signs/I&O Vital Signs Date Time Temp Pulse Resp B/P (MAP) Pulse Ox O2 Delivery O2 Flow Rate FiO2 09/25/19 06:00 98.4 53 20 127/59 (81) 90 High Flow Cannula 10.0 09/22/19 21:06 32 I&O- Last 24 Hours up to 6 AM 09/25/19 06:00 Intake Total 2054 ml Output Total 850 ml Balance 1204 ml Laboratory Data 24H LABS Laboratory Tests 2 09/24/19 12:44: Bedside Glucose (Misc Panel) 186H 09/24/19 16:49: Bedside Glucose (Misc Panel) 150H 09/24/19 20:30: Bedside Glucose (Misc Panel) 225H 09/25/19 05:22: Nucleated Red Blood Cells % (auto) 0.0, Anion Gap 5L, Glomerular Filtration Rate 51.8, Calcium Level 8.7L CBC/BMP Laboratory Tests 09/25/19 05:22 Microbiology Microbiology 09/21/19 Blood Culture - Preliminary, Resulted No Growth after 72 hours. All specime... 09/21/19 Respiratory Virus Panel (PCR) (MICHELA) - Final, Complete 09/21/19 Blood Culture - Preliminary, Resulted No Growth after 72 hours. All specime... DANY WEST MD Sep 25, 2019 10:06
[2019-09-25] MEDS ORDERED: methylPREDNISolone INJ 40 MG/1 ML VIAL (J2920) IV SCH (11:00)
[2019-09-25] MEDS: TIOTROPIUM INHALER/CAPSULE (SPIRIVA) INH SCH (11:24)
[2019-09-25] MEDS: methylPREDNISolone INJ 40 MG/1 ML VIAL (J2920) IV SCH (11:26)
[2019-09-25] MEDS: ASPIRIN 81 MG ENTERIC TAB PO SCH (11:26)
[2019-09-25 14:00] VITALS: BP 124/65
[2019-09-25 21:00] VITALS: O2SAT 94
[2019-09-25] MEDS: SIMVASTATIN 10 MG TAB PO SCH (21:44)
[2019-09-25] MEDS: SPIRONOLACTONE 12.5MG PER 1/2 TABLET PO SCH (21:47)
[2019-09-25 22:00] VITALS: BP 131/73
[2019-09-26] MEDS: ALBUTEROL SULFATE 2.5 MG/0.5 ML INH NEB SOLN NEB SCH ×6 (04:00→19:53)
[2019-09-26 06:00] VITALS: BP 160/78
[2019-09-26 06:12] LABS: HEMATOCRIT 31.6 % (42.0-52.0); HEMOGLOBIN 9.7 g/dl (13.5-17.5); MEAN CORPUSCULAR HEMOGLOBIN 29.8 pg (27.0-33.0); MEAN CORPUSCULAR HGB CONC 30.7 g/dl (32.0-36.5); MEAN CORPUSCULAR VOLUME 96.9 fl (80.0-96.0); PLATELET COUNT, AUTOMATED 230 10^3/uL (150-450); RED BLOOD COUNT 3.26 10^6/uL (4.30-6.10); WHITE BLOOD COUNT 11.9 10^3/uL (4.0-10.0)
[2019-09-26 06:30] LABS: CREATININE FOR GFR 1.43 MG/DL (0.70-1.30); GLOMERULAR FILTRATION RATE 50.2 (>35)
[2019-09-26] MEDS: BUDESONIDE 0.5 MG/2 ML INHALATION SUSPENSION INH SCH ×2 (07:54→19:53)
[2019-09-26] MEDS: TIOTROPIUM INHALER/CAPSULE (SPIRIVA) INH SCH (07:54)
[2019-09-26] MEDS: HumaLOG INSULIN (NovoLOG) PER UNIT SC SCH ×4 (09:31→20:48)
[2019-09-26] MEDS: methylPREDNISolone INJ 40 MG/1 ML VIAL (J2920) IV SCH (09:31)
[2019-09-26] MEDS: HEPARIN SOD (PORCINE) 5000 UNITS/ML VIAL SQ SCH ×2 (09:32→20:38)
[2019-09-26] MEDS: MULTIVITAMINS/MINERALS THERAP 1 TAB PO SCH (09:32)
--- NOTE | 2019-09-26 11:06 | IPNPDOC ---
Subjective Date Seen The patient was seen on 09/26/19. Subjective Chief Complaint/HPI Says feels well today. rested last night, did not have any desaturations last night and did not have any confusion as per nurses. Still on 6 liters high flow. Needing 10 liters during ambulation. Objective Physical Examination General Exam: Positive: Alert, Cooperative, No Acute Distress Eye Exam: Positive: PERRLA, Conjunctiva & lids normal, EOMI; Negative: Sclera icteric ENT Exam: Positive: Atraumatic, Mucous membr. moist/pink, Pharynx Normal Neck Exam: Positive: Supple; Negative: JVD, thyromegaly Chest Exam: Positive: Diminished, Other (bilateral velcro crackles extending up to the mid back unchanged due to fibrosis. ) Heart Exam: Positive: Rate Normal, Regular Rhythm, Normal S1, Normal S2, Murmurs (systlic); Negative: Rubs Abdomen Exam: Positive: Normal bowel sounds, Soft; Negative: Tenderness, Hepatospenomegaly Extremity Exam: Negative: Clubbing, Cyanosis, Edema Skin Exam: Positive: Nl turgor and temperature, Other skin issue (chronic stasis changes inteh skin of both legs); Negative: Rash, Breakdown Neuro Exam: Positive: Normal Speech, Strength at 5/5 X4 ext, Normal Tone Psych Exam: Positive: Mental status NL, Mood NL, Memory Intact, Oriented x 3 Assessment /Plan Assessment 84 year old male with PMH of Dyslipidemia, Hypertension, Diabetes, Chronic obstructive pulmonary disease (COPD) with Chronic respiratory failure with hypoxia on 3 L, Pulmonary fibrosis, Diastolic heart failure, ejection fraction (EF) of 60% to 65%, severe tricuspid regurgitation, mild aortic regurgitation, mild mitral regurgitation, severe pulmonary hypertension, corpulmonale, Obesity, body mass index (BMI) of 30.5, Benign prostatic hypertrophy (BPH), Stage III chronic kidney disease, baseline creatinine of 1.3 to 1.4 , h/o Afib presented to the ED for generalized weakness and SOB. The patient's son stated that today when the patient was walking he appears weak and started to go down. The son was able to help the patient down to the ground. He was prescribed Keflex for an uncomplicated UTI a week ago which he has finished. The patients family became concerned with his increasing level of weakness and brought the patient to the ER for further evaluation. It was felt that he may have CHF exacerbation. Acute on chronic hypoxic respiratory failure often requiring 10 to 15 liters of oxygen to maintain oxygen saturations. ? CHF exacerbation, progression of his lung disease with acute flare of his pulmonary fibrosis vs aspirations at night Now his desaturating during minimal movement. At rest he is maintaining his oxygen saturations with 6 Liters. patient does not appear to be fluid overloaded today. Sleep with head end raised. will hold this am lasix then resume form pm. Acute on chronic diastolic congestive heart failure exacerbation and acute on chronic right heart failure. mostly at night having severe desaturations often requiring 10 to 15 liters of oxygen. better during the day. Last echocardiogram was in 2017 demonstrating an EF of 60-65% Severe pulmonary hypertension 65 to 75 . severe TR. A fib so could not determime diastolic function. Will get a new echo 1500cc fluid restriction and 2g sodium diet was ot following fluid restriction at hospital. Continue lasix bid. clinically he does not look fluid overloaded. Has trace edema probably from corpulmonale. Acute delirium/ acute encephalopathy confusion at night. Ben says this am that he gets confused at night in home too. could be sun downing and acute delirium from the hospitalization Vs it could be due to hypoxia. he was more hypoxic at night. END stage COPD with pulmonary fibrosis with chronic respiratory failure with hypoxia. continue nebs, budesonide and albuterol. Patient desaturates with minimal exertion to 70s and takes several minutes to recover. today its a little better took only 3 minutes to recover. Severe pulmonary hypertension with corpulmonale on diuretics Diabetes Mellitus Type 2 Holding Metformin Sliding scale coverage FS ac and HS hypoglycemic protocol History of CAD Continue Aspirin 81 mg and Simvastatin 10mg CKD stage 3 creatinine at baseline monitor to avaoid overdiuresis. BPH continue home meds Hypertension with episodes of hypotension to low normal BP On diuretics only will continue. H/o Afib seen in echo of 2017 now in sinus rhythm this admission not on any anticoagulation. Dyslipidemia continue home meds. Dysphagia Had swallow eval ST is following. Generalized weakness due to general physical deconditioning. May be increased by recent infection a week ago with use of antibiotics with mild CHF exacerbation. PT evaluation Code: Discussed with patient this morning says he wants to be DNR. When asked about ventilator and intubation he said no to Tube down the throat and no breathing machine. Plan/VTE VTE Prophylaxis Ordered?: Yes VS, I&O, 24H, Fishbone Vital Signs/I&O Vital Signs Date Time Temp Pulse Resp B/P (MAP) Pulse Ox O2 Delivery O2 Flow Rate FiO2 09/26/19 06:00 97.3 68 20 160/78 (105) 92 High Flow Cannula 6.0 09/22/19 21:06 32 I&O- Last 24 Hours up to 6 AM 09/26/19 06:00 Intake Total 1020 ml Output Total 2130 ml Balance -1110 ml Laboratory Data 24H LABS Laboratory Tests 2 09/25/19 11:54: Bedside Glucose (Misc Panel) 167H 09/25/19 17:14: Bedside Glucose (Misc Panel) 329H 09/25/19 21:03: Bedside Glucose (Misc Panel) 343H 09/26/19 05:47: Nucleated Red Blood Cells % (auto) 0.0, Anion Gap 5L, Glomerular Filtration Rate 50.2, Calcium Level 9.0 CBC/BMP Laboratory Tests 09/26/19 05:47 Microbiology Microbiology 09/25/19 Urine Culture, Received Pending 09/21/19 Blood Culture - Preliminary, Resulted No Growth after 72 hours. All specime... 09/21/19 Respiratory Virus Panel (PCR) (MICHELA) - Final, Complete 09/21/19 Blood Culture - Preliminary, Resulted No Growth after 72 hours. All specime... DANY WEST MD Sep 26, 2019 11:06
[2019-09-26] MEDS: ASPIRIN 81 MG ENTERIC TAB PO SCH (13:02)
[2019-09-26 14:00] VITALS: BP 152/70
[2019-09-26] MEDS: FUROSEMIDE 40 MG/4 ML VIAL (J1940) IV SCH (17:40)
[2019-09-26 19:53] VITALS: O2SAT 98
[2019-09-26] MEDS: SIMVASTATIN 10 MG TAB PO SCH (20:37)
[2019-09-26] MEDS: SPIRONOLACTONE 12.5MG PER 1/2 TABLET PO SCH (20:39)
[2019-09-26 22:00] VITALS: BP 117/64
[2019-09-27] MEDS: ALBUTEROL SULFATE 2.5 MG/0.5 ML INH NEB SOLN NEB SCH ×5 (00:13→20:00)
[2019-09-27 06:00] VITALS: BP 141/71
--- NOTE | 2019-09-27 06:38 | ECHO ---
DATE OF STUDY: 09/26/2019 DATE OF : 06/28/1934 AGE: 84 GENDER: Male HEIGHT: 68 inches WEIGHT: 200 pounds BODY SURFACE AREA: 2.0m meters squared INPATIENT: 4 [place] - Room 4229 REFERRING PHYSICIAN: Dr. Nuvia Vazquez INDICATION: Dyspnea. MEASUREMENTS 2-D Measurements: RV: 4.8 cm LV: 5.0 cm Septum: 1.2 cm Posterior wall: 1.2 cm Aortic root: 3.5 cm LA: 4.5 cm LVEF: 65% Doppler Measurements: AV: Unable to obtain, incorrect angle LVOT: Incorrect angle, unable to obtain LVOT diameter; 2.1 cm MV - E 69 A 86 EA ratio 0.8 Early mitral deceleration time: 135 ms Unable to obtain tissue Doppler study in light of incorrect angle. PV: 0.95 m/s Pulmonary artery acceleration time: 82 ms RVSP: 46 mmHg IVC: 1.8 cm COMMENTS: Normal sinus rhythm without intraventricular conduction disturbance. Technically difficult study in light of the patient's body habitus, but some diagnostically useful information was still obtained. We attempted to perform M-mode and two-dimensional echocardiography with pulsed, continuous wave, color flow and tissue Doppler, but found this to be extremely challenging. Borderline concentric Left ventricular hypertrophy with proximal septal wall motion abnormality possibly related to right ventricular pressure overload. Preserved global resting left ventricular systolic function. At least mildly dilated left atrium with grade 1 LV diastolic dysfunction. At least mildly dilated right heart chambers and Doppler evidence of at least moderate pulmonary hypertension. Normal IVC size and collapse against an elevated central venous pressure. Moderate aortic valvular sclerosis without stenosis and very mild insufficiency. Normal aortic dimensions. Mitral annular calcification of a mild degree with mild insufficiency. Normal appearing tricuspid valve with mild insufficiency. We could not detect any intracardiac mass. Minuscule circumferential pericardial effusion measuring perhaps 5 mm. No evidence of cardiac chamber compression or respiratory variation in pulsed Doppler signals to suggest cardiac tamponade. MTDD
[2019-09-27 06:58] LABS: HEMATOCRIT 31.5 % (42.0-52.0); HEMOGLOBIN 9.7 g/dl (13.5-17.5); MEAN CORPUSCULAR HEMOGLOBIN 30.1 pg (27.0-33.0); MEAN CORPUSCULAR HGB CONC 30.8 g/dl (32.0-36.5); MEAN CORPUSCULAR VOLUME 97.8 fl (80.0-96.0); PLATELET COUNT, AUTOMATED 261 10^3/uL (150-450); RED BLOOD COUNT 3.22 10^6/uL (4.30-6.10); WHITE BLOOD COUNT 13.8 10^3/uL (4.0-10.0)
[2019-09-27 07:25] LABS: CALCIUM LEVEL 9.1 MG/DL (8.8-10.2); CREATININE FOR GFR 1.54 MG/DL (0.70-1.30)
[2019-09-27] MEDS: TIOTROPIUM INHALER/CAPSULE (SPIRIVA) INH SCH (08:12)
[2019-09-27] MEDS: BUDESONIDE 0.5 MG/2 ML INHALATION SUSPENSION INH SCH ×2 (08:12→20:00)
[2019-09-27] MEDS ORDERED: FUROSEMIDE 40 MG/4 ML VIAL (J1940) IV SCH (09:00)
[2019-09-27] MEDS ORDERED: LEVEMIR (INSULIN DETEMIR) 1 UNITS/0.01ML SC SCH ×2 (09:00)
[2019-09-27] MEDS ORDERED: LevoFLOXacin 500 MG TABLET PO ONE (09:00)
[2019-09-27] MEDS: HumaLOG INSULIN (NovoLOG) PER UNIT SC SCH ×4 (09:37→20:56)
[2019-09-27] MEDS: HEPARIN SOD (PORCINE) 5000 UNITS/ML VIAL SQ SCH ×2 (09:37→20:58)
[2019-09-27] MEDS: methylPREDNISolone INJ 40 MG/1 ML VIAL (J2920) IV SCH (09:39)
[2019-09-27] MEDS: MULTIVITAMINS/MINERALS THERAP 1 TAB PO SCH (09:43)
--- NOTE | 2019-09-27 10:50 | CR ---
DATE OF CONSULTATION: 09/26/2019 I was asked by Dr. Nuvia Vazquez to evaluate Mr. Mccall for hypoxemic respiratory failure. HISTORY OF PRESENT ILLNESS: Mr. Mccall is an 84-year-old white male with a past medical history notable for bronchiectasis and restrictive lung disease, who presented to the emergency room with a complaint of generalized weakness and shortness of breath that have been going on for about a week before the admission. He had a cough that has been productive of white sputum and is predominantly in the morning. He has not sense postnasal drip or gastroesophageal reflux disease (GERD) symptoms. No wheezing. No chest pain or pressure. He had increasing lower extremity edema. When he presented, he had no fevers, chills or drenching night sweats. He always sleeps on 1 to 2 pillows and that had not changed. No paroxysmal nocturnal dyspnea (PND). When he presented to the emergency room, he was listed as requiring 4 liters by nasal cannula. In the emergency room, it was found saturation of 92% on 4 liters, a normal arterial blood gas (ABG) on 4 liters BNP of 1247 and a lactic acid of 2.2. It was felt that he had decompensation of diastolic congestive heart failure (CHF). had been admitted August 19 through August 24 secondary to respiratory syncytial virus (RSV). He was seen by Dr. Rojas on September 16 during which time he was felt to be improving, but not at baseline. His saturations in clinic on his baseline 3 liters sitting in wheelchair were 88% so not likely any different than when he presented to the emergency department. Dr. Rojas 's note describes "at least" 1+ bilateral lower extremity edema. He notes that they were going to see his primary care provider that day because of concern regarding a urinary tract infection (UTI). He was admitted 09/21 and was on 2 to 4 liters by nasal cannula until 09/23 when his oxygen requirements appeared to increase. His maximum was 1224 when he was on 15 meters overnight. He was on 6 liters last night and is on 6 liters this morning. Since his admission, through the , he is listed as 2169 cc positive. I had spoken with Dr. Vazquez yesterday; and when we had noted this positivity, recommended diuresis and he has diuresed over night 900 mL. He has not been placed on antibiotics as it was not felt to be effective and his repeat viral panel was negative. Because of his history, he was started on low dose of Solu-Medrol yesterday in case there was a component of bronchiectatic exacerbation, although that seems less likely and fluid overload. Today, he tells me that he feels much better. He is close to baseline. He continues to have a cough in the mornings productive of white sputum, but that has improved. He notes his lower extremity edema is markedly improved. He denies postnasal drip or gastroesophageal reflux disease (GERD) symptoms. No change in his 1-2 pillow orthopnea. No chest pain or pressure. No PND. He has not been febrile while in the hospital. PAST MEDICAL HISTORY: 1. Bronchiectasis. 2. Chronic respiratory failure with hypoxemia. 3. Restrictive lung disease a. Spirometry 03/27/2019: FEV-1 1.83 liters (74% predicted), FVC 2.13, (62% predicted). FEV-1/ FVC ratio normal 86%. 4. Pulmonary hypertension severe. a. Echocardiogram 2016 showed estimated pulmonary artery pressures of 65-75. 5. Chronic kidney disease stage III. 6. History of coronary artery disease (CAD). 7. Diabetes mellitus, type 2. 8. Benign prostate hypertrophy. 9. Diastolic heart failure. 10. History of atrial fibrillation. 11. Dyslipidemia. 12. Hypertension. 13. Status post left hip surgery. 14. Status post left knee replacement. 15. Status post open reduction and internal fixation (ORIF) right ankle fracture. 16. History of tobacco usage. ALLERGIES: No known drug allergies. . MEDICATIONS ON ADMISSION: - acetaminophen 1000 mg by mouth every 8 hours as needed - albuterol nebulization one nebulization three times a day as needed - aspirin 81 mg by mouth daily - Arnuity one puff every day - ketoconazole topically twice a day - metformin 850 mg by mouth twice a day - multivitamin one by mouth every day - Zocor 10 mg by mouth every day - spironolactone 12.5 mg by mouth at bedtime (q.h.s.) - torsemide 40 mg by mouth every day SOCIAL HISTORY: Mr. Mccall lives at home. He is a former smoker, but having quit over 30 years ago. Social alcohol usage. Denies any illicit drug. FAMILY HISTORY: Mother had heart disease and father had coronary artery disease (CAD) with history of myocardial infarction. REVIEW OF SYSTEMS: Per history of present illness. Major pertinent review of systems negative. PHYSICAL EXAMINATION: General: Mr. Mccall is lying in bed in no acute distress. He complete full sentences. No cough at evaluation. Vital signs: Temperature 97.3 with a T-max of 98.4, pulse 68, respiratory rate 20, blood pressure 160/78 with a MAP of 105, SPO2 92% on 6 liters by nasal cannula. HEENT: Anicteric, PERRLA. Nares: Patent bilaterally. Oropharynx clear. No lesions, no evidence of drainage in the posterior pharynx. Neck: Supple, without thyromegaly or masses, trachea is midline. Lymph: Without cervical or supraclavicular lymphadenopathy. Chest: Normal shape. Lungs: Symmetric excursion, fair air entry, bilateral fine/velcro crackles heard 2[address] and anteriorly. No wheeze or rhonchi. Normal I:E. No accessory muscle usage or retractions. Cardiovascular: Regular rate and rhythm with a normal S1-S2, no murmur, rub or gallop appreciated. Abdomen: Positive bowel sounds, soft, nondistended, nontender, no hepatosplenomegaly or masses appreciated. Extremities: Without clubbing, cyanosis or significant edema. Palpable pedal pulses bilaterally. LABORATORY DATA: Complete blood count (CBC) from this morning showed a hemoglobin 9.7, hematocrit 31.6, platelet count 230,000, white blood cell count 11,900. Chemistry shows sodium 137, potassium 4, chloride 98, bicarbonate 34, anion gap 5, BUN 35, creatinine 1.43, glucose 233, calcium 9.0. Arterial blood gas on admission on 4 liters was 7.48/44/66 with a measured saturation of 93% a base excess of 7.3. Procalcitonin from 09/24 was 0.31. I reviewed his chest x-ray from 09/24/2019. That was a lordotic view. It likely was a shallow respiration or representation of small lung volumes. The cardiac silhouette was enlarged. There are diffuse interstitial infiltrates. I reviewed his chest CT scan, as well as the report from 09/21/19. That CT scan showed enlarged cardiac silhouette and enlarged pulmonary vascular shadows. There were bilateral bronchiectatic changes, as well as regions of scarring and some honeycombing. No consolidated regions. Per the report these findings were stable compared to CT scan from 08/19/2019. IMPRESSION: 1. Acute and chronic hypoxemic respiratory failure. Mr. Mccall's baseline oxygen level was 30. With 3 liters though in clinic on 09/16, his saturation was 88% on 3 liters which is not significantly different than how he was on presentation to the emergency department. I believe his acute increase in oxygen requirements is likely secondary to fluid overload. I also suspect that his relative decrease in oxygen needs is secondary to diuresis. I do not believe he has an infective etiology for his findings. Bronchiectatic exacerbation will be in the differential, although that seems less likely. He does not have chronic obstructive pulmonary disease (COPD). While he has some pulmonary fibrosis, his prominent diagnosis is bronchiectasis. 2. Bronchiectasis. 3. Restrictive lung disease. 4. Pulmonary hypertension, severe. 5. Coronary artery disease. 6. Diastolic dysfunction. 7. Hypertension. 8. Diabetes mellitus type 2. 9. Remote history of tobacco usage. RECOMMENDATIONS: 1. At this point, I would decrease his Solu-Medrol to 30 mg daily for a day or two and then stop it; as I do not feel he is having either bronchiectatic or pulmonary fibrosis exacerbation. 2. He is not felt to have chronic obstructive pulmonary disease (COPD) per Dr. Rojas and I would recommend trying to remove this from his chart. 3. I would continue to gently diurese and monitoring his pulmonary hypertension. 4. It may be helpful to resend a basic metabolic panel (BMP). Certainly the peripheral edema that was described by Dr. Rojas on 09/16 has resolved. 5. In regards to his desaturation with fibrosis, it can be anticipated that he has significant desaturations with ambulation and it will take 10-15 minutes for him to come up to more reasonable level. That is likely present at baseline. Thank you for this consultation and will continue to follow with you.
--- NOTE | 2019-09-27 12:40 | IPN ---
DATE OF SERVICE: 09/27/2019 Mr. Mccall is seen on [facility]. He reports that he is feeling better today. He denies any fevers or chills. He continues to be on high-flow oxygen at a rate of 8. He states he is coughing and occasionally able to bring up some mucus. Denies any other new issues. PHYSICAL EXAMINATION: Vitals: Temperature 99.2, pulse 77, respiratory rate 21, blood pressure is 141/71, pulse oximetry 93% on 8 liters high-flow. General: Patient is alert and oriented times three. He talks in complete sentences. He is sitting up on the side of his bed. HEENT: Head is normocephalic, atraumatic. Moist mucous membranes. Neck is supple. No cervical lymphadenopathy. No jugular venous distention (JVD). Pulmonary: Expiratory wheezing throughout. No accessory muscle use. Cardiac: Regular rate and rhythm. S1, S2. No murmurs appreciated. Abdomen: Positive bowel sounds, soft, nontender. No obvious hepatosplenomegaly. Extremities with no clubbing, cyanosis or edema. LABORATORY DATA: WBC 13.18, hemoglobin 9.7, hematocrit 31.5, platelets 261. Sodium 140, potassium 4.0, chloride 101, carbon dioxide 33, BUN 42, creatinine 1.54, glucose 155, calcium 9.1. ASSESSMENT/PLAN: Hypoxia. Patient is still requiring a significant amount of supplemental oxygen with 8 liters high-flow. We will obtain a chest x-ray. He currently is getting Solu-Medrol 30 mg every 24 hours. He is also getting nebulized Pulmicort twice a day. He has albuterol nebs every 4 hours and is on Spiriva. He is also being diuresed and is on furosemide. Intake and output yesterday show a net negative of 900. Continue to monitor closely.
--- NOTE | 2019-09-27 13:32 | REP ---
Clinical: Hypoxia. Technique: AP and lateral. Comparison: 09/24/2019. Findings: Stable cardiomegaly. Chronic fibrosis and interstitial changes are appreciated with superimposed multifocal infiltrates suggested. No definite effusion. No pneumothorax. Skeletal structures stable. Impression: Cardiomegaly and chronic fibrosis/interstitial disease. Superimposed multifocal infiltrates suggested. Electronically Signed by vIán Henao MD 09/27/2019 01:24 P
[2019-09-27 14:00] VITALS: BP 120/60
[2019-09-27] MEDS ORDERED: ALBUTEROL SULFATE 2.5 MG/0.5 ML INH NEB SOLN NEB SCH (14:00)
[2019-09-27] MEDS: ASPIRIN 81 MG ENTERIC TAB PO SCH (14:00)
[2019-09-27] MEDS: TORSEMIDE 20 MG TAB PO SCH (15:15)
[2019-09-27] MEDS ORDERED: MORPHINE 10MG/0.5ML ORAL CONCENTRATE SOLUTION U/D SL PRN (17:00)
--- NOTE | 2019-09-27 17:03 | IPNPDOC ---
Subjective Date Seen The patient was seen on 09/27/19. Subjective Chief Complaint/HPI feels good this morning. Says feels his usual self wants to go home. Has some cough in the morning with whitish sputum, No fever or chills, nodysuria or difficulty in urination. Objective Physical Examination General Exam: Positive: Alert, Cooperative, No Acute Distress Eye Exam: Positive: PERRLA, Conjunctiva & lids normal, EOMI; Negative: Sclera icteric ENT Exam: Positive: Atraumatic, Mucous membr. moist/pink, Pharynx Normal Neck Exam: Positive: Supple; Negative: JVD, thyromegaly Chest Exam: Positive: Diminished, Other (bibasal velcro crackes) Heart Exam: Positive: Rate Normal, Regular Rhythm, Normal S1, Normal S2, Murmurs (systlic); Negative: Rubs Abdomen Exam: Positive: Normal bowel sounds, Soft; Negative: Tenderness, Hepatospenomegaly Extremity Exam: Positive: Normal pulses; Negative: Clubbing, Cyanosis, Edema Skin Exam: Positive: Nl turgor and temperature; Negative: Rash, Breakdown Neuro Exam: Positive: Normal Speech, Strength at 5/5 X4 ext, Normal Tone Psych Exam: Positive: Mental status NL, Mood NL, Memory Intact, Oriented x 3 Assessment /Plan Assessment 84 year old male with PMH of Dyslipidemia, Hypertension, Diabetes, Chronic obstructive pulmonary disease (COPD) with Chronic respiratory failure with hypoxia on 3 L, Pulmonary fibrosis, Diastolic heart failure, ejection fraction (EF) of 60% to 65%, severe tricuspid regurgitation, mild aortic regurgitation, mild mitral regurgitation, severe pulmonary hypertension, corpulmonale, Obesity, body mass index (BMI) of 30.5, Benign prostatic hypertrophy (BPH), Stage III chronic kidney disease, baseline creatinine of 1.3 to 1.4 , h/o Afib presented to the ED for generalized weakness and SOB. The patient's son stated that today when the patient was walking he appears weak and started to go down. The son was able to help the patient down to the ground. He was prescribed Keflex for an uncomplicated UTI a week ago which he has finished. The patients family became concerned with his increasing level of weakness and brought the patient to the ER for further evaluation. It was felt that he may have CHF exacerbation. Acute on chronic hypoxic respiratory failure CHF exacerbation, progression of his restrictive lung disease with acute flare of his pulmonary fibrosis Now his desaturating during minimal movement. At rest he is maintaining his oxyg en saturations with 6 Liters. patient does not appear to be fluid overloaded today. His creatinine is rising will stop IV lasix and put back on home torsemide. continue with fluid restriction. Sleep with head end raised. new CXR with fibrosis and superimposed infiltrates. seen by pulmonary On Levofloxacin for UTi / CYstitis UTI/Cystitis Ecloli will give levofloxacin. Acute on chronic diastolic congestive heart failure and acute on chronic right heart failure. Last echocardiogram was in 2017 demonstrating an EF of 60-65% Severe pulmonary hypertension 65 to 75 . severe TR. A fib so could not determime diastolic function. new echo was poor quality could not get good image to calculate the pulmonary pressure and was only 45. 1500cc fluid restriction and 2g sodium diet continue torsemide clinically he does not look fluid overloaded. Acute delirium/ acute encephalopathy confusion at night. could be sun downing and acute delirium from the hospitalization Vs it could be due to hypoxia. he is more hypoxic at night. Bronchiectasis and pulmonary fibrosis with restrictive lung disease with chronic respiratory failure with hypoxia and severe pulmonary hypertension His pulmonary function test does not show any COPD. continue nebs, budesonide and albuterol and levofloxacin. Patient desaturates with minimal exertion to 70s and takes several minutes to recover. today its a little better took only 3 minutes to recover. Severe pulmonary hypertension with corpulmonale on diuretics Diabetes Mellitus Type 2 Holding Metformin Sliding scale coverage FS ac and HS hypoglycemic protocol History of CAD Continue Aspirin 81 mg and Simvastatin 10mg CKD stage 3 creatinine at baseline monitor to avaoid overdiuresis. BPH continue home meds Hypertension with episodes of hypotension to low normal BP On diuretics only will continue. H/o Afib seen in echo of 2017 now in sinus rhythm this admission not on any anticoagulation. Dyslipidemia continue home meds. Dysphagia Had swallow eval ST is following. Generalized weakness due to general physical deconditioning. May be increased by recent infection a week ago with use of antibiotics with mild CHF exacerbation. PT evaluation DME requirement : Hospital bed as patient needs frequent change of posture and elevation of head end to greater than 30 degrees due to severe hypoxia due to advanced pulmonary fibrosis and restrictive lung disease, severe pulmonary hypertension and diastolic CHF with frequent desaturations. Code: Discussed with patient this morning says he wants to be DNR. When asked about ventilator and intubation he said no to Tube down the throat and no breathing machine. Family wants to take him home with home hospice. i spoke with Dr Quan and Dr Zurita today and Dr Rojas earlier in navya week and both Dr Rojas and Dr Zurita are willing to be his Hospice doctor. Discussed with PFS will start the process of home hospice set up. Plan/VTE VTE Prophylaxis Ordered?: Yes VS, I&O, 24H, Fishbone Vital Signs/I&O Vital Signs Date Time Temp Pulse Resp B/P (MAP) Pulse Ox O2 Delivery O2 Flow Rate FiO2 09/27/19 14:00 98.0 74 22 120/60 (80) 94 High Flow Cannula 8.0 09/22/19 21:06 32 I&O- Last 24 Hours up to 6 AM 09/27/19 06:00 Intake Total 1226 ml Output Total 1950 ml Balance -724 ml Laboratory Data 24H LABS Laboratory Tests 2 09/26/19 17:04: Bedside Glucose (Misc Panel) 348H 09/26/19 20:44: Bedside Glucose (Misc Panel) 361H 09/27/19 06:31: Nucleated Red Blood Cells % (auto) 0.1H, Anion Gap 6L, Glomerular Filtration Rate 46.0, Calcium Level 9.1 09/27/19 11:36: Bedside Glucose (Misc Panel) 182H CBC/BMP Laboratory Tests 09/27/19 06:31 Microbiology Microbiology 09/25/19 Urine Culture - Final, Complete Escherichia Coli 09/21/19 Blood Culture - Final, Complete NO GROWTH AFTER 5 DAYS 09/21/19 Respiratory Virus Panel (PCR) (MICHELA) - Final, Complete 09/21/19 Blood Culture - Final, Complete NO GROWTH AFTER 5 DAYS DANY WEST MD Sep 27, 2019 17:03
[2019-09-27] MEDS: SIMVASTATIN 10 MG TAB PO SCH (20:57)
[2019-09-27] MEDS: SPIRONOLACTONE 12.5MG PER 1/2 TABLET PO SCH (20:58)
[2019-09-27 22:00] VITALS: BP 121/63
[2019-09-28] MEDS: ALBUTEROL SULFATE 2.5 MG/0.5 ML INH NEB SOLN NEB SCH ×5 (01:38→20:24)
[2019-09-28] MEDS: LevoFLOXacin 250 MG TABLET PO SCH (05:36)
[2019-09-28 06:00] VITALS: BP 121/64
[2019-09-28 06:58] LABS: HEMATOCRIT 34.2 % (42.0-52.0); HEMOGLOBIN 10.8 g/dl (13.5-17.5); MEAN CORPUSCULAR HEMOGLOBIN 30.5 pg (27.0-33.0); MEAN CORPUSCULAR HGB CONC 31.6 g/dl (32.0-36.5); MEAN CORPUSCULAR VOLUME 96.6 fl (80.0-96.0); PLATELET COUNT, AUTOMATED 325 10^3/uL (150-450); RED BLOOD COUNT 3.54 10^6/uL (4.30-6.10); WHITE BLOOD COUNT 15.6 10^3/uL (4.0-10.0)
[2019-09-28] MEDS: TIOTROPIUM INHALER/CAPSULE (SPIRIVA) INH SCH (07:15)
[2019-09-28] MEDS: BUDESONIDE 0.5 MG/2 ML INHALATION SUSPENSION INH SCH ×2 (07:15→20:24)
[2019-09-28 07:19] LABS: CALCIUM LEVEL 9.5 MG/DL (8.8-10.2); CREATININE FOR GFR 1.79 MG/DL (0.70-1.30); GLOMERULAR FILTRATION RATE 38.7 (>35); POTASSIUM SERUM 4.1 MEQ/L (3.5-5.1)
[2019-09-28] MEDS: methylPREDNISolone INJ 40 MG/1 ML VIAL (J2920) IV SCH (09:03)
[2019-09-28] MEDS: TORSEMIDE 20 MG TAB PO SCH (09:03)
[2019-09-28] MEDS: MULTIVITAMINS/MINERALS THERAP 1 TAB PO SCH (09:03)
[2019-09-28] MEDS: HumaLOG INSULIN (NovoLOG) PER UNIT SC SCH ×4 (09:04→20:39)
[2019-09-28] MEDS: HEPARIN SOD (PORCINE) 5000 UNITS/ML VIAL SQ SCH ×2 (09:04→20:43)
[2019-09-28] MEDS: LEVEMIR (INSULIN DETEMIR) 1 UNITS/0.01ML SC SCH (09:05)
[2019-09-28] MEDS ORDERED: GLIP10TA PO (10:12)
[2019-09-28] MEDS ORDERED: PX O20TA PO (10:12)
[2019-09-28] MEDS ORDERED: LEVO250T12 PO (10:12)
[2019-09-28] MEDS ORDERED: PRED10TA2 PO (10:12)
[2019-09-28] MEDS ORDERED: ALBU83IN NEB (10:12)
[2019-09-28] MEDS ORDERED: BUDE0.5S6 INH (10:12)
[2019-09-28] MEDS ORDERED: ALCOPAD25 TOP (10:33)
[2019-09-28] MEDS ORDERED: BLOOKIT21 XX (10:33)
[2019-09-28] MEDS ORDERED: GLUC1TES2 XX (10:33)
[2019-09-28] MEDS ORDERED: LANC30MI XX (10:33)
[2019-09-28] MEDS: ASPIRIN 81 MG ENTERIC TAB PO SCH (12:45)
[2019-09-28 14:00] VITALS: BP 128/70
--- NOTE | 2019-09-28 16:28 | IPNPDOC ---
Subjective Date Seen The patient was seen on 09/28/19. Subjective Chief Complaint/HPI Denies any SOB this morning. Continues to be confused at night. Oxygen requirement 5 to 6 liters. Has some cough in the mornings. No fever or chills, no chest pain. No abdominal pain, nausea or vomiting. Objective Physical Examination General Exam: Positive: Alert, Cooperative, No Acute Distress Eye Exam: Positive: PERRLA, Conjunctiva & lids normal, EOMI; Negative: Sclera icteric ENT Exam: Positive: Atraumatic, Mucous membr. moist/pink, Pharynx Normal Neck Exam: Positive: Supple; Negative: JVD, thyromegaly Chest Exam: Positive: Diminished, Other (bibasal velcro crackes) Heart Exam: Positive: Rate Normal, Regular Rhythm, Normal S1, Normal S2, Murmurs (systlic); Negative: Rubs Abdomen Exam: Positive: Normal bowel sounds, Soft; Negative: Tenderness, Hepatospenomegaly Extremity Exam: Positive: Normal pulses; Negative: Clubbing, Cyanosis, Edema Skin Exam: Positive: Nl turgor and temperature; Negative: Rash, Breakdown Neuro Exam: Positive: Normal Speech, Strength at 5/5 X4 ext, Normal Tone Psych Exam: Positive: Mental status NL, Mood NL, Memory Intact, Oriented x 3 Assessment /Plan Assessment 84 year old male with PMH of Dyslipidemia, Hypertension, Diabetes, Chronic obstructive pulmonary disease (COPD) with Chronic respiratory failure with hypoxia on 3 L, Pulmonary fibrosis, Diastolic heart failure, ejection fraction (EF) of 60% to 65%, severe tricuspid regurgitation, mild aortic regurgitation, mild mitral regurgitation, severe pulmonary hypertension, corpulmonale, Obesity, body mass index (BMI) of 30.5, Benign prostatic hypertrophy (BPH), Stage III chronic kidney disease, baseline creatinine of 1.3 to 1.4 , h/o Afib presented to the ED for generalized weakness and SOB. The patient's son stated that today when the patient was walking he appears weak and started to go down. The son was able to help the patient down to the ground. He was prescribed Keflex for an uncomplicated UTI a week ago which he has finished. The patients family became concerned with his increasing level of weakness and brought the patient to the ER for further evaluation. It was felt that he may have CHF exacerbation. Acute on chronic hypoxic respiratory failure CHF exacerbation, progression of his restrictive lung disease with acute flare of his pulmonary fibrosis Now his desaturating during minimal movement. At rest he is maintaining his oxygen saturations with 6 Liters. patient does not appear to be fluid overloaded today. His creatinine is rising will stop IV lasix and put back on home torsemide. continue with fluid restriction. Sleep with head end raised. new CXR with fibrosis and superimposed infiltrates. seen by pulmonary On Levofloxacin for UTi / CYstitis UTI/Cystitis Ecloli will give levofloxacin. Acute on chronic diastolic congestive heart failure and acute on chronic right heart failure. Last echocardiogram was in 2017 demonstrating an EF of 60-65% Severe pulmonary hypertension 65 to 75 . severe TR. A fib so could not determime diastolic function. new echo was poor quality could not get good image to calculate the pulmonary pressure and was only 45. 1500cc fluid restriction and 2g sodium diet continue torsemide clinically he does not look fluid overloaded. Acute delirium/ acute encephalopathy confusion at night. could be sun downing and acute delirium from the hospitalization Vs it could be due to hypoxia. he is more hypoxic at night. Bronchiectasis and pulmonary fibrosis with restrictive lung disease with chronic respiratory failure with hypoxia and severe pulmonary hypertension His pulmonary function test does not show any COPD. Patient does not have COPD. continue nebs, budesonide and albuterol and levofloxacin. Patient desaturates with minimal exertion to 70s and takes several minutes to recover. today its a little better took only 3 minutes to recover. Severe pulmonary hypertension with corpulmonale on diuretics Diabetes Mellitus Type 2 start on glipizide. Sliding scale coverage FS ac and HS hypoglycemic protocol History of CAD Continue Aspirin 81 mg and Simvastatin 10mg ALLISON on CKD stage 3 due to diuresis. Now he is euvolemic will change to home diuretics. pateint's new baseline is probably 1.6 to 1.8 to maintain euvolemia comfortable breathing BPH continue home meds Hypertension with episodes of hypotension to low normal BP On diuretics only will continue. H/o Afib seen in echo of 2017 now in sinus rhythm this admission not on any anticoagulation. Dyslipidemia continue home meds. Dysphagia Had swallow eval ST is following. Generalized weakness due to general physical deconditioning. May be increased by recent infection a week ago with use of antibiotics with mild CHF exacerbation. PT evaluation DME requirement : Hospital bed as patient needs frequent change of posture and elevation of head end to greater than 30 degrees due to severe hypoxia due to advanced pulmonary fibrosis and restrictive lung disease, severe pulmonary hypertension and diastolic CHF with frequent desaturations. Code: Discussed with patient this morning says he wants to be DNR. When asked about ventilator and intubation he said no to Tube down the throat and no breathing machine. Family wants to take him home with home hospice. i spoke with Dr Quan and Dr Zurita today and Dr Rojas earlier in navya week and both Dr Rojas and Dr Zurita are willing to be his Hospice doctor. Discussed with PFS will start the process of home hospice set up. Plan/VTE VTE Prophylaxis Ordered?: Yes VS, I&O, 24H, Fishbone Vital Signs/I&O Vital Signs Date Time Temp Pulse Resp B/P (MAP) Pulse Ox O2 Delivery O2 Flow Rate FiO2 09/28/19 14:00 97.4 78 20 128/70 (89) 98 High Flow Cannula 6.0 09/22/19 21:06 32 I&O- Last 24 Hours up to 6 AM 09/28/19 06:00 Intake Total 1220 ml Output Total 1425 ml Balance -205 ml Laboratory Data 24H LABS Laboratory Tests 2 09/27/19 17:04: Bedside Glucose (Misc Panel) 426H 09/27/19 20:23: Bedside Glucose (Misc Panel) 320H 09/28/19 06:15: Nucleated Red Blood Cells % (auto) 0.4H, Anion Gap 6L, Glomerular Filtration Rate 38.7, Calcium Level 9.5 09/28/19 11:31: Bedside Glucose (Misc Panel) 213H CBC/BMP Laboratory Tests 09/28/19 06:15 Microbiology Microbiology 09/25/19 Urine Culture - Final, Complete Escherichia Coli 09/21/19 Blood Culture - Final, Complete NO GROWTH AFTER 5 DAYS 09/21/19 Respiratory Virus Panel (PCR) ([facility]HELA) - Final, Complete 09/21/19 Blood Culture - Final, Complete NO GROWTH AFTER 5 DAYS DANY WEST MD Sep 28, 2019 16:28
[2019-09-28] MEDS: glipiZIDE (GLUCOTROL) 5 MG TAB PO SCH (17:24)
[2019-09-28] MEDS: SIMVASTATIN 10 MG TAB PO SCH (20:43)
[2019-09-28] MEDS: SPIRONOLACTONE 12.5MG PER 1/2 TABLET PO SCH (20:44)
[2019-09-28 22:00] VITALS: BP 124/60
[2019-09-29] MEDS: ALBUTEROL SULFATE 2.5 MG/0.5 ML INH NEB SOLN NEB SCH ×6 (04:00→20:59)
[2019-09-29] MEDS: LevoFLOXacin 250 MG TABLET PO SCH (05:14)
[2019-09-29 05:22] VITALS: BP 119/64
[2019-09-29] MEDS: HumaLOG INSULIN (NovoLOG) PER UNIT SC SCH ×4 (07:02→22:18)
[2019-09-29] MEDS: TIOTROPIUM INHALER/CAPSULE (SPIRIVA) INH SCH (07:22)
[2019-09-29] MEDS: BUDESONIDE 0.5 MG/2 ML INHALATION SUSPENSION INH SCH ×2 (07:22→20:59)
[2019-09-29] MEDS ORDERED: LORazepam 0.5 MG TAB PO PRN (08:30)
[2019-09-29] MEDS ORDERED: HYOS125TA PO (08:30)
[2019-09-29] MEDS ORDERED: LORA0.5T11 PO ×2 (08:30→08:31)
[2019-09-29] MEDS ORDERED: MORP20SO3 PO ×2 (08:30→08:31)
--- NOTE | 2019-09-29 08:35 | IPNPDOC ---
Subjective Date Seen The patient was seen on 09/29/19. Subjective Chief Complaint/HPI Patient does not sleep much at night. As per nurses he slept about 2 hours. He gets very confused and anxious at night. He is down to 3 to 4 liters of oxygen requirement which is his baseline. Family wants home hospice set up before they will be able to take him home. I am hoping will be able to set up tomorrow. Objective Physical Examination General Exam: Positive: Alert, Cooperative, No Acute Distress Eye Exam: Positive: PERRLA, Conjunctiva & lids normal, EOMI; Negative: Sclera icteric ENT Exam: Positive: Atraumatic, Mucous membr. moist/pink, Pharynx Normal Neck Exam: Positive: Supple; Negative: JVD, thyromegaly Chest Exam: Positive: Diminished, Other (bibasal velcro crackes) Heart Exam: Positive: Rate Normal, Regular Rhythm, Normal S1, Normal S2, Murmurs (systlic); Negative: Rubs Abdomen Exam: Positive: Normal bowel sounds, Soft; Negative: Tenderness, Hepatospenomegaly Extremity Exam: Positive: Normal pulses; Negative: Clubbing, Cyanosis, Edema Skin Exam: Positive: Nl turgor and temperature; Negative: Rash, Breakdown Neuro Exam: Positive: Normal Speech, Strength at 5/5 X4 ext, Normal Tone Psych Exam: Positive: Mental status NL, Mood NL, Memory Intact, Oriented x 3 Assessment /Plan Assessment 84 year old male with PMH of Dyslipidemia, Hypertension, Diabetes, Chronic obstructive pulmonary disease (COPD) with Chronic respiratory failure with hypoxia on 3 L, Pulmonary fibrosis, Diastolic heart failure, ejection fraction (EF) of 60% to 65%, severe tricuspid regurgitation, mild aortic regurgitation, mild mitral regurgitation, severe pulmonary hypertension, corpulmonale, Obesity, body mass index (BMI) of 30.5, Benign prostatic hypertrophy (BPH), Stage III chronic kidney disease, baseline creatinine of 1.3 to 1.4 , h/o Afib presented to the ED for generalized weakness and SOB. The patient's son stated that today when the patient was walking he appears weak and started to go down. The son was able to help the patient down to the ground. He was prescribed Keflex for an uncomplicated UTI a week ago which he has finished. The patients family became concerned with his increasing level of weakness and brought the patient to the ER for further evaluation. It was felt that he may have CHF exacerbation. Acute on chronic hypoxic respiratory failure CHF exacerbation, progression of his restrictive lung disease with acute flare of his pulmonary fibrosis Now his desaturating during minimal movement. At rest he is maintaining his oxygen saturations with 6 Liters. patient does not appear to be fluid overloaded today. His creatinine is rising will stop IV lasix and put back on home torsemide. continue with fluid restriction. Sleep with head end raised. new CXR with fibrosis and superimposed infiltrates. seen by pulmonary On Levofloxacin for UTI/ CYstitis UTI/Cystitis Ecloli will give levofloxacin. Acute on chronic diastolic congestive heart failure and acute on chronic right heart failure. Last echocardiogram was in 2017 demonstrating an EF of 60-65% Severe pulmonary hypertension 65 to 75 . severe TR. A fib so could not determime diastolic function. new echo was poor quality could not get good image to calculate the pulmonary pressure and was only 45. 1500cc fluid restriction and 2g sodium diet continue torsemide clinically he does not look fluid overloaded. Acute delirium/ acute encephalopathy confusion at night. could be sun downing and acute delirium from the hospitalization Vs it could be due to hypoxia. he is more hypoxic at night. Bronchiectasis and pulmonary fibrosis with restrictive lung disease with chronic respiratory failure with hypoxia and severe pulmonary hypertension His pulmonary function test does not show any COPD. Patient does not have COPD. continue nebs, budesonide and albuterol and levofloxacin. Patient desaturates with minimal exertion to 70s and takes several minutes to recover. today its a little better took only 3 minutes to recover. Severe pulmonary hypertension with corpulmonale on diuretics Diabetes Mellitus Type 2 start on glipizide. Sliding scale coverage FS ac and HS hypoglycemic protocol History of CAD Continue Aspirin 81 mg and Simvastatin 10mg ALLISON on CKD stage 3 due to diuresis. Now he is euvolemic will change to home diuretics. pateint's new baseline is probably 1.6 to 1.8 to maintain euvolemia comfortable breathing BPH continue home meds Hypertension with episodes of hypotension to low normal BP On diuretics only will continue. H/o Afib seen in echo of 2017 now in sinus rhythm this admission not on any anticoagulation. Dyslipidemia continue home meds. Dysphagia Had swallow eval ST is following. Generalized weakness due to general physical deconditioning. May be increased by recent infection a week ago with use of antibiotics with mild CHF exacerbation. PT evaluation DME requirement : Hospital bed as patient needs frequent change of posture and elevation of head end to greater than 30 degrees due to severe hypoxia due to advanced pulmonary fibrosis and restrictive lung disease, severe pulmonary hypertension and diastolic CHF with frequent desaturations. Code: Discussed with patient this morning says he wants to be DNR. When asked about ventilator and intubation he said no to Tube down the throat and no breathing machine. Family wants to take him home with home hospice. i spoke with Dr Quan and Dr Zurita today and Dr Rojas earlier in nav[place] week and both Dr Rojas and Dr Zurita are willing to be his Hospice doctor. Discussed with PFS will start the process of home hospice set up. Plan/VTE VTE Prophylaxis Ordered?: Yes VS, I&O, 24H, Fishbone Vital Signs/I&O Vital Signs Date Time Temp Pulse Resp B/P (MAP) Pulse Ox O2 Delivery O2 Flow Rate FiO2 09/29/19 06:51 93 High Flow Cannula 3.0 09/29/19 05:22 97.0 64 23 119/64 (82) 09/28/19 17:45 95 I&O- Last 24 Hours up to 6 AM 09/29/19 06:00 Intake Total 806 ml Output Total 775 ml Balance 31 ml Laboratory Data 24H LABS Laboratory Tests 2 09/28/19 11:31: Bedside Glucose (Misc Panel) 213H 09/28/19 16:34: Bedside Glucose (Misc Panel) 290H 09/28/19 20:34: Bedside Glucose (Misc Panel) 169H Microbiology Microbiology 09/25/19 Urine Culture - Final, Complete Escherichia Coli 09/21/19 Blood Culture - Final, Complete NO GROWTH AFTER 5 DAYS 09/21/19 Respiratory Virus Panel (PCR) (MICHELA) - Final, Complete 09/21/19 Blood Culture - Final, Complete NO GROWTH AFTER 5 DAYS DANY WEST MD Sep 29, 2019 08:35
[2019-09-29 09:02] LABS: HEMATOCRIT 33.6 % (42.0-52.0); HEMOGLOBIN 10.2 g/dl (13.5-17.5); MEAN CORPUSCULAR HEMOGLOBIN 29.9 pg (27.0-33.0); MEAN CORPUSCULAR HGB CONC 30.4 g/dl (32.0-36.5); MEAN CORPUSCULAR VOLUME 98.5 fl (80.0-96.0); PLATELET COUNT, AUTOMATED 296 10^3/uL (150-450); RED BLOOD COUNT 3.41 10^6/uL (4.30-6.10); WHITE BLOOD COUNT 14.2 10^3/uL (4.0-10.0)
[2019-09-29 09:22] LABS: CALCIUM LEVEL 8.7 MG/DL (8.8-10.2); CREATININE FOR GFR 1.81 MG/DL (0.70-1.30); GLOMERULAR FILTRATION RATE 38.2 (>35); POTASSIUM SERUM 4.2 MEQ/L (3.5-5.1)
[2019-09-29 09:46] LABS: ATYPICAL LYMPH 1 % (0-5); LYMPHOCYTES 29 % (16-44); METAMYELOCYTES 3 % (0-0); MONOCYTES 9 % (0-5); MYELOCYTES 4 % (0-0); NEUTROPHILS 52 % (28-66)
[2019-09-29] MEDS: TORSEMIDE 20 MG TAB PO SCH (09:46)
[2019-09-29] MEDS: HEPARIN SOD (PORCINE) 5000 UNITS/ML VIAL SQ SCH ×2 (09:46→22:17)
[2019-09-29] MEDS: predniSONE 10 MG TAB PO SCH (09:46)
[2019-09-29] MEDS: MULTIVITAMINS/MINERALS THERAP 1 TAB PO SCH (09:46)
[2019-09-29] MEDS: glipiZIDE (GLUCOTROL) 5 MG TAB PO SCH ×2 (09:46→17:03)
[2019-09-29 09:47] LABS: ANISOCYTOSIS 1+; PLATELET ESTIMATE NORMAL (NORMAL)
[2019-09-29] MEDS: LEVEMIR (INSULIN DETEMIR) 1 UNITS/0.01ML SC SCH (09:47)
[2019-09-29] MEDS: ASPIRIN 81 MG ENTERIC TAB PO SCH (12:34)
[2019-09-29 14:00] VITALS: BP 119/59
[2019-09-29] MEDS: SPIRONOLACTONE 12.5MG PER 1/2 TABLET PO SCH (21:00)
[2019-09-29 22:00] VITALS: BP 113/70
[2019-09-29] MEDS: SIMVASTATIN 10 MG TAB PO SCH (22:18)
[2019-09-30] MEDS: ALBUTEROL SULFATE 2.5 MG/0.5 ML INH NEB SOLN NEB SCH ×7 (04:00→23:51)
[2019-09-30] MEDS: LevoFLOXacin 250 MG TABLET PO SCH (05:25)
[2019-09-30 06:00] VITALS: BP 124/86
[2019-09-30] MEDS: HumaLOG INSULIN (NovoLOG) PER UNIT SC SCH ×4 (07:30→21:04)
[2019-09-30] MEDS: BUDESONIDE 0.5 MG/2 ML INHALATION SUSPENSION INH SCH ×2 (07:49→21:21)
[2019-09-30] MEDS: TIOTROPIUM INHALER/CAPSULE (SPIRIVA) INH SCH (07:49)
[2019-09-30] MEDS: predniSONE 10 MG TAB PO SCH (08:25)
[2019-09-30] MEDS: LEVEMIR (INSULIN DETEMIR) 1 UNITS/0.01ML SC SCH (08:25)
[2019-09-30] MEDS: MULTIVITAMINS/MINERALS THERAP 1 TAB PO SCH (08:25)
[2019-09-30] MEDS: HEPARIN SOD (PORCINE) 5000 UNITS/ML VIAL SQ SCH ×2 (08:25→21:04)
[2019-09-30] MEDS: glipiZIDE (GLUCOTROL) 5 MG TAB PO SCH ×2 (08:26→18:16)
[2019-09-30] MEDS: TORSEMIDE 20 MG TAB PO SCH (08:26)
[2019-09-30] MEDS: ASPIRIN 81 MG ENTERIC TAB PO SCH (13:01)
[2019-09-30 14:00] VITALS: BP 120/65
--- NOTE | 2019-09-30 18:24 | IPNPDOC ---
Subjective Date Seen The patient was seen on 09/30/19. Subjective Chief Complaint/HPI Patient denies any complaints this am. As per staff he has been awake all night , gets anxious and agitated. Does not sleep at night. His oxygen requirements has been improving he is now on 3l to 4 liters which is his usual requirement at home also. Objective Physical Examination General Exam: Positive: Alert, Cooperative, No Acute Distress Eye Exam: Positive: PERRLA, Conjunctiva & lids normal, EOMI; Negative: Sclera icteric ENT Exam: Positive: Atraumatic, Mucous membr. moist/pink, Pharynx Normal Neck Exam: Positive: Supple; Negative: JVD, thyromegaly Chest Exam: Positive: Diminished, Other (bibasal velcro crackes) Heart Exam: Positive: Rate Normal, Regular Rhythm, Normal S1, Normal S2, Murmurs (systlic); Negative: Rubs Abdomen Exam: Positive: Normal bowel sounds, Soft; Negative: Tenderness, Hepatospenomegaly Extremity Exam: Positive: Normal pulses; Negative: Clubbing, Cyanosis, Edema Skin Exam: Positive: Nl turgor and temperature; Negative: Rash, Breakdown Neuro Exam: Positive: Normal Speech, Strength at 5/5 X4 ext, Normal Tone Psych Exam: Positive: Mental status NL, Mood NL, Memory Intact, Oriented x 3 Assessment /Plan Assessment 84 year old male with PMH of Dyslipidemia, Hypertension, Diabetes, Chronic obstructive pulmonary disease (COPD) with Chronic respiratory failure with hypoxia on 3 L, Pulmonary fibrosis, Diastolic heart failure, ejection fraction (EF) of 60% to 65%, severe tricuspid regurgitation, mild aortic regurgitation, mild mitral regurgitation, severe pulmonary hypertension, corpulmonale, Obesity, body mass index (BMI) of 30.5, Benign prostatic hypertrophy (BPH), Stage III chronic kidney disease, baseline creatinine of 1.3 to 1.4 , h/o Afib presented to the ED for generalized weakness and SOB. The patient's son stated that today when the patient was walking he appears weak and started to go down. The son was able to help the patient down to the ground. He was prescribed Keflex for an uncomplicated UTI a week ago which he has finished. The patients family became concerned with his increasing level of weakness and brought the patient to the ER for further evaluation. It was felt that he may have CHF exacerbation. Acute on chronic hypoxic respiratory failure CHF exacerbation, progression of his restrictive lung disease with acute flare of his pulmonary fibrosis Now his desaturating during minimal movement. At rest he is maintaining his oxygen saturations with 6 Liters. patient does not appear to be fluid overloaded today. His creatinine is rising will stop IV lasix and put back on home torsemide. continue with fluid restriction. Sleep with head end raised. new CXR with fibrosis and superimposed infiltrates. seen by pulmonary On Levofloxacin for UTI/ CYstitis UTI/Cystitis Ecloli will give levofloxacin. Acute on chronic diastolic congestive heart failure and acute on chronic right heart failure. Last echocardiogram was in 2017 demonstrating an EF of 60-65% Severe pulmonary hypertension 65 to 75 . severe TR. A fib so could not determime diastolic function. new echo was poor quality could not get good image to calculate the pulmonary pressure and was only 45. 1500cc fluid restriction and 2g sodium diet continue torsemide clinically he does not look fluid overloaded. Acute delirium/ acute encephalopathy confusion at night. could be sun downing and acute delirium from the hospitalization Vs it could be due to hypoxia. he is more hypoxic at night. Bronchiectasis and pulmonary fibrosis with restrictive lung disease with chronic respiratory failure with hypoxia and severe pulmonary hypertension His pulmonary function test does not show any COPD. Patient does not have COPD. continue nebs, budesonide and albuterol and levofloxacin. Patient desaturates with minimal exertion to 70s and takes several minutes to recover. today its a little better took only 3 minutes to recover. Severe pulmonary hypertension with corpulmonale on diuretics Diabetes Mellitus Type 2 start on glipizide. Sliding scale coverage FS ac and HS hypoglycemic protocol History of CAD Continue Aspirin 81 mg and Simvastatin 10mg ALLISON on CKD stage 3 due to diuresis. Now he is euvolemic will change to home diuretics. patient's new baseline is probably 1.6 to 1.8 to maintain euvolemia and comfortable breathing BPH continue home meds Hypertension with episodes of hypotension to low normal BP On diuretics only will continue. H/o Afib seen in echo of 2017 now in sinus rhythm this admission not on any anticoagulation. Dyslipidemia continue home meds. Dysphagia Had swallow eval ST is following. Severe constipation requiring finger disimpaction will give bowel regimen. Generalized weakness due to general physical deconditioning. May be increased by recent infection a week ago with use of antibiotics with mild CHF exacerbation. PT evaluation DME requirement : Hospital bed as patient needs frequent change of posture and elevation of head end to greater than 30 degrees due to severe hypoxia due to advanced pulmonary fibrosis and restrictive lung disease, severe pulmonary hypertension and diastolic CHF with frequent desaturations. Code: Discussed with patient this morning says he wants to be DNR. When asked about ventilator and intubation he said no to Tube down the throat and no nimco thing machine. Family wants to take him home with home hospice. i spoke with Dr Quan and Dr Zurita today and Dr Rojas earlier in [place] week and both Dr Rojas and Dr Zurita are willing to be his Hospice doctor. Discussed with PFS will start the process of home hospice set up. Plan/VTE VTE Prophylaxis Ordered?: Yes VS, I&O, 24H, Fishbone Vital Signs/I&O Vital Signs Date Time Temp Pulse Resp B/P (MAP) Pulse Ox O2 Delivery O2 Flow Rate FiO2 09/30/19 14:00 97.5 75 18 120/65 (83) 92 High Flow Cannula 09/30/19 10:00 3.0 09/28/19 17:45 95 I&O- Last 24 Hours up to 6 AM 09/30/19 06:00 Intake Total 1320 ml Output Total 1900 ml Balance -580 ml Laboratory Data 24H LABS Laboratory Tests 2 09/29/19 20:28: Bedside Glucose (Misc Panel) 347H 09/30/19 06:38: Bedside Glucose (Misc Panel) 86 09/30/19 11:54: Bedside Glucose (Misc Panel) 212H 09/30/19 16:42: Bedside Glucose (Misc Panel) 283H Microbiology Microbiology 09/25/19 Urine Culture - Final, Complete Escherichia Coli 09/21/19 Blood Culture - Final, Complete NO GROWTH AFTER 5 DAYS 09/21/19 Respiratory Virus Panel (PCR) (MICHELA) - Final, Complete 09/21/19 Blood Culture - Final, Complete NO GROWTH AFTER 5 DAYS DANY WEST MD Sep 30, 2019 18:24
[2019-09-30] MEDS: MIRALAX *UNIT DOSE* 17GM PACKET PO SCH (21:02)
[2019-09-30] MEDS: SENOKOT S TAB PO SCH (21:03)
[2019-09-30] MEDS: SPIRONOLACTONE 12.5MG PER 1/2 TABLET PO SCH (21:03)
[2019-09-30] MEDS: SIMVASTATIN 10 MG TAB PO SCH (21:03)
[2019-09-30 21:21] VITALS: O2SAT 93
[2019-09-30 22:00] VITALS: BP 122/62
[2019-10-01] MEDS: ALBUTEROL SULFATE 2.5 MG/0.5 ML INH NEB SOLN NEB SCH ×3 (04:00→11:34)
[2019-10-01] MEDS: LevoFLOXacin 250 MG TABLET PO SCH (05:33)
[2019-10-01 06:00] VITALS: BP 133/75
[2019-10-01] MEDS: HumaLOG INSULIN (NovoLOG) PER UNIT SC SCH (07:30)
[2019-10-01] MEDS: MIRALAX *UNIT DOSE* 17GM PACKET PO SCH (08:42)
[2019-10-01] MEDS: MULTIVITAMINS/MINERALS THERAP 1 TAB PO SCH (08:42)
[2019-10-01] MEDS: HEPARIN SOD (PORCINE) 5000 UNITS/ML VIAL SQ SCH (08:42)
[2019-10-01] MEDS: TORSEMIDE 20 MG TAB PO SCH (08:43)
[2019-10-01] MEDS: predniSONE 10 MG TAB PO SCH (08:43)
[2019-10-01] MEDS: SENOKOT S TAB PO SCH (08:43)
[2019-10-01] MEDS: LEVEMIR (INSULIN DETEMIR) 1 UNITS/0.01ML SC SCH (08:44)
[2019-10-01] MEDS: TIOTROPIUM INHALER/CAPSULE (SPIRIVA) INH SCH (08:52)
[2019-10-01] MEDS: BUDESONIDE 0.5 MG/2 ML INHALATION SUSPENSION INH SCH (08:52)
[2019-10-01] MEDS: glipiZIDE (GLUCOTROL) 5 MG TAB PO SCH (08:54)
[2019-10-02] MEDS ORDERED: predniSONE 20 MG TAB PO SCH (09:00)
== END 2019-10-01 12:09 | disposition hospice, home (50) | DRG 291 ==
LOC: M ED 14:12 → EDBD 14:12 → M ED INP 14:13 → M MSPAV 20:59 → OBSVTOIN 09-24 15:12
PROVIDERS: ADMIT Internal Medicine; ATTEND Internal Medicine Nephrology
DX: I50.33 Acute on chronic diastolic (congestive) heart failure (principal); J96.21 Acute and chronic respiratory failure with hypoxia; G93.40 Encephalopathy, unspecified; E87.2 Acidosis; N17.9 Acute kidney failure, unspecified; I48.20 Chronic atrial fibrillation, unspecified; R13.10 Dysphagia, unspecified; E78.5 Hyperlipidemia, unspecified; E11.9 Type 2 diabetes mellitus without complications; J44.9 Chronic obstructive pulmonary disease, unspecified; N40.0 Benign prostatic hyperplasia without lower urinary tract symptoms; N18.3 Chronic kidney disease, stage 3 (moderate); I27.20 Pulmonary hypertension, unspecified; I08.3 Combined rheumatic disorders of mitral, aortic and tricuspid valves; E66.9 Obesity, unspecified; Z68.31 Body mass index [BMI] 31.0-31.9, adult; Z96.652 Presence of left artificial knee joint; Z87.891 Personal history of nicotine dependence; I25.10 Atherosclerotic heart disease of native coronary artery without angina pectoris; Z79.82 Long term (current) use of aspirin; Z79.899 Other long term (current) drug therapy; I27.81 Cor pulmonale (chronic); J84.10 Pulmonary fibrosis, unspecified